=== PATIENT | female | born 1940 | race Caucasian/White ===

== ENCOUNTER → 2016-05-27 | Outpatient (CLI) | payer OTHER ==
[~2016-05-27] MED LIST: ASPI325T39 PO; CLC100X PO; CYCL0.052 OP; CYCL0.052 OPB; DULO60CA44 PO; FLAX100024 PO; GLIP-197 PO; HYDR25TA4 PO; LIVALO PO; METO1TAB66 PO; MULT-55 PO; NITR0.4S UT; NVLGI7030 SC; OMEG10003 PO; OMEP20CA9 PO; POLYSOL4 OPB; PRED20TA2 PO; RANI300T PO; TIMO0.5S35 OPB
--- NOTE | 2016-05-27 12:31 | MAMMOGRAPHY REPORT ---
BILATERAL DIGITAL SCREENING MAMMOGRAM WITH CAD: 05/27/2016 CLINICAL HISTORY: Routine screening. Patient has no complaints. TECHNIQUE: Current study was also evaluated with a Computer Aided Detection (CAD) system. Bilatera l CC and MLO views were obtained. COMPARISON: Comparison is made to exams dated: 05/19/2015 mammogram, 05/17/2014 mammogram, 04/26/2014 mammogram, 10/22/2013 mammogram, 04/24/2012 mammogram, and 04/22/2011 mammogram - [facility]. BREAST COMPOSITION: There are scattered areas of fibroglandular density in both breasts. FINDINGS: No suspicious masses, calcifications, or areas of architectural distortion are noted in e ither breast. There has been no significant interval change compared to prior exams. Bilateral katerina gn-appearing calcifications are not significantly changed. Small bilateral benign-appearing masses are not significantly changed. IMPRESSION: ACR BI-RADS CATEGORY 2: BENIGN There is no mammographic evidence of malignancy. A 1 year screening mammogram is recommended. The p atient will receive written notification of the results. Approximately 10% of breast cancers are not detected with mammography. A negative mammographic repor t should not delay biopsy if a clinically suggestive mass is present. Ramila Bond M.D. ah/:05/27/2016 11:08:45 Dry Wall Sprayer: Angelita CLEMENS)(Eric)(BD), [facility] letter sent: Normal 1/2 BI-RADS Code: ACR BI-RADS Category 2: Benign
== END | disposition home or self-care (01) ==
LOC: C.MAMM 10:24
PROVIDERS: ATTEND Internal Medicine
DX: Z12.31 Encounter for screening mammogram for malignant neoplasm of breast (principal)

== ENCOUNTER → 2016-07-08 | Outpatient (CLI) | payer OTHER ==
[~2016-07-08] MED LIST changes: +METO-452 PO; -METO1TAB66 PO
[2016-07-08 13:36] LABS: ESTIMATED AVERAGE GLUCOSE 174 mg/dl; HA1C FLAG Normal (Normal)
[2016-07-08 13:39] LABS: BLOOD UREA NITROGEN 20 mg/dl (7-18); BUN/CREATININE RATIO 21.9 (10-20); CALCIUM 8.5 mg/dl (8.5-10.1); CARBON DIOXIDE 29 mmol/L (21-32); CHLORIDE 104 mmol/L (98-107); CHOLESTEROL 186 mg/dl (0-200); CREATININE 0.89 mg/dl (0.60-1.20); GLUCOSE 190 mg/dl (70-99); POTASSIUM 4.1 mmol/L (3.5-5.1); SODIUM 139 mmol/L (136-145)
[2016-07-08 13:42] LABS: CHOLESTEROL/HDL RATIO 5.6; HDL CHOLESTEROL 33 mg/dl; TRIGLYCERIDES 170 mg/dl (0-150); VERY LOW DENSITY LIPOPROT CALC 34 mg/dl
--- NOTE | 2016-07-14 06:39 | CODING QUERY MEDICAL NECESSITY ---
SUPPORTING DIAGNOSIS NEEDED Dr. Seamus Morgan, A supporting diagnosis is required for the test/procedure performed on this patient in order for us to be reimbursed by the patient's insurance. Please provide a supporting diagnosis for the following test/procedure listed below next to the test name along with your signature. *If there is no additional diagnosis for this patient that would support the following test/procedure please document that below next to the test/procedure. Test(s)/Procedure(s) that require a supporting diagnosis: * [id number] GLYCATED HEMOGLOBIN DIAGNOSIS: DATE OF SERVICE: 07/08/16 Provider Signature: Date: Thank you Lloyd Pulliam [facility] Information Management Once completed, please kindly fax back to [phone] For questions please call [phone]
== END | disposition home or self-care (01) ==
LOC: C.LABSPEC 12:31
PROVIDERS: ATTEND Internal Medicine
DX: I25.10 Atherosclerotic heart disease of native coronary artery without angina pectoris (principal); E78.5 Hyperlipidemia, unspecified; I10 Essential (primary) hypertension; E11.65 Type 2 diabetes mellitus with hyperglycemia

== ENCOUNTER 2016-10-11 05:42 | Emergency (ER) | payer OTHER ==
[~2016-10-11] VITALS: Ht 154.9 cm; Wt 88.0 kg
[~2016-10-11 05:42] MED LIST changes: -CYCL0.052 OP; -METO-452 PO; +METO1TAB66 PO; -NVLGI7030 SC; -PRED20TA2 PO
[2016-10-11 05:46] VITALS: TEMP 36.5
[2016-10-11] MEDS ORDERED: RANITIDINE HCL 50 MG/100 ML D5W IV STA (06:07)
[2016-10-11] MEDS ORDERED: SODIUM CHLORIDE 0.9% 1000ML 1,000 ML IV STA (06:07)
[2016-10-11 06:10] VITALS: Ht 154.9 cm; Wt 88.0 kg
[2016-10-11] MEDS ORDERED: NVLGI7030 SC ×2 (06:12→06:13)
[2016-10-11 06:15] VITALS: O2SAT 92
[2016-10-11] MEDS ORDERED: CYCL0.052 OP (06:15)
--- NOTE | 2016-10-11 06:29 | EMERGENCY ROOM VISIT NOTE ---
History Report prepared by Nean: Tran Jama Under the Supervision of: Dr. Vaughn Mesa M.D. First contact with patient: 05:56 Chief Complaint: CONFUSION Stated Complaint: CONFUSION,ITCHING,RASH ON BACK/STOMACH History of Present Illness The patient is a 76 year old female who presents to the Emergency Room with complaints of an episode of confusion starting early this morning. The patient states that she has had hives on her belly and back for three days. She states that she has been taking Benadryl for them. She states she went to her PCP who told her to continue taking Benadryl and he would reevaluate her in a few days. She states that she has an appointment with him today. She notes that she is experiencing some confusion. The patient states that she last took Benadryl an hour ago. Her states that that is false. He states she last took Benadryl 5 hours ago with sleeping medication. He states that an hour later she was incoherently talking in her sleep. He states that a few moments later she got up and went to the restroom where he caught her trying to take 3 more sleeping pills. He states that he gathered them from her and told her she already took them, although she didn't remember. He reports that the patient then told him that it was for her nerves. He states that she went back to bed, but woke up an hour later to go to the restroom to take more Benadryl. The reports that at this point he wouldn't let her take them. He reports that she then stated she was thirsty, but wouldn't drink the water he had for her because there were fish in it. He reports that he got another glass of water , but she still wouldn't drink it because there were things in it. The states that the patient then went to the bathroom and yelled for him because there was something black on the toilet. The reports that there was nothing there. He notes that this was when he decided to bring her to the ED. The notes that all this time his was unstable when walking. He states that while on the way here she told him she saw 3 dogs when there was nothing there. The denies his falling and hitting her head. The patient denies abdominal pain. The patient currently rates her pain as a 6/10 in severity. Source of History: patient Onset: this morning Position: other (global) Symptom Intensity: 6/10 Quality: other (global) Timing: other (episode) Associated Symptoms: No abdominal pain Note: The patient complains of confusion, hallucinations, and being unstable on her feet. The patient's denies the patient falling and hitting her head. Review of Systems See HPI for pertinent positives & negatives. A total of 10 systems reviewed and were otherwise negative. Past Medical & Surgical Medical Problems: (1) Anxiety State Nos (2) Asthma, Unspecified (3) Congestive Heart Failure Nos (4) Depressive Disorder Nec (5) Diab Wendy Wo Compl, Type Ii Or Unspec Type, Uncontrolled (6) Diabetes (7) Esophageal Reflux (8) Hyperlipidemia Nec/Nos (9) Hypertension Nos (10) Lumbar Disc Displacement (11) Obesity, Nos (12) Pneumonia, Organism Nos (13) Unspecified Sleep Apnea Surgical Problems: (1) Percutaneous Translum Coron Angioplasty Status Family History No pertinent family history Social History Smoking Status: Never Smoker Alcohol Use: none Drug Use: none Marital Status: Housing Status: lives with significant other Occupation Status: retired Current/Historical Medications Scheduled Aspirin (Aspirin Ec), 325 MG PO QAM Cyclosporine (Ophth) (Restasis), 1 DROP OPB BID Duloxetine Hcl (Cymbalta), 60 MG PO QPM Flaxseed (Linseed) (Flaxseed Oil), 1,000 MG PO BID Hydrochlorothiazide (Hctz), 12.5 MG PO QAM Insulin Aspart 70/30 (Novolog Mix 70/30), 38 SC QAM Insulin Aspart 70/30 (Novolog Mix 70/30), 28 SC QPM Metoprolol Succinate (Toprol Xl), 50 MG PO QAM Multiple Vitamins W/ Minerals (Vision Vitamins), 1 TAB PO BID Sagle-3 Fatty Acids (Monon Oil-1000), 1,000 MG PO BID Omeprazole (Prilosec), 20 MG PO QAM Prednisone (Prednisone Tab), 0 PO DAILY Ranitidine Hcl (Zantac), 300 MG PO QPM Timolol Maleate (Ophth) (Timoptic), 1 DROP OPB QAM Scheduled PRN Nitroglycerin (Nitrostat), 0.4 MG UT UD PRN for Chest Pain Polyethylene Glycol-Propylene (Systane), 1 DROP OPB QID PRN for Dry Eye(s) Allergies Coded Allergies: No Known Allergies (Verified , 10/11/16) Physical Exam Vital Signs Date Time Temp Pulse Resp B/P (MAP) Pulse Ox O2 Delivery O2 Flow Rate FiO2 10/11/16 08:08 66 18 132/74 97 10/11/16 06:53 70 93 10/11/16 06:46 78 10/11/16 06:42 73 28 93 10/11/16 06:30 145/79 10/11/16 06:27 75 18 147/89 96 Room Air 91 132/93 86 14/79 10/11/16 06:15 92 Room Air 10/11/16 06:15 92 Room Air 10/11/16 05:46 36.5 81 20 127/82 94 Room Air Physical Exam GENERAL: Patient is a healthy-appearing well-nourished HEAD: Normocephalic atraumatic EYES: Ocular movements intact pupils equal and react to light OROPHARYNX mucous membranes are moist no exudates present no erythema or edema present NECK: Supple no nuchal rigidity CHEST: Good equal expansion LUNGS: Clear and equal to auscultation CARDIAC: Normal S1 and S2 ABDOMEN: Soft nontender no guarding BACK: No CVA tenderness EXTREMITIES: No pain upon palpation normal muscle strength in all groups no clubbing cyanosis or edema NEURO: Patient is following commands and answering questions appropriately. Alert and oriented x3 Cranial Nerves 2-12 grossly intact Medical Decision & Procedures Laboratory Results 10/11/16 06:20 Red Blood Count 4.89, Mean Corpuscular Volume 84.7, Mean Corpuscular Hemoglobin 26.6, Mean Corpuscular Hemoglobin Concent 31.4, Mean Platelet Volume 8.8, Neutrophils (%) (Auto) 64.7, Lymphocytes (%) (Auto) 26.8, Monocytes (%) (Auto) 7.4, Eosinophils (%) (Auto) 1.0, Basophils (%) (Auto) 0.1, Neutrophils # (Auto) 5.15, Lymphocytes # (Auto) 2.13, Monocytes # (Auto) 0.59, Eosinophils # (Auto) 0.08, Basophils # (Auto) 0.01 10/11/16 06:20 Test 10/11/16 06:09 10/11/16 06:20 Bedside Glucose 118 mg/dl (70-90) White Blood Count 7.96 K/uL (4.8-10.8) Red Blood Count 4.89 M/uL (4.2-5.4) Hemoglobin 13.0 g/dL (12.0-16.0) Hematocrit 41.4 % (37-47) Mean Corpuscular Volume 84.7 fL (80-100) Mean Corpuscular Hemoglobin 26.6 pg (25-34) Mean Corpuscular Hemoglobin Concent 31.4 g/dl (32-36) Platelet Count 211 K/uL (130-400) Mean Platelet Volume 8.8 fL (7.4-10.4) Neutrophils (%) (Auto) 64.7 % Lymphocytes (%) (Auto) 26.8 % Monocytes (%) (Auto) 7.4 % Eosinophils (%) (Auto) 1.0 % Basophils (%) (Auto) 0.1 % Neutrophils # (Auto) 5.15 K/uL (1.4-6.5) Lymphocytes # (Auto) 2.13 K/uL (1.2-3.4) Monocytes # (Auto) 0.59 K/uL (0.11-0.59) Eosinophils # (Auto) 0.08 K/uL (0-0.5) Basophils # (Auto) 0.01 K/uL (0-0.2) RDW Standard Deviation 50.1 fL (36.4-46.3) RDW Coefficient of Variation 16.3 % (11.5-14.5) Immature Granulocyte % (Auto) 0.0 % Immature Granulocyte # (Auto) 0.00 K/uL (0.00-0.02) Anion Gap 7.0 mmol/L (3-11) Est Creatinine Clear Calc Drug Dose 49.0 ml/min Estimated GFR () 63.8 Estimated GFR (Non- 55.1 BUN/Creatinine Ratio 22.6 (10-20) Calcium Level 8.1 mg/dl (8.5-10.1) Total Bilirubin 0.6 mg/dl (0.2-1) Direct Bilirubin 0.2 mg/dl (0-0.2) Aspartate Amino Transf (AST/SGOT) 19 U/L (15-37) Alanine Aminotransferase (ALT/SGPT) 20 U/L (12-78) Alkaline Phosphatase 131 U/L (45-117) Total Protein 7.0 gm/dl (6.4-8.2) Albumin 3.1 gm/dl (3.4-5.0) Thyroid Stimulating Hormone (TSH) 2.720 uIu/ml (0.300-4.500) Labs reviewed by ED physician. Medications Administered Medications (Trade) Dose Ordered Sig/Ramonita Route Start Time Stop Time Status Last Admin Dose Admin Sodium Chloride 1,000 ml @ 999 mls/hr Q1H1M STAT IV 10/11/16 06:07 10/11/16 07:07 DC 10/11/16 06:27 999 MLS/HR Ranitidine HCl (zANTac IV) 50 mg NOW STAT IV 10/11/16 06:07 10/11/16 06:08 DC 10/11/16 06:36 50 MG Methylprednisolone Sodium Succinate (Solu-Medrol IV) 125 mg NOW STAT IV 10/11/16 07:16 10/11/16 07:18 DC 10/11/16 07:31 125 MG ECG Indication: weakness Rate (beats per minute): 73 Rhythm: normal sinus Findings: no acute ischemic change, prolonged QT, no ectopy ED Course 0558: Past medical records reviewed. The patient was evaluated in room B2. A complete history and physical examination was performed. 0607: Ordered Ranitidine HCl 50 mg IV, NSS 1000 ml @ 999 mls/hr IV. Medical Decision Medication Reconciliation: I attest that I have personally reviewed the patient' s current medication list Blood Pressure Screening: Patient was found to have an elevated blood pressure and was referred to their primary care doctor for recheck and further treatment Differential diagnosis: Etiologies such as metabolic, infection, hypo/hyperglycemia, electrolyte abnormalities, cardiac sources, intracerebral event, toxicologic, neurologic, as well as others were entertained. This is a 76-year-old female who presents emergency department hallucinating after mixing Benadryl and her sleeping pill. Upon arrival the patient is conscious alert and oriented and I do feel that this was the cause of the reaction. In addition the patient does not have an elevation in her white blood count cell count. She is complaining of itching. Dr. Seamus Morgan's concerned about starting the patient on steroids due to her blood sugar. Pressure she looks good here so I will start her on Solu-Medrol as patient cannot stop scratching. She was also given Zantac. The patient has an appointment this afternoon with Dr. Seamus Morgan office which I believe she is well enough to follow-up with. Patient and family were in agreement with the treatment plan. Impression Primary Impression: Medication reaction Scribe Attestation The scribe's documentation has been prepared under my direction and personally reviewed by me in its entirety. I confirm that the note above accurately reflects all work, treatment, procedures, and medical decision making performed by me. Departure Information Dispostion Home / Self-Care Prescriptions Prednisone (Prednisone Tab) 20 Mg Tab 0 PO DAILY, #7 TAB 2 TABS DAILY FOR 2 DAYS, THEN 1 TAB DAILY FOR 2 DAYS, THEN 1/2 TAB DAILY FOR 2 DAYS. Prov: Vaughn Mesa MD 10/11/16 Referrals Александр Doan M.D. (PCP) Patient Instructions My [facility] Problem Qualifiers Primary Impression: Medication reaction Encounter type: initial encounter Qualified Codes: T88.7XXA - Unspecified adverse effect of drug or medicament, initial encounter
[2016-10-11 06:35] LABS: BASO % 0.1 %; BASO ABS # 0.01 K/uL (0-0.2); COMPLETE YES; HEMATOCRIT 41.4 % (37-47); LYMPH % 26.8 %; LYMPH ABS # 2.13 K/uL (1.2-3.4); MEAN CELL VOLUME 84.7 fL (80-100); MEAN CORPUSCULAR HEMOGLOBIN 26.6 pg (25-34); MEAN CORPUSCULAR HGB CONC 31.4 g/dl (32-36); MEAN PLATELET VOLUME 8.8 fL (7.4-10.4); MONO % 7.4 %; NEUT % 64.7 %; PLATELET COUNT 211 K/uL (130-400); RED BLOOD COUNT 4.89 M/uL (4.2-5.4); WHITE BLOOD COUNT 7.96 K/uL (4.8-10.8)
[2016-10-11 06:53] LABS: BUN/CREATININE RATIO 22.6 (10-20); CALCIUM 8.1 mg/dl (8.5-10.1); POTASSIUM 3.5 mmol/L (3.5-5.1)
[2016-10-11 07:04] LABS: THYROID STIMULATING HORMONE 2.72 uIu/ml (0.300-4.500)
[2016-10-11] MEDS ORDERED: METHYLPREDNISOLONE 125 MG VIAL IV STA (07:16)
[2016-10-11] MEDS ORDERED: PRED20TA2 PO (07:20)
[2016-10-11 08:08] VITALS: BP 132/74; PULSE 66; O2SAT 97
== END 2016-10-11 08:14 | disposition home or self-care (01) ==
LOC: C.EDB 05:44
DX: T88.7XXA Unspecified adverse effect of drug or medicament, initial encounter (principal); T45.0X5A Adverse effect of antiallergic and antiemetic drugs, initial encounter; X58.XXXA Exposure to other specified factors, initial encounter; F41.9 Anxiety disorder, unspecified; J45.909 Unspecified asthma, uncomplicated; F32.9 Major depressive disorder, single episode, unspecified; E11.9 Type 2 diabetes mellitus without complications; K21.9 Gastro-esophageal reflux disease without esophagitis; E78.5 Hyperlipidemia, unspecified; I10 Essential (primary) hypertension; E66.9 Obesity, unspecified; Z79.82 Long term (current) use of aspirin; Z79.4 Long term (current) use of insulin; Z79.899 Other long term (current) drug therapy

== ENCOUNTER → 2016-11-09 | Outpatient (CLI) | payer OTHER ==
[~2016-11-09] MED LIST changes: -CLC100X PO; -GLIP-197 PO; -LIVALO PO; +NVLGI7030 SC; +PRED20TA2 PO
[2016-11-09 14:01] LABS: ESTIMATED AVERAGE GLUCOSE 177 mg/dl; HA1C FLAG Normal (Normal)
== END | disposition home or self-care (01) ==
LOC: C.LABSPEC 12:24
PROVIDERS: ATTEND Internal Medicine
DX: E11.65 Type 2 diabetes mellitus with hyperglycemia (principal); I10 Essential (primary) hypertension; I25.10 Atherosclerotic heart disease of native coronary artery without angina pectoris

== ENCOUNTER → 2016-11-10 | Outpatient (CLI) | payer OTHER ==
[2016-11-10 13:55] LABS: ALT/SGPT 32 U/L (12-78); AST/SGOT 20 U/L (15-37); BLOOD UREA NITROGEN 14 mg/dl (7-18); BUN/CREATININE RATIO 16.5 (10-20); CALCIUM 8.8 mg/dl (8.5-10.1); CARBON DIOXIDE 32 mmol/L (21-32); CHLORIDE 104 mmol/L (98-107); CHOLESTEROL 210 mg/dl (0-200); CREATININE 0.84 mg/dl (0.60-1.20); GLUCOSE 108 mg/dl (70-99); POTASSIUM 3.7 mmol/L (3.5-5.1); SODIUM 140 mmol/L (136-145)
[2016-11-10 13:58] LABS: ALB/GLOB RATIO 0.8 (0.9-2); ALKALINE PHOSPHATASE 155 U/L (45-117); CHOLESTEROL/HDL RATIO 6.6; HDL CHOLESTEROL 32 mg/dl; TRIGLYCERIDES 261 mg/dl (0-150); VERY LOW DENSITY LIPOPROT CALC 52 mg/dl
--- NOTE | 2016-11-11 17:49 | CODING QUERY MEDICAL NECESSITY ---
SUPPORTING DIAGNOSIS NEEDED A supporting diagnosis is required for the test/procedure performed on this patient in order for us to be reimbursed by the patient's insurance. Please provide a supporting diagnosis for the following test/procedure listed below next to the test name along with your signature. *If there is no additional diagnosis for this patient that would support the following test/procedure please document that below next to the test/procedure. Test(s)/Procedure(s) that require a supporting diagnosis: * CMP DIAGNOSIS: * LDL DIRECT DIAGNOSIS: * LIPID PROFILE FASTING DIAGNOSIS: Provider Signature: Date: Thank you [employer] Information Management Once completed, please kindly fax back to [phone] For questions please call [phone]
== END | disposition home or self-care (01) ==
LOC: C.LABSPEC 12:36
PROVIDERS: ATTEND Internal Medicine
DX: I10 Essential (primary) hypertension (principal); I25.10 Atherosclerotic heart disease of native coronary artery without angina pectoris; E78.5 Hyperlipidemia, unspecified

== ENCOUNTER → 2016-12-08 | Outpatient (CLI) | payer OTHER ==
[2016-12-08 14:37] LABS: BASO % 0.1 %; BASO ABS # 0.01 K/uL (0-0.2); COMPLETE YES; EOS % 1.7 %; HEMATOCRIT 41.7 % (37-47); IG% 0.7 %; LYMPH % 21.9 %; LYMPH ABS # 1.97 K/uL (1.2-3.4); MEAN CELL VOLUME 85.8 fL (80-100); MEAN CORPUSCULAR HEMOGLOBIN 27.4 pg (25-34); MEAN CORPUSCULAR HGB CONC 31.9 g/dl (32-36); MEAN PLATELET VOLUME 9.2 fL (7.4-10.4); MONO % 6.5 %; NEUT % 69.1 %; PLATELET COUNT 277 K/uL (130-400); RED BLOOD COUNT 4.86 M/uL (4.2-5.4); WHITE BLOOD COUNT 8.99 K/uL (4.8-10.8)
[2016-12-08 14:50] LABS: ALT/SGPT 15 U/L (12-78); BLOOD UREA NITROGEN 16 mg/dl (7-18); BUN/CREATININE RATIO 14.5 (10-20); CALCIUM 9.1 mg/dl (8.5-10.1); CARBON DIOXIDE 28 mmol/L (21-32); CHLORIDE 103 mmol/L (98-107); GLUCOSE 156 mg/dl (70-99); POTASSIUM 3.7 mmol/L (3.5-5.1); SODIUM 138 mmol/L (136-145)
[2016-12-08 14:52] LABS: ALB/GLOB RATIO 0.8 (0.9-2); ALKALINE PHOSPHATASE 137 U/L (45-117); AST/SGOT 20 U/L (15-37)
[2016-12-08 16:10] LABS: LYME DISEASE AB IGG NEG (NEG); LYME DISEASE AB IGM NEG (NEG)
== END | disposition home or self-care (01) ==
LOC: C.LAB1850 13:13
PROVIDERS: ATTEND Internal Medicine Pulmonary Disease
DX: L50.9 Urticaria, unspecified (principal)

== ENCOUNTER → 2017-02-21 | Outpatient (CLI) | payer OTHER ==
[~2017-02-21] MED LIST changes: +METO-452 PO; -METO1TAB66 PO
--- NOTE | 2017-02-21 12:10 | DIAGNOSTIC IMAGING REPORT ---
CHEST 2 VIEWS ROUTINE CLINICAL HISTORY: Acute bronchitis. COMPARISON STUDY: Chest radiograph November 21, [address] September 23, 2014. FINDINGS: Lung volumes are normal. There is no pneumothorax or pleural effusion. Pulmonary vascularity is normal. Hazy right basilar opacity likely reflects epicardial fat pad. This is unchanged. Cardiomediastinal silhouette is stable. IMPRESSION: No acute cardiopulmonary findings. No change in appearance of the chest. Electronically signed by: Ashvin Hoang M.D. 02/21/2017 12:09 PM Dictated Date/Time: 02/21/2017 12:08 PM
== END | disposition home or self-care (01) ==
LOC: C.RAD1850 11:39
PROVIDERS: ATTEND Internal Medicine Pulmonary Disease
DX: J20.9 Acute bronchitis, unspecified (principal)

== ENCOUNTER → 2017-03-17 | Outpatient (CLI) | payer OTHER ==
[~2017-03-17] MED LIST changes: +CLR/5 PO; +DOXE10CA PO; +HYDR25CA PO; +LEVO-14 PO; +LIVALO PO; +MONT1TAB3 PO; +RANI300T2 PO
[2017-03-17 16:04] LABS: BASO % 0.6 %; BASO ABS # 0.04 K/uL (0-0.2); COMPLETE YES; EOS % 3.3 %; HEMATOCRIT 43.8 % (37-47); IG% 0.3 %; LYMPH ABS # 2.02 K/uL (1.2-3.4); MEAN CELL VOLUME 85.2 fL (80-100); MEAN CORPUSCULAR HEMOGLOBIN 26.7 pg (25-34); MEAN CORPUSCULAR HGB CONC 31.3 g/dl (32-36); MEAN PLATELET VOLUME 9.2 fL (7.4-10.4); MONO % 6.5 %; NEUT % 57.3 %; PLATELET COUNT 213 K/uL (130-400); RED BLOOD COUNT 5.14 M/uL (4.2-5.4); WHITE BLOOD COUNT 6.31 K/uL (4.8-10.8)
[2017-03-17 16:15] LABS: ALT/SGPT 22 U/L (12-78); AST/SGOT 22 U/L (15-37); BLOOD UREA NITROGEN 21 mg/dl (7-18); BUN/CREATININE RATIO 18.8 (10-20); CALCIUM 8.7 mg/dl (8.5-10.1); CARBON DIOXIDE 31 mmol/L (21-32); CHLORIDE 101 mmol/L (98-107); CHOLESTEROL 183 mg/dl (0-200); CREATININE 1.13 mg/dl (0.60-1.20); GLUCOSE 94 mg/dl (70-99); POTASSIUM 3.5 mmol/L (3.5-5.1); SODIUM 136 mmol/L (136-145); TRIGLYCERIDES 196 mg/dl (0-150); VERY LOW DENSITY LIPOPROT CALC 39 mg/dl
[2017-03-17 16:22] LABS: ALB/GLOB RATIO 0.9 (0.9-2); ALKALINE PHOSPHATASE 135 U/L (45-117); CHOLESTEROL/HDL RATIO 5.1; HDL CHOLESTEROL 36 mg/dl
[2017-03-18 07:00] LABS: ESTIMATED AVERAGE GLUCOSE 166 mg/dl; HA1C FLAG Normal (Normal)
== END | disposition home or self-care (01) ==
LOC: C.LABSPEC 15:30
PROVIDERS: ATTEND Internal Medicine
DX: I25.10 Atherosclerotic heart disease of native coronary artery without angina pectoris (principal); I10 Essential (primary) hypertension; E78.5 Hyperlipidemia, unspecified; E11.65 Type 2 diabetes mellitus with hyperglycemia; E03.9 Hypothyroidism, unspecified

== ENCOUNTER → 2017-04-07 | Outpatient (CLI) | payer OTHER ==
[~2017-04-07] MED LIST changes: -OMEG10003 PO; -PRED20TA2 PO; -RANI300T PO; +TIMO-31 OPB; -TIMO0.5S35 OPB
--- NOTE | 2017-04-07 12:58 | DIAGNOSTIC IMAGING REPORT ---
CHEST 2 VIEWS ROUTINE CLINICAL HISTORY: 77 years-old Female presenting with R05 [id number]. TECHNIQUE: PA and lateral views of the chest were obtained. COMPARISON: 02/21/2017. FINDINGS: Atherosclerosis of aortic arch. Cardiac silhouette enlarged. Apparent double density along the right heart border may relate to left atrial enlargement, unchanged. Nodular opacity at the right lung base. Minimal obscuration of the left ventricular apex may be related to a prominent pericardial fat pad. No pleural effusion or pneumothorax. Scoliotic curvature of the thoracolumbar junction. Upper abdomen normal. IMPRESSION: 1. Nodular opacity at the right lung base unchanged since 2013 consistent with benign etiology. 2. No convincing evidence of acute cardiopulmonary disease. 3. Cardiomegaly with suspected left atrial enlargement. Electronically signed by: Rafita Salcedo M.D. 04/07/2017 12:57 PM Dictated Date/Time: 04/07/2017 12:54 PM
== END | disposition home or self-care (01) ==
LOC: C.RAD1850 12:41
PROVIDERS: ATTEND Physician Assistant
DX: R05 Cough (principal); R91.1 Solitary pulmonary nodule; I51.7 Cardiomegaly

== ENCOUNTER → 2017-04-18 | Day surgery (SDC) | payer OTHER ==
[2017-03-22 11:40] VITALS: Ht 152.4 cm; Wt 88.2 kg
[~2017-04-18] VITALS: Ht 152.4 cm; Wt 88.2 kg
[~2017-04-18] MED LIST changes: +500ML BSS 0.3ML EPI 1:1000PF IRRIG ONE; +ACETAMINOPHEN 325 MG TAB PO PRN; +AMVISC PLUS 0.8ML SYRINGE INT OCU ONE; +ATROPINE SULFATE 0.1 MG/ML 5ML SYR IV PRN; +BRIMONIDINE TART 0.2% OP SOLN PER DROP CHARGE ONE; +BRIMONIDINE TARTRATE 0.2% 5ML ONE; +BSS FLUSH ONE; +ENDOCOAT 0.85ML SYRINGE INT OCU ONE; +EpHEDrine SULFATE INJ 50 MG/ML AMP IV PRN; +EpINEphrine INJ 1MG/ML AMP 1 MG/ML AMP ONE; +LACTATED RINGER'S 1000ML 500 ML IV SCH; +LIDOCAINE 4% OP SOLN DROP CHARGE ONE; +LIDOCAINE 4% OP SOLN DROP CHARGE OPL SCH; +LIDOCAINE HCL 1% MPF 2 ML VIAL ONE; +MIDAZOLAM HCL 1 MG/ML 2ML VIAL ONE; +MOXIFLOXACIN OPH SOLN PER DROP CHARGE ONE; +POVIDONE-IODINE OP SOLN 30 ML BTL ONE; +PROPARACAINE 0.5% OP SOLN PER DROP CHARGE OPL SCH; -TIMO-31 OPB; +TIMO0.5S35 OPB; +TOBRAMYCIN/DEXAMETHASONE OPH OINT PER APPLN CHARGE ONE
[2017-04-18] MEDS: PHENYLEPHRINE HCL 2.5% OP SOLN PER DROP CHARGE OPL SCH ×2 (06:36→06:43)
[2017-04-18] MEDS: TROPICAMIDE 1% OP SOLN PER DROP CHARGE OPL SCH ×2 (06:38→06:44)
[2017-04-18] MEDS: CYCLOPENTOLATE HCL 1% OP SOLN PER DROP CHARGE OPL SCH ×2 (06:39→06:48)
[2017-04-18] MEDS: KETOROLAC 0.5% OP SOLN PER DROP CHARGE OPL SCH ×2 (06:40→06:49)
[2017-04-18] MEDS: MOXIFLOXACIN OPH SOLN PER DROP CHARGE OPL SCH ×2 (06:42→06:53)
--- NOTE | 2017-04-18 06:55 | History & Physical Bridge - SC ---
H&P Re-Evaluation Bridge Note: I have examined the patient, reviewed the History & Physical and in the interval since the performance of the History & Physical I have noted the following changes of clinical significance: No changes noted
--- NOTE | 2017-04-18 07:31 | [facility] Operative Report ---
Operative Report Operative Date Apr 18, 2017. Pre-Operative Diagnosis Cataract Left Eye Post-Operative Diagnosis Same Procedure(s) Performed Left Cataract Phacoemulsification With Intraocular Lens Implant Surgeon Dr. Dempsey Cow Tester Surgeon(s) None Estimated Blood Loss 0 Findings cataract left eye Fluids (cc crystalloids) see anesthesia record Specimens None Drains none Anesthesia local with sedation Complication(s) None Disposition Recovery Room / PACU Implants [id number] 23.5 Indications decreased vision left eye Description of Procedure After informed consent was obtained in the holding area the patient was wheeled back to the operating room where cardiac monitoring leads and oxygen by nasal cannula was administered by Anesthesia. Gentle IV sedation was given, and the patient's left eye was prepped and draped in usual sterile fashion. A wire lid speculum was placed into the left eye and the operating microscope was swung into position. Using 0.12 forceps and a Supersharp blade a paracentesis port was made 2 o'clock hours away from the 3 o'clock position of the patient's left eye. 1% non-preserved Lidocaine was then injected into the anterior chamber for anesthesia. A 2.0 mm keratotome blade was then used to make a shelved clear corneal incision at the 3 o'clock position of the left eye. Amvisc was injected into the anterior chamber and a cystotome and Utrata forceps were used to perform a curvilinear capsulorrhexis. BSS on a hydrodissection cannula was used to hydrodissect the lens nucleus away from the capsular bag. The phacoemulsification handpiece was then used in a stop and chop fashion to remove the lens nucleus. The irrigation and aspiration handpiece was then used to remove the residual cortical material. Amvisc was injected into the capsular bag and anterior chamber and a [employer]ch [employer] Lomb MX60 23.5 Diopter intraocular lens was injected into the capsular bag. Irrigation and aspiration handpiece was used to remove the residual viscoelastic material. The wounds were hydrated and noted to be watertight. The wire lid speculum was removed from the eye. Vigamox, Brimonidine, and TobraDex ointment were placed on the eye and it was shielded. It should be noted that EndoCoat was used extensively during the case to protect the cornea endothelium. DISPOSITION: The patient tolerated the procedure well and was wheeled to the post anesthesia care unit in stable condition. I attest to the content of the Intraoperative Record and any orders documented therein. Any exceptions are noted below. I attest to the content of the Intraoperative Record and any orders documented therein. Any exceptions are noted below.
--- NOTE | 2017-04-18 07:32 | Discharge Instructions-SurgCtr ---
Discharge Instructions Date of Service Apr 18, 2017. Visit Reason for Visit: Cataract Left Eye Discharge Discharge Diagnosis / Problem: Cataract left eye Discharge Goals Goal(s): Improve function Activity Recommendations Activity Limitations: per Instructions/Follow-up section Lifting Limitations: no more than 5 pounds Anesthesia . Post Anesthesia Instructions: If you have had General Anesthesia or IV Sedation: * Do not drive today. * Resume driving when surgeon permits. * Do not make important decisions or sign legal documents today. * Call surgeon for: 1. Temperature elevations greater than 101 degrees F. 2. Uncontrollable pain. 3. Excessive bleeding. 4. Persistent nausea and vomiting. 5. Medication intolerance (nausea, vomiting or rash). * For nausea and vomiting use only clear liquids such as: tea, soda, bouillon until nausea subsides, then gradually increase diet as tolerated. * If you have any concerns or questions, call your surgeon's office. If physician is unavailable and it is an emergency, call 911 or go to the nearest emergency room. . Instructions / Follow-Up Instructions / Follow-Up ACTIVITY RECOMMENDATIONS: * Light activities * You may walk outside, read, watch television. * Mild irritation and blurred vision are common for the first few days, redness around the white part of the eye is common. MEDICATIONS: Resume previous medications unless instructed otherwise by your surgeon. Eye drops (today and tomorrow): Vigamox or Polytrim - one drop in operative eye every 2 hours while awake Prednisolone 1% - one drop in operative eye every 2 hours while awake SPECIAL CARE INSTRUCTIONS: * If any problems or concerns, please call Dr. Dempsey's office at . * Keep plastic shield taped over eye to sleep at night. * Keep plastic shield taped over eye except to administer eye drops. * Keep plastic shield on until office visit the following day. FOLLOW UP VISIT: Follow-up with Dr. Dempsey in the [place] office as scheduled. If not already scheduled, please call the office at . Diet Recommendations Home Diet: resume previous diet Procedures Procedures Performed: Left Cataract Phacoemulsification With Intraocular Lens Implant Pending Studies Studies pending at discharge: no Medical Emergencies . Who to Call and When: Medical Emergencies: If at any time you feel your situation is an emergency, please call 911 immediately. . Non-Emergent Contact Non-Emergency issues call your: [employer] T[employer] Assembler . . "Provider Documentation" section prepared by Clay Dempsey. .
[2017-04-18 07:34] VITALS: TEMP 36.2
[2017-04-18 07:59] VITALS: BP 124/73; PULSE 61; O2SAT 95
--- NOTE | 2017-04-18 08:00 | Anesthesiology Progress Note ---
Anesthesia Post Op Note Date & Time Apr 18, 2017 at 07:59 Vital Signs Pain Intensity: 0 Vital Signs Past 12 Hours Date Time Temp Pulse Resp B/P (MAP) Pulse Ox O2 Delivery O2 Flow Rate FiO2 04/18/17 07:34 36.2 64 18 107/69 (82) 96 Room Air 04/18/17 06:30 36.7 76 16 118/71 (87) 97 Room Air Notes Mental Status: alert / awake / arousable, participated in evaluation Nausea / Vomiting: adequately controlled Pain: adequately controlled Airway Patency, RR, SpO2: stable & adequate BP & HR: stable & adequate Anesthetic Complications: no major complications apparent
== END | disposition home or self-care (01) ==
LOC: X.SURG 06:10
PROVIDERS: ATTEND Ophthalmology
DX: E11.36 Type 2 diabetes mellitus with diabetic cataract (principal); H26.9 Unspecified cataract; I10 Essential (primary) hypertension; F32.9 Major depressive disorder, single episode, unspecified; G47.33 Obstructive sleep apnea (adult) (pediatric); I25.10 Atherosclerotic heart disease of native coronary artery without angina pectoris; Z98.890 Other specified postprocedural states; Z90.710 Acquired absence of both cervix and uterus; Z90.89 Acquired absence of other organs; E66.9 Obesity, unspecified; Z68.38 Body mass index [BMI] 38.0-38.9, adult

== ENCOUNTER → 2017-04-27 | Outpatient (CLI) | payer OTHER ==
[~2017-04-27] MED LIST changes: -500ML BSS 0.3ML EPI 1:1000PF IRRIG ONE; -ACETAMINOPHEN 325 MG TAB PO PRN; -AMVISC PLUS 0.8ML SYRINGE INT OCU ONE; -ATROPINE SULFATE 0.1 MG/ML 5ML SYR IV PRN; -BRIMONIDINE TART 0.2% OP SOLN PER DROP CHARGE ONE; -BRIMONIDINE TARTRATE 0.2% 5ML ONE; -BSS FLUSH ONE; -ENDOCOAT 0.85ML SYRINGE INT OCU ONE; -EpHEDrine SULFATE INJ 50 MG/ML AMP IV PRN; -EpINEphrine INJ 1MG/ML AMP 1 MG/ML AMP ONE; -LACTATED RINGER'S 1000ML 500 ML IV SCH; -LIDOCAINE 4% OP SOLN DROP CHARGE ONE; -LIDOCAINE 4% OP SOLN DROP CHARGE OPL SCH; -LIDOCAINE HCL 1% MPF 2 ML VIAL ONE; -MIDAZOLAM HCL 1 MG/ML 2ML VIAL ONE; -MOXIFLOXACIN OPH SOLN PER DROP CHARGE ONE; -POVIDONE-IODINE OP SOLN 30 ML BTL ONE; -PROPARACAINE 0.5% OP SOLN PER DROP CHARGE OPL SCH; -TOBRAMYCIN/DEXAMETHASONE OPH OINT PER APPLN CHARGE ONE
--- NOTE | 2017-04-27 12:38 | DIAGNOSTIC IMAGING REPORT ---
L RIBS UNILATERAL WITH PA CHEST CLINICAL HISTORY: LEFT RIB PAIN pain COMPARISON STUDY: None FINDINGS: Moderate cardiomegaly. Lungs are considered clear. Evaluation of the ribs is a nondisplaced cortical fracture anterior left seventh rib. All remaining ribs are unremarkable. No evidence for pneumothorax. IMPRESSION: 1. Nondisplaced cortical fracture anterior left seventh rib. 2. Otherwise negative study. 3. No acute process of the chest. The above report was generated using voice recognition software. It may contain grammatical, syntax or spelling errors. Electronically signed by: Corby Field M.D. 04/27/2017 12:37 PM Dictated Date/Time: 04/27/2017 12:35 PM
== END | disposition home or self-care (01) ==
LOC: C.RAD 12:02
PROVIDERS: ATTEND Internal Medicine
DX: R07.81 Pleurodynia (principal); S22.32XA Fracture of one rib, left side, initial encounter for closed fracture; X58.XXXA Exposure to other specified factors, initial encounter

== ENCOUNTER → 2017-05-02 | Day surgery (SDC) | payer OTHER ==
[2017-04-29 14:47] VITALS: Ht 152.4 cm; Wt 88.2 kg
[~2017-05-02] VITALS: Ht 152.4 cm; Wt 88.2 kg
[~2017-05-02] MED LIST changes: +ATROPINE SULFATE 0.1 MG/ML 5ML SYR IV PRN; +BRIMONIDINE TART 0.2% OP SOLN PER DROP CHARGE ONE; +CYCLOPENTOLATE HCL 1% OP SOLN PER DROP CHARGE OPR SCH; +EpHEDrine SULFATE INJ 50 MG/ML AMP IV PRN; +EpINEphrine INJ 1MG/ML AMP 1 MG/ML AMP ONE; +KETOROLAC 0.5% OP SOLN PER DROP CHARGE OPR SCH; +LIDOCAINE 4% OP SOLN DROP CHARGE ONE; +LIDOCAINE 4% OP SOLN DROP CHARGE OPR SCH; +LIDOCAINE HCL 1% MPF 2 ML VIAL ONE; +MIDAZOLAM HCL 1 MG/ML 2ML VIAL ONE; +MOXIFLOXACIN OPH SOLN PER DROP CHARGE ONE; +MOXIFLOXACIN OPH SOLN PER DROP CHARGE OPR SCH; +ONDANSETRON INJ 2 MG/ML 2 ML VIAL IV PRN; +PHENYLEPHRINE HCL 2.5% OP SOLN PER DROP CHARGE OPR SCH; +POVIDONE-IODINE OP SOLN 30 ML BTL ONE; +PROPARACAINE 0.5% OP SOLN PER DROP CHARGE OPR SCH; +TOBRAMYCIN/DEXAMETHASONE OPH OINT PER APPLN CHARGE ONE; +TROPICAMIDE 1% OP SOLN PER DROP CHARGE OPR SCH
[2017-05-02 06:33] VITALS: BP 157/68; PULSE 76; TEMP 38.1; O2SAT 94
== END | disposition home or self-care (01) ==
LOC: X.SURG 06:30
PROVIDERS: ATTEND Ophthalmology
DX: H26.9 Unspecified cataract (principal); Z53.9 Procedure and treatment not carried out, unspecified reason

== ENCOUNTER → 2017-06-20 | Day surgery (SDC) | payer OTHER ==
[2017-05-30 11:56] VITALS: Ht 152.4 cm; Wt 88.6 kg
[~2017-06-20] VITALS: Ht 152.4 cm; Wt 88.6 kg
[~2017-06-20] MED LIST changes: +500ML BSS 0.3ML EPI 1:1000PF IRRIG ONE; +ACETAMINOPHEN 325 MG TAB PO PRN; +AMVISC PLUS 0.8ML SYRINGE INT OCU ONE; +BSS FLUSH ONE; -CYCLOPENTOLATE HCL 1% OP SOLN PER DROP CHARGE OPR SCH; +ENDOCOAT 0.85ML SYRINGE INT OCU ONE; -KETOROLAC 0.5% OP SOLN PER DROP CHARGE OPR SCH; +LACTATED RINGER'S 1000ML 500 ML IV SCH; -MOXIFLOXACIN OPH SOLN PER DROP CHARGE OPR SCH; -ONDANSETRON INJ 2 MG/ML 2 ML VIAL IV PRN; -PHENYLEPHRINE HCL 2.5% OP SOLN PER DROP CHARGE OPR SCH; -TROPICAMIDE 1% OP SOLN PER DROP CHARGE OPR SCH
[2017-06-20] MEDS: PHENYLEPHRINE HCL 2.5% OP SOLN PER DROP CHARGE OPR SCH ×2 (07:35→07:44)
[2017-06-20] MEDS: TROPICAMIDE 1% OP SOLN PER DROP CHARGE OPR SCH ×2 (07:36→07:45)
[2017-06-20] MEDS: CYCLOPENTOLATE HCL 1% OP SOLN PER DROP CHARGE OPR SCH ×2 (07:37→07:46)
[2017-06-20] MEDS: KETOROLAC 0.5% OP SOLN PER DROP CHARGE OPR SCH ×2 (07:38→07:47)
[2017-06-20] MEDS: MOXIFLOXACIN OPH SOLN PER DROP CHARGE OPR SCH ×2 (07:39→07:48)
--- NOTE | 2017-06-20 08:30 | [facility] Operative Report ---
Operative Report Operative Date Jun 20, 2017. Pre-Operative Diagnosis Right eye cataract Post-Operative Diagnosis Same as preop Procedure(s) Performed Right Cataract Phacoemulsification With Intraocular Lens Implant Surgeon Dr. Dempsey Senior Mechanical Estimator Surgeon(s) None Estimated Blood Loss 0 mL Findings cataract right eye Fluids see anesthesia record Specimens None Drains None Anesthesia Type MAC Complication(s) none Disposition no Recovery Room / PACU Indications decreased vision right eye Description of Procedure After informed consent was obtained in the holding area the patient was wheeled back to the operating room where cardiac monitoring leads and oxygen by nasal cannula was administered by Anesthesia. Gentle IV sedation was given, and the patient's right eye was prepped and draped in usual sterile fashion. A wire lid speculum was placed into the right eye and the operating microscope was swung into position. Using 0.12 forceps and a Supersharp blade a paracentesis port was made 2 o'clock hours away from the 9 o'clock position of the patient's right eye. 1% non-preserved Lidocaine was then injected into the anterior chamber for anesthesia. A 2.0 mm keratotome blade was then used to make a shelved clear corneal incision at the 9 o'clock position of the right eye. Amvisc was injected into the anterior chamber and a cystotome and Utrata forceps were used to perform a curvilinear capsulorrhexis. BSS on a hydrodissection cannula was used to hydrodissect the lens nucleus away from the capsular bag. The phacoemulsification handpiece was then used in a stop and chop fashion to remove the lens nucleus. The irrigation and aspiration handpiece was then used to remove the residual cortical material. Amvisc was injected into the capsular bag and anterior chamber and a Bausch [employer] Lomb MX60 23.5 Diopter intraocular lens was injected into the capsular bag. Irrigation and aspiration handpiece was used to remove the residual viscoelastic material. The wounds were hydrated and noted to be watertight. The wire lid speculum was removed from the eye. Vigamox, Brimonidine, and TobraDex ointment were placed on the eye and it was shielded. It should be noted that EndoCoat was used extensively during the case to protect the cornea endothelium. DISPOSITION: The patient tolerated the procedure well and was wheeled to the post anesthesia care unit in stable condition. I attest to the content of the Intraoperative Record and any orders documented therein. Any exceptions are noted below. I attest to the content of the Intraoperative Record and any orders documented therein. Any exceptions are noted below.
--- NOTE | 2017-06-20 08:31 | Discharge Instructions-SurgCtr ---
Discharge Instructions Date of Service Jun 20, 2017. Visit Reason for Visit: Cataract Right Eye Discharge Discharge Diagnosis / Problem: cataract right eye Discharge Goals Goal(s): Improve function Activity Recommendations Activity Limitations: per Instructions/Follow-up section Lifting Limitations: no more than 5 pounds Anesthesia . Post Anesthesia Instructions: If you have had General Anesthesia or IV Sedation: * Do not drive today. * Resume driving when surgeon permits. * Do not make important decisions or sign legal documents today. * Call surgeon for: 1. Temperature elevations greater than 101 degrees F. 2. Uncontrollable pain. 3. Excessive bleeding. 4. Persistent nausea and vomiting. 5. Medication intolerance (nausea, vomiting or rash). * For nausea and vomiting use only clear liquids such as: tea, soda, bouillon until nausea subsides, then gradually increase diet as tolerated. * If you have any concerns or questions, call your surgeon's office. If physician is unavailable and it is an emergency, call 911 or go to the nearest emergency room. . Instructions / Follow-Up Instructions / Follow-Up ACTIVITY RECOMMENDATIONS: * Light activities * You may walk outside, read, watch television. * Mild irritation and blurred vision are common for the first few days, redness around the white part of the eye is common. MEDICATIONS: Resume previous medications unless instructed otherwise by your surgeon. Eye drops (today and tomorrow): Polytrim - one drop in operative eye every 2 hours while awake Prednisolone 1% - one drop in operative eye every 2 hours while awake SPECIAL CARE INSTRUCTIONS: * If any problems or concerns, please call Dr. Dempsey's office at . * Keep plastic shield taped over eye to sleep at night. * Keep plastic shield taped over eye except to administer eye drops. * Keep plastic shield on until office visit the following day. FOLLOW UP VISIT: Follow-up with Dr. Dempsey in the [place] office as scheduled. If not already scheduled, please call the office at . Diet Recommendations Home Diet: resume previous diet Procedures Procedures Performed: Right Cataract Phacoemulsification With Intraocular Lens Implant Pending Studies Studies pending at discharge: no Medical Emergencies . Who to Call and When: Medical Emergencies: If at any time you feel your situation is an emergency, please call 911 immediately. . Non-Emergent Contact Non-Emergency issues call your: Disability Manager . . "Provider Documentation" section prepared by Clay Dempsey. .
[2017-06-20 08:33] VITALS: TEMP 36.7
[2017-06-20 08:54] VITALS: BP 135/87; PULSE 56; O2SAT 97
--- NOTE | 2017-06-20 09:02 | Anesthesia Progress Nt - [facility] ---
Anesthesia Post Op Note Date & Time Jun 20, 2017 at 09:02 Vital Signs Pain Intensity: 0 Vital Signs Past 12 Hours Date Time Temp Pulse Resp B/P (MAP) Pulse Ox O2 Delivery O2 Flow Rate FiO2 06/20/17 08:54 56 18 135/87 (103) 97 Room Air 06/20/17 08:33 36.7 58 16 133/78 (96) 96 Room Air 06/20/17 07:12 36.6 68 18 144/82 (102) 95 Room Air Notes Mental Status: alert / awake / arousable, participated in evaluation Pt Amnestic to Procedure: Yes Nausea / Vomiting: adequately controlled Pain: adequately controlled Airway Patency, RR, SpO2: stable & adequate BP & HR: stable & adequate Hydration State: stable & adequate Anesthetic Complications: no major complications apparent
== END | disposition home or self-care (01) ==
LOC: X.SURG 06:59
PROVIDERS: ATTEND Ophthalmology
DX: H25.11 Age-related nuclear cataract, right eye (principal); I10 Essential (primary) hypertension; E11.9 Type 2 diabetes mellitus without complications; E78.00 Pure hypercholesterolemia, unspecified; F41.9 Anxiety disorder, unspecified; F32.9 Major depressive disorder, single episode, unspecified; I51.9 Heart disease, unspecified; Z79.899 Other long term (current) drug therapy; Z79.82 Long term (current) use of aspirin; Z79.4 Long term (current) use of insulin

== ENCOUNTER → 2017-08-01 | Outpatient (CLI) | payer OTHER ==
[~2017-08-01] MED LIST changes: -500ML BSS 0.3ML EPI 1:1000PF IRRIG ONE; -ACETAMINOPHEN 325 MG TAB PO PRN; -AMVISC PLUS 0.8ML SYRINGE INT OCU ONE; -ATROPINE SULFATE 0.1 MG/ML 5ML SYR IV PRN; -BRIMONIDINE TART 0.2% OP SOLN PER DROP CHARGE ONE; -BSS FLUSH ONE; -ENDOCOAT 0.85ML SYRINGE INT OCU ONE; -EpHEDrine SULFATE INJ 50 MG/ML AMP IV PRN; -EpINEphrine INJ 1MG/ML AMP 1 MG/ML AMP ONE; -LACTATED RINGER'S 1000ML 500 ML IV SCH; -LIDOCAINE 4% OP SOLN DROP CHARGE ONE; -LIDOCAINE 4% OP SOLN DROP CHARGE OPR SCH; -LIDOCAINE HCL 1% MPF 2 ML VIAL ONE; -MIDAZOLAM HCL 1 MG/ML 2ML VIAL ONE; -MOXIFLOXACIN OPH SOLN PER DROP CHARGE ONE; -POVIDONE-IODINE OP SOLN 30 ML BTL ONE; -PROPARACAINE 0.5% OP SOLN PER DROP CHARGE OPR SCH; -TIMO0.5S35 OPB; +TIMO0.5S4 OPB; -TOBRAMYCIN/DEXAMETHASONE OPH OINT PER APPLN CHARGE ONE
--- NOTE | 2017-08-01 12:25 | DIAGNOSTIC IMAGING REPORT ---
CHEST 2 VIEWS ROUTINE HISTORY: 77 years-old Female J20.9 , R04.2 acute congestion with productive cough COMPARISON: Chest radiographs 04/07/2017 TECHNIQUE: PA and lateral views of the chest FINDINGS: Cardiac silhouette is again mildly enlarged, unchanged. Calcification of the aorta redemonstrated. Unchanged subcentimeter nodular opacity of the right lung base measuring 12 mm. No pneumothorax, pleural effusion, new focal airspace consolidation or overt pulmonary edema. Degenerative changes of the shoulders and spine. IMPRESSION: Cardiomegaly without acute process The above report was generated using voice recognition software. It may contain grammatical, syntax or spelling errors. Electronically signed by: Uvaldo Yo M.D. 08/01/2017 12:24 PM Dictated Date/Time: 08/01/2017 12:22 PM
== END | disposition home or self-care (01) ==
LOC: C.LAB1850 12:04
PROVIDERS: ATTEND Internal Medicine Pulmonary Disease
DX: J20.9 Acute bronchitis, unspecified (principal); R04.2 Hemoptysis; I51.7 Cardiomegaly

== ENCOUNTER → 2017-11-16 | Outpatient (CLI) | payer OTHER ==
[~2017-11-16] MED LIST changes: +TIMO-31 OPB; -TIMO0.5S4 OPB
[2017-11-16 18:25] LABS: ALBUMIN 3.6 gm/dl (3.4-5.0); ALKALINE PHOSPHATASE 134 U/L (45-117); ALT/SGPT 27 U/L (12-78); AST/SGOT 23 U/L (15-37); BLOOD UREA NITROGEN 20 mg/dl (7-18); CALCIUM 8.5 mg/dl (8.5-10.1); CARBON DIOXIDE 28 mmol/L (21-32); CHOLESTEROL 176 mg/dl (0-200); CREATININE 1.14 mg/dl (0.60-1.20); GLUCOSE 51 mg/dl (70-99); LDL CHOLESTEROL (DIRECT) 127 mg/dl; POTASSIUM 3.8 mmol/L (3.5-5.1); SODIUM 138 mmol/L (136-145); TOTAL PROTEIN 8.1 gm/dl (6.4-8.2)
[2017-11-17 06:27] LABS: HEMOGLOBIN A1C 8.2 % (4.5-5.6)
== END | disposition home or self-care (01) ==
LOC: C.LABSPEC 17:32
PROVIDERS: ATTEND Internal Medicine
DX: I25.10 Atherosclerotic heart disease of native coronary artery without angina pectoris (principal); E11.65 Type 2 diabetes mellitus with hyperglycemia; E78.5 Hyperlipidemia, unspecified; I10 Essential (primary) hypertension

== ENCOUNTER 2021-02-07 20:31 | Inpatient (IN) ==
[2021-02-07] MEDS ORDERED: SODIUM CHLORIDE 0.9% 500 ML IV STA (20:53)
[2021-02-07] MEDS ORDERED: ONDANSETRON INJ 2 MG/ML 2 ML VIAL IV STA (20:53)
[2021-02-07] MEDS ORDERED: ACETAMINOPHEN 1000 MG/100 ML IV IV STA (20:53)
--- NOTE | 2021-02-07 21:02 | Emergency Department Note ---
Impression & Plan Precordial chest pain, Right rib fracture, Compression fracture of T4 vertebra, Traumatic hematoma of buttock, Fall down stairs, Contusion of left hand, Contusion of right hand ED Provider Note NAME: EDGARDO CASTELLANO AGE: 80 SEX: F : 1940 ARRIVES VIA: Ambulance INFORMANT: [Patient][family, nursing] ED PROVIDER(S): [Doroteo Huerta MD] CHIEF COMPLAINT: Chest pain, fall HISTORY OF PRESENT ILLNESS: The patient is a 80-year-old female who states that she has had chest pain on the left that has been moderate in severity for around 2 weeks. She was on her way to the hospital to have things checked and fell down 14 [address] stairs. She thinks that she tumbled down the stairs. As per her family, she was confused at the bottom for 2 or 3 minutes but then came back to her normal mental state. She struck her head but did not lose consciousness. She presents in a stiff cervical collar. She complains of pain along the right posterior chest wall and the right lower back. She has bruising to both dorsal hands. Her left shoulder is a bit sore. She denies any headache or neck pain. She denies any abdominal pain. No lower extremity discomfort. She does take aspirin, no other stronger blood thinners. Her blood sugar at the house was around 230 as per her family. REVIEW OF SYSTEMS: See HPI for pertinent positives and negatives. A total of ten systems were reviewed and were otherwise negative. PMHx/PSHx: See Below SOCIAL HISTORY: See Below. PHYSICAL EXAM: GENERAL: Patient is in no acute distress. HEENT: No acute trauma, normocephalic atraumatic, mucous membranes moist, no nasal congestion, no scleral icterus. NECK: No stridor, no adenopathy, stiff collar in place. LUNGS: Clear to auscultation bilaterally, no wheeze, no rhonchi, breath sounds equal. HEART: Without murmurs gallops or rubs, mildly tachycardic, regular rhythm. ABDOMEN: Soft, nontender, bowel sounds positive, no hernias, no peritonitis. EXTREMITIES: No cyanosis or edema. She has contusions forming to the dorsum of both hands at the base of her fingers-no significant pain over the contusions with palpation. No gross deformities. She does have some pain with palpation of the right fifth PIP joint, no gross deformity. The wrists, elbows and shoulders do not seem to give her any discomfort with movement. No pain to move the joints of the lower extremities. NEUROLOGIC: Oriented x 3, no acute motor or sensory deficits, no focal weakness. SKIN: No rash, no jaundice, no diaphoresis. Back: No contusions, no bony step-offs. There is a larger hematoma noted to the left buttock. DIFFERENTIAL DIAGNOSIS: Cardiac ischemia, aortic dissection, pulmonary embolism, pneumothorax, pneumonia, pericarditis, myocarditis, esophageal rupture, GERD, cholecystitis, pancreatitis, as well as other pathologies. Differential also includes intrac ranial injury, C-spine injury, thoracic or lumbar spine injury, rib fracture, pneumothorax, intra-abdominal trauma, extremity fracture, contusion, sprain, strain, among others. EMERGENCY DEPARTMENT COURSE/PROCEDURES: ECG: Indication was chest pain and fall. The ECG shows a sinus tachycardia with a rate of 122. There is no ST elevation, no PVCs. The QTc is 475. Continuous Cardiac Monitoring: An order was placed for continuous cardiac m onitoring. The monitor shows a rate of 108 with sinus tachycardia. Critical Care Note: I have personally spent 53 minutes of critical care time in the direct management of this patient. This includes bedside care, interpretation of diagnostic studies, and testing, discussion with consultants, patient, and family members, and other required patient management activities. This 53 minutes is in excess of all separately billable procedures. MEDICAL DECISION MAKING: There is a moderate leukocytosis at 18,000, this could be consistent with infection or just her pain. There is a normal hemoglobin and platelet count. No coagulopathy. Creatinine was slightly high at 1.4, no concerning electrolyte abnormality. Alk phos mildly elevated, the remaining liver enzymes were unremarkable. There was no evidence for pancreatitis. The patient appeared to be in a euthyroid state. ECG initially showed a sinus tachycardia, there was no acute ischemia. Cardiac enzyme testing x1 was not consistent with acute cardiac injury. Bilateral hand films did not show any obvious fractures. Brain CT showed no acute bleed or mass-effect. C-spine CT showed no acute fracture. Chest and abdominal CTs were performed, there were 2 rib fractures on the right, there was no evidence for any traumatic intra-abdominal injury. Thoracic spine CT showed a subtle T4 compression fracture. Lumbar spine CT did not show any acute fracture. The patient was given IV Tylenol, she wanted nothing further for pain. She received IV Zofran and IV saline. The patient's in need of a hospital stay. She is in significant pain from her traumatic injuries. She needs some monitoring, pain control and PT/OT evaluations. She may even require rehab as an inpatient. With regard to her left chest pain for 2 weeks, the cause is unclear but, the pain does not appear to be cardiac in nature. I spoke with the patient, I talked to the child support case officer. The on-call hospitalist was consulted. Past Med/Surg History Medical History (Reviewed 02/08/21 @ 01:06 EDT by Doroteo Huerta MD) Anxiety BOOP (bronchiolitis obliterans with organizing pneumonia) 2005 CAD (coronary artery disease) Chronic back pain Chronic cough Degenerative disc disease Depression Diabetes mellitus, type 2 IDDM Dyspnea GERD (gastroesophageal reflux disease) Glaucoma NO MEDICATIONS CURRENTLY Hiatal hernia History of bronchiolitis obliterans with organizing pneumonia Hyperlipidemia Hypertension Insomnia Osteoarthritis Sleep apnea NO MACHINE CURRENTLY Surgical History H/O umbilical hernia repair History of appendectomy History of bronchoscopy History of cardiac cath [facility] History of colonoscopy History of heart artery stent X1 (2005) History of laminectomy LUMBAR AREA X2 History of laparoscopy OVARIAN CYSTECTOMY History of tonsillectomy S/P inguinal hernia repair S/P NIRALI-BSO Family History Family/Other Family history of diabetes mellitus Father Myocardial infarction CHF (congestive heart failure) Mother Alzheimer disease Brother Heart disease Social History (Reviewed 02/08/21 @ 01:07 EDT by Doroteo Huerta MD) Smoking Status: Never smoker Second Hand Exposure: No; Hx Alcohol Use: No Hx Substance Use: No Preferred Language: Armenian Communication Ability: Effective Steel Worker Required: No Beliefs That Will Affect Care: None marital status: Current Living Situation: Spouse current occupational status: retired Feels Safe at Home: Yes Assistive Devices: None Allergies Allergies Allergy/AdvReac Type Severity Reaction Status Date / Time gluten Allergy Intermediate Hives Verified 02/07/21 22:25 Home Meds Home Medications Medication Instructions Recorded Confirmed guaifenesin 600 mg tablet, 600 mg PO Q12H PRN 10/30/18 11/06/21 extended release 12 hr (Mucinex) insulin human U-100 NPH-regulr See Rx Instructions .ROUTE .COMPLEX 01/31/18 02/07/21 70-30 mix 100 unit/mL subcutaneous susp (Novolin 70/30 U-100 Insulin) omeprazole 20 mg tablet,delayed 20 mg PO QAM 01/31/18 02/07/21 release duloxetine 60 mg capsule,delayed 60 mg PO QAM 03/30/18 02/07/21 release (Cymbalta) aspirin 81 mg tablet,delayed 81 mg PO DAILY 08/14/19 02/07/21 release (Adult Low Dose Aspirin) metoprolol succinate 50 mg 25 mg PO QAM tab 02/19/20 02/07/21 tablet,extended release 24 hr alirocumab 75 mg/mL subcutaneous 75 mg SUBCUT .[id number] 02/07/21 02/07/21 pen injector (Praluent Pen) [id number] tablet 1 tab PO BID 02/07/21 02/07/21 peg 400-propylene glycol (PF) 0.4 1 drp OPHTHALMIC (EYE) QID PRN 02/07/21 02/07/21 %-0.3 % eye drops in a dropperette (Systane (PF)) vit A 1,000 unit-C 200 mg-E 60 1 tab PO BID 02/07/21 02/07/21 unit-lutein 2 mg and minerals tablet (Vision Formula (with lutein)) Previous Rx's Medication Instructions Recorded nitroglycerin 0.4 mg sublingual 0.4 mg SUBLINGUAL ONCE PRN #20 tab 03/21/20 tablet (Nitrostat) hydrochlorothiazide 12.5 mg capsule 12.5 mg PO DAILY #90 cap 02/04/21 Results & Data (ED) Vital Signs Vital Signs - 24 hr 02/07/21 20:37 02/07/21 20:38 02/07/21 20:40 Temperature 36.8 C Temperature Source Oral Pulse Rate 104 H 123 H 120 H Pulse Rate from SpO2 Sensor 122 H 121 H Pulse Rhythm Regular Pulse Strength Normal Respiratory Rate 18 29 H 19 Respiratory Effort / Characteristics Non-Labored Spontaneous Respiratory Depth Normal Respiratory Pattern Regular Blood Pressure 209/96 H Blood Pressure Mean 133 Blood Pressure Position Sitting Pulse Oximetry 96 96 94 Oxygen Delivery Method Room Air Sepsis Recent Fever Within 48 Hours No Sepsis New/Unexplained Change in Mental Status N/A Sepsis Action Taken by Nursing No Action Required 02/07/21 20:50 02/07/21 20:54 02/07/21 21:00 Temperature Temperature Source Pulse Rate 114 H 116 H Pulse Rate from SpO2 Sensor 116 H 116 H Pulse Rhythm Pulse Strength Respiratory Rate 14 26 H Respiratory Effort / Characteristics Respiratory Depth Respiratory Pattern Blood Pressure 109/77 Blood Pressure Mean 87 Blood Pressure Position Pulse Oximetry 96 95 Oxygen Delivery Method Room Air Sepsis Recent Fever Within 48 Hours Sepsis New/Unexplained Change in Mental Status Sepsis Action Taken by Nursing 02/07/21 21:10 02/07/21 21:20 02/07/21 21:30 Temperature Temperature Source Pulse Rate 118 H 105 H 96 H Pulse Rate from SpO2 Sensor 118 H 104 H 96 H Pulse Rhythm Pulse Strength Respiratory Rate 23 17 20 Respiratory Effort / Characteristics Respiratory Depth Respiratory Pattern Blood Pressure 129/60 Blood Pressure Mean 83 Blood Pressure Position Pulse Oximetry 94 94 95 Oxygen Delivery Method Sepsis Recent Fever Within 48 Hours Sepsis New/Unexplained Change in Mental Status Sepsis Action Taken by Nursing 02/07/21 21:40 02/07/21 22:03 Temperature Temperature Source Pulse Rate 98 H 101 H Pulse Rate from SpO2 Sensor 98 H 101 H Pulse Rhythm Pulse Strength Respiratory Rate 19 19 Respiratory Effort / Characteristics Respiratory Depth Respiratory Pattern Blood Pressure Blood Pressure Mean Blood Pressure Position Pulse Oximetry 95 91 Oxygen Delivery Method Sepsis Recent Fever Within 48 Hours Sepsis New/Unexplained Change in Mental Status Sepsis Action Taken by Residential Medications Current Medication List: was personally reviewed by me Laboratory Data Attestation: I reviewed the patient's lab results. Result diagrams: 02/07/21 21:03 02/07/21 21:03 Lab Results 02/07/21 02/07/21 02/07/21 Range/Units 21:03 21:03 21:03 WBC 18.49 H (4.8-10.8) K/uL RBC 4.69 (4.2-5.4) M/uL Hgb 12.5 (12.0-16.0) g/dL Hct 41.0 (37-47) % MCV 87.4 (80-100) fL MCH 26.7 (25-34) pg MCHC 30.5 L (32-36) g/dL RDW Std Deviation 53.4 H (36.4-46.3) fL RDW Coeff of Massiel 16.7 H (11.5-14.5) % Plt Count 291 (130-400) K/uL MPV 8.7 (7.4-10.4) fL Immature Gran % (Auto) 1.2 % Neut % (Auto) 80.8 % Lymph % (Auto) 10.6 % [place] % (Auto) 6.2 % Eos % (Auto) 1.0 % Baso % (Auto) 0.2 % Neut # (Auto) 14.93 H (1.4-6.5) K/uL Lymph # (Auto) 1.96 (1.2-3.4) K/uL [place] # (Auto) 1.14 H (0.11-0.59) K/uL Eos # (Auto) 0.19 (0-0.5) K/uL Baso # (Auto) 0.04 (0-0.2) K/uL Immature Gran # (Auto) 0.23 H (0.00-0.02) K/uL PT 10.1 (9.0-12.0) Seconds INR 1.0 (0.9-1.1) APTT 24.2 (21.0-31.0) Seconds PTT Ratio 0.9 Sodium 140 (136-145) mmol/L Potassium 4.4 (3.5-5.1) mmol/L Chloride 108 H (98-107) mmol/L Carbon Dioxide 24 (21-32) mmol/L Anion Gap 8.0 (3-11) BUN 17 (7-18) mg/dl Creatinine 1.40 H (0.6-1.2) mg/dl Est Cr Clr Drug Dosing 28.4 ml/min Est GFR ( Amer) 41.3 ml/min Est GFR (Non-Af Amer) 35.6 ml/min BUN/Creatinine Ratio 12.2 (10-20) Glucose 193 H (70-99) mg/dl Calcium 8.1 L (8.5-10.1) mg/dl Magnesium 2.1 (1.8-2.4) mg/dl Total Bilirubin 0.4 (0.2-1) mg/dl AST 25 (15-37) U/L ALT 20 (12-78) U/L Alkaline Phosphatase 131 H (45-117) U/L Troponin I < 0.015 (0-0.045) ng/ml Total Protein 6.7 (6.4-8.2) gm/dl Albumin 2.7 L (3.4-5.0) gm/dl Globulin 4.0 (2.5-4.0) gm/dl Albumin/Globulin Ratio 0.7 L (0.9-2) Lipase 211 (73-393) U/L TSH 3.750 (0.300-4.500) uIu/ml Administered Medications Discontinued Medications Acetaminophen (Acetaminophen 1000 Mg/100 Ml Iv) 1,000 mg IV NOW STA Stop: 02/07/21 20:54 Last Admin: 02/07/21 21:11 Dose: 1,000 mg Documented by: [id number] Sodium Chloride (Nss) 500 mls @ 999 mls/hr IV .Q31M STA Stop: 02/07/21 21:23 Last Infusion: 02/07/21 22:07 Dose: 0 mls/hr Documented by: [id number] Admin: 02/07/21 21:12 Dose: 999 mls/hr Documented by: [id number] Sodium Chloride (Nss 1000ml) 500 mls @ 999 mls/hr IV .Q31M ONE Stop: 02/07/21 23:01 Last Infusion: 02/07/21 23:26 Dose: 0 mls/hr Documented by: [id number] Admin: 02/07/21 22:47 Dose: 999 mls/hr Documented by: [id number] Ioversol (Optiray 320 100ml) 95 ml IV ONCE ONE Stop: 02/07/21 22:11 Last Admin: 02/07/21 22:10 Dose: 95 ml Documented by: [id number] Ondansetron HCl (Ondansetron Inj 2 Mg/Ml 2 Ml Vial) 4 mg IV NOW STA Stop: 02/07/21 20:54 Last Admin: 02/07/21 21:12 Dose: 4 mg Documented by: [id number] Imaging Data Attestation: I personally reviewed and interpreted this imaging study as follows: My Impression: Films of both the right and left hand were performed: There was arthritis to both hands and to the joints, I did not see any obvious fracture, no bony dislocations. Radiologist's Impression: Chest CT with IV contrast: There is a mild T4 compression fracture without retropulsion. There are fractures of the right sixth and seventh ribs. No pneumothorax or pulmonary contusion. Some chronic nonacute findings were seen. C-spine CT without contrast: No acute fracture. Chronic degenerative anterolisthesis seen. Brain CT without contrast: No intracranial hemorrhage, mass-effect or acute cortical stroke. No skull fracture. Abdominal and pelvis CT with IV contrast: No acute traumatic findings within the abdomen or pelvis. Pelvis does not show any fracture. There is a hematoma that is 8 x 6 x 3.8 in the left buttock. Lumbar spine CT with IV contrast: No acute fracture. T-spine CT with IV contrast: There is a fracture of the T4 vertebral body de scribed as a mild compression fracture with some cortical disruption. No retropulsion. Head Trauma GCS Score: 15 Discharge Plan Visit Data Chief Complaint: Chest Pain Stated Complaint: FALL ED Provider: Doroteo Huerta Discharge Problem: Precordial chest pain, Right rib fracture, Compression fracture of T4 vertebra, Traumatic hematoma of buttock, Fall down stairs, Contusion of left hand, Contusion of right hand Patient Disposition: Admitted As Inpatient Condition: Fair Forms Stand Alone Forms: [facility] Prescriptions Prescriptions: No Action hydrochlorothiazide 12.5 mg capsule 12.5 mg PO DAILY Qty: 90 RF: 3 aspirin [Adult Low Dose Aspirin] 81 mg tablet,delayed release (DR/EC) 81 mg PO DAILY RF: 0 nitroglycerin [Nitrostat] 0.4 mg tablet, sublingual 0.4 mg Sublingual ONCE PRN (Reason: Chest Pain) Qty: 20 RF: 5 Novolin 70/30 U-100 Insulin 100 unit/mL (70-30) Suspension See Rx Instructions .ROUTE .COMPLEX RF: 0 omeprazole 20 mg Tablet,Delayed Release (Dr/Ec) 20 mg PO QAM RF: 0 guaifenesin [Mucinex] 600 mg Tablet Extended Release 12hr 600 mg PO Q12H PRN (Reason: Congestion) RF: 0 metoprolol succinate 50 mg tablet extended release 24 hr 25 mg PO QAM RF: 0 duloxetine [Cymbalta] 60 mg Capsule,Delayed Release(Dr/Ec) 60 mg PO QAM RF: 0 Liverite Tablet 1 tab PO BID RF: 0 Systane (PF) 0.4-0.3 % Dropperette 1 drp OPHTHALMIC (EYE) QID PRN (Reason: Dry Eyes) RF: 0 Vision Formula (with lutein) 1,000 unit-200 mg-60 unit-2 mg Tablet 1 tab PO BID RF: 0 Praluent Pen 75 mg/mL pen injector 75 mg SUBCUT .[id number] RF: 0 Referrals Referrals: Александр Harley MD [Primary Care Provider] -
[2021-02-07 21:10] LABS: Basophils # (auto) 0.04 K/uL (0-0.2); Basophils % (auto) 0.2 %; Eosinophils # (auto) 0.19 K/uL (0-0.5); Hemoglobin 12.5 g/dL (12.0-16.0); Immature Granulocytes # (auto) 0.23 K/uL (0.00-0.02); Immature Granulocytes % (auto) 1.2 %; Lymphocytes # (auto) 1.96 K/uL (1.2-3.4); Lymphocytes % (auto) 10.6 %; Mean Corpuscular Hemoglobin 26.7 pg (25-34); Mean Corpuscular Hgb Conc 30.5 g/dL (32-36); Mean Corpuscular Volume 87.4 fL (80-100); Mean Platelet Volume 8.7 fL (7.4-10.4); Monocytes # (auto) 1.14 K/uL (0.11-0.59); Monocytes % (auto) 6.2 %; Neutrophils # (auto) 14.93 K/uL (1.4-6.5); Neutrophils % (auto) 80.8 %; Platelet Count 291 K/uL (130-400); RDW Coefficient of Variation 16.7 % (11.5-14.5); RDW Standard Deviation 53.4 fL (36.4-46.3); Red Blood Count 4.69 M/uL (4.2-5.4); White Blood Count 18.49 K/uL (4.8-10.8)
[2021-02-07 21:21] LABS: Partial Thromboplastin Ratio 0.9; Partial Thromboplastin Time 24.2 Seconds (21.0-31.0); Prothrombin Time 10.1 Seconds (9.0-12.0)
[2021-02-07 21:30] LABS: Alanine Aminotransferase 20 U/L (12-78); Albumin Level 2.7 gm/dl (3.4-5.0); Aspartate Aminotransferase 25 U/L (15-37); BUN Creatinine Ratio 12.2 (10-20); Blood Urea Nitrogen 17 mg/dl (7-18); Calcium 8.1 mg/dl (8.5-10.1); Carbon Dioxide 24 mmol/L (21-32); Chloride 108 mmol/L (98-107); Creatinine Clr Calc Pharmacy 28.4 ml/min; Est GFR (African American) 41.3 ml/min; Est GFR (Non-African American) 35.6 ml/min; Glucose 193 mg/dl (70-99); Lipase 211 U/L (73-393); Magnesium 2.1 mg/dl (1.8-2.4); Potassium 4.4 mmol/L (3.5-5.1); Sodium 140 mmol/L (136-145)
[2021-02-07 21:40] LABS: Albumin Globulin Ratio 0.7 (0.9-2); Alkaline Phosphatase 131 U/L (45-117); Bilirubin,Total 0.4 mg/dl (0.2-1); Total Protein 6.7 gm/dl (6.4-8.2); Troponin I < 0.015 ng/ml (0-0.045)
[2021-02-07] MEDS ORDERED: OPTIRAY 320 100ml IV ONE (22:10)
[2021-02-07] MEDS ORDERED: SODIUM CHLORIDE 0.9% 1000ML 500 ML IV ONE (22:31)
--- NOTE | 2021-02-08 00:33 | History & Physical Report ---
Date of Service February 08, 2021 Assessment & Plan (1) Fall: Plan: 80-year-old female presenting after a fall down 18 carpeted steps that occurred earlier this evening. Patient denies significant head trauma or loss of consciousness. Trauma work-up reveals large left buttock hematoma as well as acute rib fractures of ribs 6 and 7 on the right and acute T4 compression fracture. CT chest, abdomen and pelvis otherwise unremarkable. Patient not on any blood thinners but is on daily aspirin Presently pain is well controlled Admit to medical with telemetry monitoring Neurochecks every 4 hours with Tracey Coma Scale Pain control with Tylenol, oxycodone and morphine as needed Colace and MiraLAX as needed for constipation Zofran as needed for nausea PT/OT evaluation appreciated -Patient with large left buttock hematoma. Will monitor. Repeat CBC in a.m. (2) Diabetes mellitus, type 2: Plan: Blood sugar mildly elevated at 193 currently. Patient is on Novolin 70/30 and reports taking 40 units at night and 50 units in the morning. We will hold Novolin 70/30 Lantus 10 units twice daily Insulin sliding scale Goal blood sugar 100-1 40 (3) Hypertension: Plan: Blood pressure stable at present Continue metoprolol 25 mg p.o. every morning Continue HCTZ 12.5 mg p.o. daily Continue to monitor (4) GERD (gastroesophageal reflux disease): Plan: Chronic. Stable on omeprazole Pepcid 20 mg p.o. every morning while inpatient (5) CAD (coronary artery disease): Plan: Chronic. We will hold aspirin for now (6) Sleep apnea: Plan: Noted. Patient presently not on CPAP or oxygen (7) Left-sided chest pain: Plan: Patient originally presented with left-sided discomfort which seems to be more musculoskeletal in origin. Pain has been ongoing x2 weeks. Troponin = negative. EKG with no acute ischemic changes Repeat troponin in a.m. Telemetry monitoring Plan: FENLR at 125 mL/h x 2 L, electrolytes with in normal limits. Will repeat chemistry in a.m., consistent carb/heart healthy diet as tolerated ProphylaxisSCDs to bilateral lower extremities [place] per discussion with patient Dispoadmit to medical telemetry History of Present Illness Chief Complaint: fall Primary Care Provider: Александр Harley MD Lisa Brown is a pleasant 80yo female presenting after a fall down the stairs in her home. Patient has been experiencing some left sided abdominal discomfort for several weeks. She was planning to come to the ER for evaluation of this discomfort. She reports going upstairs to clean herself up before coming to the ER. She misstepped and fell down [address]. She denies syncope or loss of consciousness. was at home during the event and is at bedside today. He states that he heart three distinct thumps then a crash on the floor. He ran out and found the patient laying face down at that bottom of the stairs. She was responsive although slightly confused for approximately 5-8 minutes. She was able to move everything but had some difficulty getting up off the floor. 911 was called and EMS transported the patient to [facility] in a hard cervical collar. Patient is presently complaining of pain on the dorsum of her hands as well as pain on the left buttock, lumbar spine and right ribs. She denies headache, diplopia, chest pain, palpitations, SOB. She denies abdominal pain, nausea, vomiting, diarrhea or constipation. Denies neck pain, numbness/tingling or w eakness. The original left sided discomfort for which the patient was coming to have addressed has been ongoing x 2 weeks. It is located in the left chest starting at her breastbone with bandlike radiation into the back. It seems to be worst at night. It is associated with certain movements but does not appear to be exertional in nature. She denies SOB, palpitations, diaphoresis. She is not currently having this discomfort. Patient is vaccinated against Covid and had her booster shot last week. ER Course: Tylenol, Zofran, NSS x 1L Allergies Allergy/AdvReac Type Severity Reaction Status Date / Time gluten Allergy Intermediate Hives Verified 02/07/21 22:25 Home Medications Medication Instructions Recorded Confirmed Type guaifenesin 600 mg tablet, 600 mg PO Q12H PRN 01/31/18 02/07/21 History extended release 12 hr (Mucinex) insulin human U-100 NPH-regulr See Rx Instructions .ROUTE .COMPLEX 01/31/18 02/07/21 History 70-30 mix 100 unit/mL subcutaneous susp (Novolin 70/30 U-100 Insulin) omeprazole 20 mg tablet,delayed 20 mg PO QAM 01/31/18 02/07/21 History release duloxetine 60 mg capsule,delayed 60 mg PO QAM 03/30/18 02/07/21 History release (Cymbalta) aspirin 81 mg tablet,delayed 81 mg PO DAILY 08/14/19 02/07/21 History release (Adult Low Dose Aspirin) metoprolol succinate 50 mg 25 mg PO QAM tab 02/19/20 02/07/21 History tablet,extended release 24 hr nitroglycerin 0.4 mg sublingual 0.4 mg SUBLINGUAL ONCE PRN #20 tab 03/21/20 02/07/21 Rx tablet (Nitrostat) hydrochlorothiazide 12.5 mg capsule 12.5 mg PO DAILY #90 cap 02/04/21 02/07/21 Rx alirocumab 75 mg/mL subcutaneous 75 mg SUBCUT .[id number] 02/07/21 02/07/21 History pen injector (Praluent Pen) [id number] tablet 1 tab PO BID 02/07/21 02/07/21 History peg 400-propylene glycol (PF) 0.4 1 drp OPHTHALMIC (EYE) QID PRN 02/07/21 02/07/21 History %-0.3 % eye drops in a dropperette (Systane (PF)) vit A 1,000 unit-C 200 mg-E 60 1 tab PO BID 02/07/21 02/07/21 History unit-lutein 2 mg and minerals tablet (Vision Formula (with lutein)) Past Med/Surg History Medical History Anxiety BOOP (bronchiolitis obliterans with organizing pneumonia) 2005 CAD (coronary artery disease) Chronic back pain Chronic cough Degenerative disc disease Depression Diabetes mellitus, type 2 IDDM Dyspnea GERD (gastroesophageal reflux disease) Glaucoma NO MEDICATIONS CURRENTLY Hiatal hernia History of bronchiolitis obliterans with organizing pneumonia Hyperlipidemia Hypertension Insomnia Osteoarthritis Sleep apnea NO MACHINE CURRENTLY Surgical History H/O umbilical hernia repair History of appendectomy History of bronchoscopy History of cardiac cath [facility] History of colonoscopy History of heart artery stent X1 (2005) History of laminectomy LUMBAR AREA X2 History of laparoscopy OVARIAN CYSTECTOMY History of tonsillectomy S/P inguinal hernia repair S/P NIRALI-BSO Family History Family/Other Family history of diabetes mellitus Father Myocardial infarction CHF (congestive heart failure) Mother Alzheimer disease Brother Heart disease Social History Smoking Status: Never smoker Second Hand Exposure: No; Hx Alcohol Use: No Hx Substance Use: No Preferred Language: Gibraltarian Communication Ability: Effective Site Superintendent Required: No Beliefs That Will Affect Care: None marital status: Current Living Situation: Spouse current occupational status: retired Feels Safe at Home: Yes Assistive Devices: None Review of Systems Review of Systems: All systems reviewed & are unremarkable except as noted in HPI & below Physical Exam Physical Exam: General: patient resting comfortably, NAD, non-toxic in appearance, AA&O x 4 Skin: warm, dry, intact, bruising on dorsum of hands bilaterally, large bruise on left buttock HEENT: NC/AT, facial bones stable, no mastoid tenderness, bruising or orbital ecchymosis, PERRL, EOMI, anicteric sclera, conjunctiva without injection, external ear normal to inspection and nontender, TM visualized with no hemotympanum, nares patent, moist mucus membranes, dentition intact, no oropharyngeal lesions, neck supple, no cervical tenderness, trachea midline, no LAD, no thyromegaly, no JVD Heart: +S1/S2, regular, tachycardic, no m/r/g Lungs: equal air entry bilaterally, no rales/rhonchi/wheezes Abd: +BS, soft, NT/ND, no masses/organomegaly/ascites, no abdominal bruising Ext: warm, 2+ pulses in UE/LE bilaterally, no clubbing/cyanosis or edema, large hematoma left buttock, tender to palpation Neuro: nonfocal, patient AA&O x 4, speech intact, no facial droop, moving all extremities on command with equal strength 5/5 Results & Data Results & Data ([facility]) Vital Signs (Past 12 Hours) Vital Signs Temp Pulse Resp BP Pulse Ox 02/07/21 22:03 101 H 19 91 02/07/21 21:40 98 H 19 95 02/07/21 21:30 96 H 20 129/60 95 02/07/21 21:20 105 H 17 94 02/07/21 21:10 118 H 23 94 02/07/21 21:00 116 H 26 H 109/77 95 02/07/21 20:50 114 H 14 96 02/07/21 20:40 120 H 19 94 02/07/21 20:38 123 H 29 H 96 02/07/21 20:37 36.8 C 104 H 18 209/96 H 96 Laboratory Results Laboratory Results WBC 18.49 K/uL (4.8-10.8) H 02/07/21 21:03 RBC 4.69 M/uL (4.2-5.4) 02/07/21 21:03 Hgb 12.5 g/dL (12.0-16.0) 02/07/21 21:03 Hct 41.0 % (37-47) 02/07/21 21:03 MCV 87.4 fL (80-100) 02/07/21 21:03 MCH 26.7 pg (25-34) 02/07/21 21:03 MCHC 30.5 g/dL (32-36) L 02/07/21 21:03 RDW Std Deviation 53.4 fL (36.4-46.3) H 02/07/21 21:03 RDW Coeff of Massiel 16.7 % (11.5-14.5) H 02/07/21 21:03 Plt Count 291 K/uL (130-400) 02/07/21 21:03 MPV 8.7 fL (7.4-10.4) 02/07/21 21:03 Immature Gran % (Auto) 1.2 % 02/07/21 21:03 Neut % (Auto) 80.8 % 02/07/21 21:03 Lymph % (Auto) 10.6 % 02/07/21 21:03 [place] % (Auto) 6.2 % 02/07/21 21:03 Eos % (Auto) 1.0 % 02/07/21 21:03 Baso % (Auto) 0.2 % 02/07/21 21:03 Neut # (Auto) 14.93 K/uL (1.4-6.5) H 02/07/21 21:03 Lymph # (Auto) 1.96 K/uL (1.2-3.4) 02/07/21 21:03 [place] # (Auto) 1.14 K/uL (0.11-0.59) H 02/07/21 21:03 Eos # (Auto) 0.19 K/uL (0-0.5) 02/07/21 21:03 Baso # (Auto) 0.04 K/uL (0-0.2) 02/07/21 21:03 Immature Gran # (Auto) 0.23 K/uL (0.00-0.02) H 02/07/21 21:03 PT 10.1 Seconds (9.0-12.0) 02/07/21 21:03 INR 1.0 (0.9-1.1) 02/07/21 21:03 APTT 24.2 Seconds (21.0-31.0) 02/07/21 21:03 PTT Ratio 0.9 02/07/21 21:03 Sodium 140 mmol/L (136-145) 02/07/21 21:03 Potassium 4.4 mmol/L (3.5-5.1) 02/07/21 21:03 Chloride 108 mmol/L (98-107) H 02/07/21 21:03 Carbon Dioxide 24 mmol/L (21-32) 02/07/21 21:03 Anion Gap 8.0 (3-11) 02/07/21 21:03 BUN 17 mg/dl (7-18) 02/07/21 21:03 Creatinine 1.40 mg/dl (0.6-1.2) H 02/07/21 21:03 Est Cr Clr Drug Dosing 28.4 ml/min 02/07/21 21:03 Est GFR ( Amer) 41.3 ml/min 02/07/21 21:03 Est GFR (Non-Af Amer) 35.6 ml/min 02/07/21 21:03 BUN/Creatinine Ratio 12.2 (10-20) 02/07/21 21: Glucose 193 mg/dl (70-99) H 02/07/21 21:03 Calcium 8.1 mg/dl (8.5-10.1) L 02/07/21 21:03 Magnesium 2.1 mg/dl (1.8-2.4) 02/07/21 21:03 Total Bilirubin 0.4 mg/dl (0.2-1) 02/07/21 21:03 AST 25 U/L (15-37) 02/07/21 21:03 ALT 20 U/L (12-78) 02/07/21 21:03 Alkaline Phosphatase 131 U/L (45-117) H 02/07/21 21:03 Troponin I < 0.015 ng/ml (0-0.045) 02/07/21 21:03 Total Protein 6.7 gm/dl (6.4-8.2) 02/07/21 21:03 Albumin 2.7 gm/dl (3.4-5.0) L 02/07/21 21: Globulin 4.0 gm/dl (2.5-4.0) 02/07/21 21: Albumin/Globulin Ratio 0.7 (0.9-2) L 02/07/21 21: Lipase 211 U/L (73-393) 02/07/21 21: TSH 3.750 uIu/ml (0.300-4.500) 02/07/21 21:[address] thoracic spine: Per stat readdiffuse osteoporosis. Multilevel degenerative disease. Normal alignment. Mild compression fracture of T4 with cortical disruption likely acute. Normal retropulsion or extension to the pedicles. No other sites suspicious for fracture seen CT lumbar spine: Per stat read readdiffuse osteoporosis normal alignment. Multilevel vacuum phenomenon along with degenerative disease. No acute fracture. No spondylolisthesis or pars defect CT head: Per stat readno intracranial hemorrhage, mass-effect or edema. No evidence of acute cortical stroke. Periventricular small vessel ischemic changes. Mild generalized brain atrophy. Visualized sinuses are clear. Minimal fluid within the right mastoid. Mild scalp swelling overlying the left frontal bone near the vertex. No skull fracture. CT chest with contrast. Mild bilateral lower lobe atelectasis, remainder of the lung bases are clear. Mild atherosclerotic disease of the aorta with no aneurysm. Normal cardiac size with coronary artery calcifications. No pleural effusions or pneumothorax. Upper abdomen reveals mild fatty infiltration otherwise normal liver. Gallbladder and biliary system. Normal pancreas, perisplenic melanomata, likely related to previous granulomatous infection. Small cyst in the right kidney not included in the [id number] entirely. Otherwise unremarkable visualized upper kidneys. Degenerative disease of the spine. Diffuse osteopenia. Mild compression fracture of T4 with mild step-off, possibly acute. No extension of the pedicles or retropulsion. Acute fracture involving the anterior arches of the right sixth and seventh rib. CT abdomen and pelvis: Per stat readmild bilateral lobe atelectasis. Normal cardiac size. Mild diffuse fatty liver. Normal gallbladder and biliary system. Multiple splenic calcifications likely related previous granulomatous infection. Normal bilateral adrenal glands. Unremarkable stomach. Right-sided renal cyst measuring 2.3 cm. Small cyst within the left mid upper renal pole measuring 8.5 mm. Otherwise normal bilateral kidneys. Atherosclerotic disease of aorta with no aneurysm. The small bowel and colon are unremarkable. Appendix not seen consistent with known prior history of appendectomy. Diffuse osteoporosis with multilevel degenerative disease of the spine and vacuum phenomenon. Status post hysterectomy with unremarkable urinary bladder. Bony pelvis is intact with no pelvic bone fracture. There is increased stranding involving the bilateral buttock region with high soft tissue density of the left atrial dimension of 8 x 6 x 3 point centimeters most compatible with left buttock hematoma. CT cervical spine: Per stat readno acute fracture. Diffuse osteoporosis with multilevel disc degenerative disease, more severe at C6-C7. Minimal anterolisthesis of C5 on C6 (2 mm), likely degenerative related. This is stable since MRI dated 02/03/2012 Code Status & VTE Plan VTE Prophylaxis Plan VTE Prophylaxis will be ordered: Yes PG Care Time/CCT Total # of Minutes Spent Total Time Spent with Patient: Total time spent is greater than 50% in coordination of care (as documented) at patient's floor/unit and/or counseling patient: Coding Level of Care Code 48725 Initial Inpt Care Lvl 2 Diagnoses Sleep apnea G47.30 Hypertension I10 GERD (gastroesophageal reflux disease) K21.9 Diabetes mellitus, type 2 E11.9 CAD (coronary artery disease) I25.10 Fall W19.XXXA Left-sided chest pain R07.9
[2021-02-08] MEDS ORDERED: MoRPHine SULFATE 2 MG/ML CARP IV STA (01:04)
[2021-02-08] MEDS ORDERED: GLUCOSE 10 TABS/TUBE PO PRN (02:05)
[2021-02-08] MEDS ORDERED: GLUCAGON FOR INJ 1 MG VIAL SQ PRN (02:05)
[2021-02-08] MEDS ORDERED: GLUCOSE 40% GEL 15 GM TUBE PO PRN (02:05)
[2021-02-08] MEDS ORDERED: POLYETHYLENE (MIRALAX) 17 GM PACK PO PRN (02:05)
[2021-02-08] MEDS ORDERED: ONDANSETRON INJ 2 MG/ML 2 ML VIAL IV PRN (02:05)
[2021-02-08] MEDS ORDERED: DOCUSATE SODIUM 100 MG CAP PO PRN (02:05)
[2021-02-08] MEDS ORDERED: oxyCODONE HCL IR 5 MG TAB (IMMEDIATE RELEASE) PO PRN ×2 (02:05)
[2021-02-08] MEDS ORDERED: CARBOHYDRATES FOR HYPOGLYCEMIA PO PRN (02:05)
[2021-02-08] MEDS ORDERED: DEXTROSE 50% 50 ML SYRINGE IV PRN (02:05)
[2021-02-08] MEDS: LACTATED RINGER'S 1,000 ML IV SCH ×2 (02:25→10:28)
[2021-02-08] MEDS: INSULIN GLARGINE SOLOSTAR 100 UNITS/ML 3 ML PEN SC SCH ×3 (02:44→21:25)
[2021-02-08] MEDS: ACETAMINOPHEN 325 MG TAB PO PRN ×2 (03:35→13:01)
[2021-02-08] MEDS: LIDOCAINE 5% 1 PATCH TD SCH ×2 (05:02)
--- NOTE | 2021-02-08 07:00 | CT Scan Report ---
CT thoracic spine w con, CT lumbar spine w con HISTORY: 80 years-old Female fall down stairs acute mid and low back pain status post fall COMPARISON: CT lumbar spine 05/04/2019, MRI thoracic spine 05/08/2018 TECHNIQUE: Multiple axial CT images of the thoracic and lumbar spine were obtained without the use of IV contrast. A dose lowering technique was used consistent with the principals of ALARA. FINDINGS: CT THORACIC: Mild superior endplate compression deformity of less than 20% involving the T4 vertebral body is new from prior. No retropulsion or significant paravertebral edema. Minimal superior endplate compression at T2 without retropulsion also appears new from comparison and is likely chronic. Severe interverte bral disc space narrowing at C6 or C7. Unchanged mild chronic T11 compression deformity. T12 vertebra l body hemangioma. Mild to moderate multilevel intervertebral disc space narrowing. Moderate to sever e at T11-T12 and T12-L1 disc space narrowing. Mostly mild multilevel spondylitic spurring with modera te to severe facet arthrosis. The intrathoracic findings are dictated separately on the CT chest study. CT LUMBAR: Demineralized appearance of the bones. Vacuum disc phenomena is present with multilevel intervertebra l disc space narrowing, severe at T12-L1 and L5-S1. Moderate multilevel spondylitic spurring with sev ere facet arthrosis. Large L4-L5 posterior disc osteophyte complex. No acute fracture or subluxation identified. No spondylolysis or spondylolisthesis. Evaluation of the central canal and neuroforamina is better assessed by MR technique. Multilevel neural foraminal narrowing. L4-L5 central canal stenos is redemonstrated. The intra-abdominal and intrapelvic findings are dictated separately. IMPRESSION: 1. Mild less than 20% superior endplate compression at T4 is new from 05/08/2018 and is likely acute or subacute. No retropulsion. 2. Minimal superior endplate compression at T2 is also new from the 2019 comparison however is likely chronic. 3. Chronic T11 compression deformity. 4. No acute fracture or subluxation of the lumbar spine. ACT 112: Negative or not required by law. The above report was generated using voice recognition software. It may contain grammatical, syntax o r spelling errors. Electronically signed by: Elia Yo M.D. 02/08/2021 6:59 AM
--- NOTE | 2021-02-08 07:21 | CT Scan Report ---
CHEST CT WITH CONTRAST; CT ABDOMEN AND PELVIS WITH IV CONTRAST ONLY HISTORY: Acute chest and abdominal trauma status post fall fall down stairs TECHNIQUE: Multiaxial CT images of the chest were performed following the IV administration of 95 cc of Optiray. A dose lowering technique was utilized adhering to the principles of ALARA. COMPARISON: CT lumbar spine 05/04/2019, MRI thoracic spine 05/08/2018, CT abdomen and pelvis 03/30/2018 , chest CT 09/23/2014 FINDINGS: CT CHEST: Unremarkable thyroid. No adenopathy. Calcified right hilar lymph nodes. Mild cardiomegaly with extens tello coronary artery calcifications. Atherosclerosis of the aorta without aneurysm. Medial course of t he common carotid arteries. Unremarkable pulmonary artery. No pneumothorax, pleural effusion, airspac e consolidation or overt pulmonary edema. Calcified granulomata of the right middle lobe. Subsegmenta l bibasilar atelectasis/scarring. 5 mm solid nodule the basal right lower lobe on image 137, new from comparison. 6 mm solid nodule of the left upper lobe on image 100 is also new. This abuts the adjace nt left upper lobe bronchus. Central airways are patent. Mild mid to distal esophageal wall thickenin g with small hiatal hernia. Unremarkable soft tissues. Mild superior endplate compression deformity a t T4 without retropulsion. Minimal T2 compression deformity with chronic T11 compression fracture. Mi ld cortical irregularity involves the anterior aspects of the right third through fifth, eighth and n inth ribs compatible with acute nondisplaced fractures. Acute mildly displaced fractures of the anter ior right sixth and seventh ribs. Minimal cortical irregularity of the anterior left seventh and eigh th ribs is new from comparison CT ABDOMEN/PELVIS: No pneumatosis or pneumoperitoneum. Calcified granuloma of the spleen. Unremarkable pancreas, gallbla dder, adrenal glands and liver. Patent portal vein. Bilateral renal cysts measure up to 2.3 cm on the right. There is no hydronephrosis. Unremarkable urinary bladder. Hysterectomy. Atherosclerosis of th e aorta without aneurysm. No adenopathy. Wall thickening the distal esophagus with small hiatal herni a. No bowel obstruction or bowel wall thickening. Appendectomy. Tiny fat filled periumbilical hernia. Subcutaneous bilateral gluteal contusions with hematomas measuring up to 5.9 cm on the right and 9.3 cm the left. There are areas of associated active extravasation, left greater than right. No intramu scular hematoma. No additional acute fracture identified. IMPRESSION: 1. Mild superior endplate compression deformity at T4 is likely acute or subacute. No retropulsion. 2. Numerous acute right-sided rib fractures with mild displacement of the anterior right sixth and se venth ribs. Equivocal acute nondisplaced fractures of the anterior left seventh and eighth ribs. No p neumothorax. 3. Prior granulomatous disease. 5 mm right lower lobe and 6 mm left upper lobe solid pulmonary nodule s are new from the 2015 comparison. Follow-up recommended. 4. Left greater than right subcutaneous acute gluteal hematomas with areas of active extravasation. T his finding was called/faxed to the floor at time of dictation. 5. No evidence of acute solid organ injury. 6. Distal esophageal wall thickening with small hiatal hernia. 7. Additional findings as above. Please refer to below summary of Fleischner criteria recommendations for follow-up of incidental CT n odules (Leena Randall, Guidelines for management of small pulmonary nodules detected on CT scans: A sta tement from the Fleischner Society, Radiology 237: [id number].) SOLID NODULES Multiple nodules size: <6 mm * Low risk patients: no routine follow-up * high risk patients: optional CT at 12 months Multiple nodules size: 6-8 mm * Low risk patients: follow-up at 3-6 months, then consider further follow-up at 18-24 months * high risk patients: follow-up at 3-6 months, then at 18-24 months if no change Note: newly detected indeterminate nodule in persons 35 years of age or older. * Low risk patients: minimal or absent history of smoking and/or other known risk factors * high risk patients: history of smoking or of other known risk factors (e.g. first degree relative with lung cancer, or exposure to asbestos, radon, uranium) * if a nodule up to 8 mm is partly solid or is ground glass further follow-up is required after 24 m onths to exclude possible slow growing adenocarcinoma (MICHAEL) ACT 112: Negative or not required by law. Electronically signed by: Elia Yo M.D. 02/08/2021 7:19 AM
[2021-02-08] MEDS: METOPROLOL SUCC 25MG EXT REL TAB PO SCH (08:13)
[2021-02-08] MEDS: DULoxetine HCL 60 MG CAP PO SCH (08:14)
[2021-02-08] MEDS: FAMOTIDINE 20 MG TAB PO SCH (08:14)
[2021-02-08] MEDS: hydroCHLOROthiazide 25 MG TAB PO SCH (08:14)
[2021-02-08] MEDS: INSULIN ASPART 100 UNITS/ML 3 ML PEN SC SCH ×4 (08:16→21:25)
--- NOTE | 2021-02-08 08:21 | CT Scan Report ---
CT OF THE HEAD WITHOUT CONTRAST CLINICAL HISTORY: fall down stairs COMPARISON STUDY: Head CT December 22, 2018. TECHNIQUE: Helical axial images of the head were obtained without IV contrast. Automated exposure con trol was utilized for the study. A dose lowering technique was utilized adhering to the principles o f ALARA. FINDINGS: No acute intracranial hemorrhage, midline shift or mass effect is present. Calcification wi thin the right cerebellar hemisphere is unchanged. This is benign. White matter hypodensities are unc hanged and suggest small vessel disease. The ventricular system is unremarkable. The basal cisterns a re patent. No extra-axial collections are present. There are no findings to suggest acute dural sinus thrombosis or acute territorial infarct. No significant calvarial abnormalities are present. Visuali zed portions of the sinuses and mastoid air cells are clear. Small left frontal scalp contusion is pr esent. IMPRESSION: 1. No acute intracranial findings. 2. Small left frontal scalp contusion. No calvarial fracture. ACT 112: Negative or not required by law. Electronically signed by: Ashvin Hoang M.D. 02/08/2021 8:20 AM
--- NOTE | 2021-02-08 08:25 | CT Scan Report ---
CT cervical spine wo con CT DOSE: 3218.13 mGy.cm CLINICAL HISTORY: 80 years-old Female with fall down stairs. Acute head and neck injury status post fall COMPARISON: CTA head and thoracic spine studies of same day, CTA neck 12/22/2018 TECHNIQUE: Multiple axial CT images of the cervical spine were obtained without contrast. A dose low ering technique was utilized adhering to the principles of ALARA. FINDINGS: Demineralized appearance of the bones. Multilevel intervertebral disc space narrowing, yuliet re at C6/C7. Moderate associated posterior disc osteophyte complex formation at this interspace. Yuliet re multilevel facet arthrosis. Grade 1 anterolisthesis C3 on C4, C4 on C5 and C5 on C6 is unchanged f rom comparison and likely secondary to chronic facet arthrosis. No acute fracture or subluxation iden tified. Multilevel neural foraminal narrowing. Lung apices are clear without pneumothorax. No prevertebral edema. Medial course of the common caroti d arteries. Moderate right mastoid effusion. IMPRESSION: 1. No acute cervical spine fracture or subluxation. 2. Moderate size right mastoid effusion. ACT 112: Negative or not required by law. The above report was generated using voice recognition software. It may contain grammatical, syntax o r spelling errors. Electronically signed by: Elia Yo M.D. 02/08/2021 8:24 AM
--- NOTE | 2021-02-08 08:40 | XRay Report ---
XR hand RT min 3V routine CLINICAL HISTORY: fall down stairs COMPARISON: Right fourth finger radiographs March 10, 2020. FINDINGS: Lucency within the distal aspect of the proximal phalanx of right thumb is noted. This is probably artifactual. No definite acute fracture within the right hand. Severe joint space narrowing with osteophytosis of multiple interphalangeal joints is noted. This represents osteoarthritis, possi diogo erosive. IMPRESSION: 1. Lucency within the distal aspect of the proximal phalanx of right thumb. This is likely artifactua l. Acute nondisplaced fracture could appear similar although is considered less likely. 2. 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 ACT 112: Negative or not required by law. Electronically signed by: Ashvin Hoang M.D. 02/08/2021 8:38 AM
--- NOTE | 2021-02-08 08:40 | XRay Report ---
XR hand LT min 3V routine HISTORY: 80 years-old Female fall down stairs acute bilateral hand pain status post fall COMPARISON: Right hand radiographs of same day TECHNIQUE: 3 views of the left hand FINDINGS: Demineralized appearance of the bones. Multifocal osteoarthritis, moderate within the interphalangeal joints. No acute fracture, dislocation or osseous erosion. Limited lateral view secondary to oblique positioning. IMPRESSION: No acute fracture or dislocation. ACT 112: Negative or not required by law. The above report was generated using voice recognition software. It may contain grammatical, syntax o r spelling errors. Electronically signed by: Elia Yo M.D. 02/08/2021 8:39 AM
[2021-02-08 08:47] LABS: Basophils # (auto) 0.04 K/uL (0-0.2); Basophils % (auto) 0.5 %; Eosinophils # (auto) 0.07 K/uL (0-0.5); Eosinophils % (auto) 0.9 %; Hematocrit (blood only) 34.6 % (37-47); Hemoglobin 10.5 g/dL (12.0-16.0); Immature Granulocytes # (auto) 0.08 K/uL (0.00-0.02); Lymphocytes # (auto) 2.06 K/uL (1.2-3.4); Mean Corpuscular Hemoglobin 26.9 pg (25-34); Mean Corpuscular Hgb Conc 30.3 g/dL (32-36); Mean Corpuscular Volume 88.7 fL (80-100); Monocytes # (auto) 0.93 K/uL (0.11-0.59); Monocytes % (auto) 11.7 %; Neutrophils # (auto) 4.74 K/uL (1.4-6.5); Neutrophils % (auto) 59.9 %; Platelet Count 270 K/uL (130-400); RDW Coefficient of Variation 17.2 % (11.5-14.5); RDW Standard Deviation 55.5 fL (36.4-46.3); White Blood Count 7.92 K/uL (4.8-10.8)
[2021-02-08 08:56] LABS: Alanine Aminotransferase 20 U/L (12-78); Albumin Level 2.4 gm/dl (3.4-5.0); Aspartate Aminotransferase 20 U/L (15-37); Bilirubin Direct < 0.1 mg/dl (0-0.2); Blood Urea Nitrogen 23 mg/dl (7-18); Calcium 7.8 mg/dl (8.5-10.1); Carbon Dioxide 23 mmol/L (21-32); Chloride 108 mmol/L (98-107); Creatinine Clr Calc Pharmacy 23.6 ml/min; Est GFR (Non-African American) 24.2 ml/min; Glucose 181 mg/dl (70-99); Potassium 4.8 mmol/L (3.5-5.1); Sodium 138 mmol/L (136-145)
[2021-02-08 09:01] LABS: Alkaline Phosphatase 112 U/L (45-117); Bilirubin,Total 0.6 mg/dl (0.2-1); Creatine Kinase 381 U/L (26-192); Total Protein 5.9 gm/dl (6.4-8.2); Troponin I < 0.015 ng/ml (0-0.045)
--- NOTE | 2021-02-08 11:13 | Electrocardiogram Report ---
Test Reason : Blood Pressure : / mmHG Vent. Rate : 122 BPM Atrial Rate : 122 BPM P-R Int : 142 ms QRS Dur : 070 ms QT Int : 334 ms P-R-T Axes : 039 094 040 degrees QTc Int : 475 ms Poor data quality, interpretation may be adversely affected Sinus tachycardia Rightward axis Borderline ECG When compared with ECG of 22-DEC-2018 15:06, Vent. rate has increased BY 53 BPM T wave inversion no longer evident in Lateral leads Confirmed by Jaguar Melara ([id number]) on 02/08/2021 11:12:52 AM Referred By: REFERRED SELF Confirmed By:Jaguar Melara
[2021-02-08 16:29] LABS: Basophils # (auto) 0.06 K/uL (0-0.2); Basophils % (auto) 0.6 %; Eosinophils # (auto) 0.03 K/uL (0-0.5); Eosinophils % (auto) 0.3 %; Hemoglobin 9.9 g/dL (12.0-16.0); Immature Granulocytes # (auto) 0.11 K/uL (0.00-0.02); Immature Granulocytes % (auto) 1.1 %; Lymphocytes # (auto) 1.37 K/uL (1.2-3.4); Lymphocytes % (auto) 13.2 %; Mean Corpuscular Hemoglobin 26.8 pg (25-34); Mean Corpuscular Volume 89.2 fL (80-100); Monocytes # (auto) 0.98 K/uL (0.11-0.59); Monocytes % (auto) 9.4 %; Neutrophils # (auto) 7.85 K/uL (1.4-6.5); Neutrophils % (auto) 75.4 %; Platelet Count 262 K/uL (130-400); RDW Coefficient of Variation 17.2 % (11.5-14.5); RDW Standard Deviation 56.4 fL (36.4-46.3)
[2021-02-08] MEDS: ACETAMINOPHEN 325 MG TAB PO SCH (16:36)
[2021-02-08 16:47] LABS: Albumin Level 2.7 gm/dl (3.4-5.0); BUN Creatinine Ratio 10.6 (10-20); Calcium 7.8 mg/dl (8.5-10.1); Creatinine Clr Calc Pharmacy 17.5 ml/min; Est GFR (African American) 19.5 ml/min; Est GFR (Non-African American) 16.8 ml/min; Potassium 5.6 mmol/L (3.5-5.1)
[2021-02-08 16:50] LABS: Appearance Urine Clear (Clear); Bilirubin Urine Negative (Negative); Blood Urine Negative (Negative); Color Urine Dark Yellow; Glucose Urine UA Negative (Negative); Ketones Urine Trace (Negative); Leukocyte Esterase Urine Negative (Negative); Nitrite Urine Negative (Negative); Protein Urine Negative (Negative); Specific Gravity Urine > 1.045 (1.000-1.030); Urobilinogen Urine Negative (Negative)
[2021-02-08 16:54] LABS: Albumin Globulin Ratio 0.7 (0.9-2); Bilirubin,Total 0.6 mg/dl (0.2-1); Globulin 3.7 gm/dl (2.5-4.0); Total Protein 6.4 gm/dl (6.4-8.2)
[2021-02-08] MEDS ORDERED: PATIROMER CALCIUM SORBITEX 8.4 GM PACK PO STA (17:57)
[2021-02-08] MEDS ORDERED: BUMETANIDE 4 MG in SYRINGE 0 ML IV ONE ×2 (18:15→22:15)
--- NOTE | 2021-02-08 18:38 | Hospitalist Progress Note ---
Date of Service February 08, 2021 Assessment & Plan (1) Right rib fracture: Plan: Acute; ribs 3-5, 7, 8, 9; not at goal -Pain control * Scheduled IV Tylenol every 8 hours * IV oxycodone 5 mg every 4 hours as needed * IV morphine 4 mg every 4 hours as needed (2) Oliguria: Plan: Acute; worsening; not at goal -Patient had not made urine since admission at 2 AM this morning -2 separate bladder scans showed 50 mL and 65 mL in the bladder, suggesting because of oliguria now post renal -Stat creatinine obtained this afternoon was 2.61, up from 1.9 this morning, up from 1.4 yesterday -Repeat potassium 5.6, up from 4.8 this morning; EKG negative for peaked T waves -Nephrology consulted. Per recs: * N.p.o. now * IV Bumex 4 mg (currently held, pending CT abdomen/pelvis results) * Reassess for possible dialysis in the a.m. -Possible etiology traumatic rhabdo (CK 381, then 582) versus abdominal compartment syndrome; repeat stat CT abdomen pelvis ordered -Consider abdominocentesis in the event that CT shows worsening extravasation of hematoma; surgery already aware -Trend a.m. CBC, CMP, CK (3) Compression fracture of T4 vertebra: Plan: See above (right sided rib fracture) (4) Traumatic hematoma of buttock: Plan: See above (right-sided rib fracture) -Given this patient's acute onset kidney injury, is a possibility that the hematoma, which was deemed severe on initial CT, is responsible for possible compartment syndrome of the abdomen -Repeat CT abdomen/pelvis ordered; patient may require surgical drainage; surgery already aware (5) Precordial chest pain: Plan: Resolved -Patient initially complained of chest pain on admission -Troponins negative x2 (6) Hypertension: Plan: Chronic; stable; at goal -Started on home metoprolol 25 mg every morning, hydrochlorothiazide 12.5 mg every morning -Given patient's acute kidney injury, consider holding hydrochlorothiazide (also, patient's blood pressures have been low normal, which is not concerning at this time but may be in the future) (7) Diabetes mellitus, type 2: Plan: Chronic -Patient normally on 70/30 Novolin (40 units at night, 50 units in the morning) -Home regimen held on admission; patient started on 10 units of light Lantus twice daily plus sliding scale insulin at mealtime -Reassess in the morning after 24 hours to titrate inpatient insulin regimen (8) CAD (coronary artery disease): Plan: Chronic; stable -Patient on aspirin 81 mg normally -Aspirin held on admission due to patient's traumatic hematomas -Continue to hold (9) DVT prophylaxis: Plan: Necessary to establish now, given patient's recent immobilization -Currently on SCDs, might consider switching to Lovenox at later date. Admission and Anticipated Discharge Date Admission Date: February 07, 2021 Supervising Physician Co-Signing Physician Notes Attending attestation Pt seen and examined in concert with Dr. Vale. In agreement with the documented findings as noted in the resident documentation with any exceptions or additions as noted here. Persistent right sided chest pain which is adequately controlled with current regimen and symptom avoidance. No reported sensory changes or midback pain with compression fracture noted. Throughout the course of the day, some increased abdominal tightness especially in the last 4 hours (to approx 1830) on examination. On examination, S1/S2 nl RRR no MCG. CTAB with limited examination 2/2 pain and positioning. Gluteal hematomas are TTP without surface ecchymosis Oliguria with rapidly rising Cr - q6 hour CBC/BMP, telemetry monitoring with transfer to PCU. Nephrology consultation. Stat repeat CT abd/pelv w/o contrast. Surgical consultation for evaluation of abdomen to evaluate for compressive pathology following ^^ Hyperkalemia - Ca gluconate or insulin/dextrose protocol if continues uptrending or symptomatic Extravasating gluteal hematoma with downtrending hemoglobin - consented for transfusion - q6 hour CBC, transfuse @ 7, repeat CT abd/pelv. Surgical consultation. Polytrauma predominantly 2/2 right sided rib fx - tolerating present pain regimen, continue Else see resident documentation as noted. Subjective 80-year-old female, who is here for a fall down the stairs (about 18 steps). Found to have 6 broken anterior ribs on the right side (3-5, 7, 8, 9), 1 acutely compressed vertebrae, T4 as well as bilateral gluteal hematomas with extravasation. Denies head trauma, loss of consciousness. Today, she is lying in bed uncomfortably, due to pain. She also reports pain in her right upper quadrant in the abdomen, bilateral hip pain, difficulty taking a deep breath due to pain. She reports her belly feels full, despite not having had anything to eat. Physical Exam Constitutional: + acute distress Respiratory: normal respiratory effort, lungs clear to auscultation Cardiovascular: RRR, no murmur, no edema Gastrointestinal (Abdomen): Percussion/Palpation: + abdomen tender (Right upper quadrant) and + guarding Musculoskeletal: Hip: + joint line tenderness; no skin erythema and no ecchymosis Neurologic: PERRL, EOMI, accommodation nl, no face palsy, no dysarthria Results & Data Results & Data ([facility]) Vital Signs (Past 12 Hours) Vital Signs Temp Pulse Pulse Resp BP BP BP 02/08/21 08:01 36.8 C 107 H 20 117/89 02/08/21 02:39 37 C 113 H 18 131/79 02/08/21 02:05 37 C 114 H 113 H 18 131/79 02/08/21 01:30 EST 108 H 18 02/08/21 01:20 EST 108 H 21 02/08/21 01:10 EST 114 H 23 02/08/21 01:00 EST 111 H 19 02/08/21 01:33 EDT 106 H 17 129/72 02/08/21 00:50 110 H 19 02/08/21 00:40 107 H 15 02/08/21 00:30 108 H 17 02/08/21 00:20 107 H 20 02/08/21 00:10 113 H 18 02/08/21 00:00 110 H 18 02/07/21 23:50 116 H 27 H 02/07/21 23:40 109 H 22 02/07/21 23:30 02/07/21 23:22 02/07/21 23:10 93 H 11 L 02/07/21 23:00 99 H 15 104/56 L 02/07/21 22:50 101 H 17 02/07/21 22:40 107 H 20 02/07/21 22:30 97 H 16 02/07/21 22:20 101 H 17 02/07/21 22:10 101 H 19 02/07/21 22:03 101 H 19 02/07/21 21:40 98 H 19 02/07/21 21:30 96 H 20 129/60 Pulse Ox 02/08/21 08:01 94 02/08/21 02:39 92 02/08/21 02:05 92 02/08/21 01:30 EST 97 02/08/21 01:20 EST 92 02/08/21 01:10 EST 95 02/08/21 01:00 EST 95 02/08/21 01:33 EDT 98 02/08/21 00:50 94 02/08/21 00:40 94 02/08/21 00:30 94 02/08/21 00:20 94 02/08/21 00:10 95 02/08/21 00:00 97 02/07/21 23:50 93 02/07/21 23:40 96 02/07/21 23:30 93 02/07/21 23:22 95 02/07/21 23:10 96 02/07/21 23:00 95 02/07/21 22:50 94 02/07/21 22:40 93 02/07/21 22:30 02/07/21 22:20 94 02/07/21 22:10 94 02/07/21 22:03 91 02/07/21 21:40 95 02/07/21 21:30 95 Resident Activity Tracking Resident Involvement: Resident Care Provided Care Provided: Adult Hospital Medicine (1) Right rib fracture Encounter type: initial encounter Fracture type: closed Rib fracture type: multiple ribs Qualified Code(s): S22.41XA - Multiple fractures of ribs, right side, initial encounter for closed fracture (2) Compression fracture of T4 vertebra Encounter type: initial encounter Qualified Code(s): S22.040A - Wedge compression fracture of fourth thoracic vertebra, initial encounter for closed fracture (3) Traumatic hematoma of buttock Encounter type: initial encounter Qualified Code(s): S30.0XXA - Contusion of lower back and pelvis, initial encounter
[2021-02-08] MEDS: MoRPHine SULFATE 4 MG/ML 1 ML CARP\\VIAL IV PRN ×2 (19:44→23:49)
[2021-02-08 21:03] LABS: Basophils # (auto) 0.05 K/uL (0-0.2); Basophils % (auto) 0.5 %; Eosinophils # (auto) 0.15 K/uL (0-0.5); Eosinophils % (auto) 1.4 %; Hematocrit (blood only) 34.7 % (37-47); Hemoglobin 10.7 g/dL (12.0-16.0); Immature Granulocytes # (auto) 0.11 K/uL (0.00-0.02); Lymphocytes % (auto) 21.7 %; Mean Corpuscular Hemoglobin 26.8 pg (25-34); Mean Corpuscular Hgb Conc 30.8 g/dL (32-36); Mean Platelet Volume 8.9 fL (7.4-10.4); Monocytes # (auto) 1.11 K/uL (0.11-0.59); Neutrophils # (auto) 7.25 K/uL (1.4-6.5); Neutrophils % (auto) 65.4 %; Platelet Count 287 K/uL (130-400); RDW Coefficient of Variation 17.2 % (11.5-14.5); RDW Standard Deviation 55.2 fL (36.4-46.3); Red Blood Count 3.99 M/uL (4.2-5.4); White Blood Count 11.07 K/uL (4.8-10.8)
[2021-02-08 21:24] LABS: BUN Creatinine Ratio 11.4 (10-20); Calcium 8.1 mg/dl (8.5-10.1); Est GFR (African American) 18.8 ml/min; Est GFR (Non-African American) 16.3 ml/min; Potassium 5.4 mmol/L (3.5-5.1)
[2021-02-09] MEDS: ACETAMINOPHEN 325 MG TAB PO SCH ×4 (00:26→23:59)
[2021-02-09] MEDS ORDERED: ACETAMINOPHEN 1,000 MG/100 ML VIAL IV PRN (01:26)
[2021-02-09] MEDS ORDERED: HYDROmorphone INJ 0.5 MG/0.5 ML SYR IV PRN (01:26)
--- NOTE | 2021-02-09 03:03 | Surgery Consultation ---
Date of Consultation February 09, 2021 Assessment & Plan (1) Abdominal distention: At the present time and I feel patient is suffering from abdominal compartment syndrome. If this condition were present possible interventions would include decompressing the bladder with Rodríguez catheter which is already being done. In addition consideration can be given to placing an NG tube if nausea vomiting or worsening abdominal distention ensue. If there is any free fluid noted within the abdomen paracentesis would be attempted but not appreciate any free fluid on her abdominal CT scan. I would consider other etiologies of her oliguria including rhabdomyolysis in the setting of IV diuretic use as well as recent intravenous contrast given with her first round of CT scans. Would recommend obtaining a nephrology consultation which has been placed. At the present time I not feel there is any need for acute surgical intervention. We will continue to follow along with the patient is hospitalized. Supervising Physician Co-Signing Physician Notes I personally saw and evaluated the patient with Chago Howe PA-C and agree with the assessment and plan 80 yo female with oliguria -Bladder pressure measured at 18 -She is oliguric but still making urine -No signs of ACS -Consider nephrology consult -Will follow from the periphery History of Present Illness Reason for Consultation: Abdominal distention Attending Physician: Saroj Vidal MD History of Present Illness This is a 80-year-old female who was admitted to [facility] after suffering a fall. Patient's labs and imaging were independently reviewed by myself.She had numerous CT scans at time of admission on 02/07/2021. A CT scan of the abdomen and pelvis did not demonstrate any intra-abdominal injury however the patient was noted to have bilateral gluteal hematomas with the left being greater than the right. Cervical spine CT scan did not show any fractures or subluxations. CT scan of the chest did not show any intrathoracic injuries however the patient was noted to have multiple right-sided rib fractures. She had a right hand x- ray that showed a possible fracture of the right thumb. The left hand x-ray demonstrated no fractures. A CT scan of the head showed a left frontal scalp contusion but no other intracranial process was noted. Lumbar and thoracic spine CT scans were performed that showed endplate fractures at T2 and T4 that were possibly new and a chronic T11 endplate fracture. Patient's labs have been subsequently reviewed and her most recent white blood cell count is 11.0. Her hemoglobin and hematocrit are 10.7 and 34.7 respectively. Her initial hemoglobin was noted to be 12.5. Platelet count is within normal range. Chemistry profile showed sodium was 138. Her potassium is gone from 4.4-5.4. Her BUN and creatinine are 31 and 2.68. Her initial creatinine was noted to be 1.4 and her initial BUN was 23. Total CK levels were checked and were initially noted to be 381 and are now up to 582. Urinalysis was not indicative of infection. A Covid test has been performed this admission which is no to be negative. I was contacted by the medical services they feel that the patient has had some worsening abdominal distention and has been oliguric. They therefore repeated a CT scan of her abdomen. This shows the patient has a distended stomach filled with material that is consistent with ingested food. She is also noted to have a large left gluteal hematoma. No extravasation was noted. Ankle service noted that the patient has been oliguric and because of this and the increasing abdominal distention they checked a bladder pressure for abdominal compartment syndrome and the pressure was noted to be 18. I visited with the patient and the patient notes generalized pain related to her fall. Pain is worse on the right side of her lower chest where her rib fractures are. She currently denies any nausea vomiting. She does note some minor abdominal pain with deep palpation in the epigastric and left upper quadrant. He denies any fevers, shakes, chills. She denies any shortness of breath. At the time of my visit the patient was sleeping but easily aroused. She was in no distress. I did discuss with the nurse at the bedside and she notes that the patient has made approximately 40 cc of urine over the past 2 hours. The nurse did not identify any other concerns at this time. Allergies Allergy/AdvReac Type Severity Reaction Status Date / Time gluten Allergy Intermediate Hives Verified 02/07/21 22:25 Home Medications Medication Instructions Recorded Confirmed Type guaifenesin 600 mg tablet, 600 mg PO Q12H PRN 01/31/18 02/07/21 History extended release 12 hr (Mucinex) insulin human U-100 NPH-regulr See Rx Instructions .ROUTE .COMPLEX 01/31/18 02/07/21 History 70-30 mix 100 unit/mL subcutaneous susp (Novolin 70/30 U-100 Insulin) omeprazole 20 mg tablet,delayed 20 mg PO QAM 01/31/18 02/07/21 History release duloxetine 60 mg capsule,delayed 60 mg PO QAM 03/30/18 02/07/21 History release (Cymbalta) aspirin 81 mg tablet,delayed 81 mg PO DAILY 08/14/19 02/07/21 History release (Adult Low Dose Aspirin) metoprolol succinate 50 mg 25 mg PO QAM tab 02/19/20 02/07/21 History tablet,extended release 24 hr nitroglycerin 0.4 mg sublingual 0.4 mg SUBLINGUAL ONCE PRN #20 tab 03/21/20 02/07/21 Rx tablet (Nitrostat) hydrochlorothiazide 12.5 mg capsule 12.5 mg PO DAILY #90 cap 02/04/21 02/07/21 R x alirocumab 75 mg/mL subcutaneous 75 mg SUBCUT .[id number] 02/07/21 02/07/21 History pen injector (Praluent Pen) [id number] tablet 1 tab PO BID 02/07/21 02/07/21 History peg 400-propylene glycol (PF) 0.4 1 drp OPHTHALMIC (EYE) QID PRN 02/07/21 02/07/21 History %-0.3 % eye drops in a dropperette (Systane (PF)) vit A 1,000 unit-C 200 mg-E 60 1 tab PO BID 02/07/21 02/07/21 History unit-lutein 2 mg and minerals tablet (Vision Formula (with lutein)) Patient History Medical History Anxiety BOOP (bronchiolitis obliterans with organizing pneumonia) 2005 CAD (coronary artery disease) Chronic back pain Chronic cough Degenerative disc disease Depression Diabetes mellitus, type 2 IDDM Dyspnea GERD (gastroesophageal reflux disease) Glaucoma NO MEDICATIONS CURRENTLY Hiatal hernia History of bronchiolitis obliterans with organizing pneumonia Hyperlipidemia Hypertension Insomnia Osteoarthritis Sleep apnea NO MACHINE CURRENTLY Surgical History H/O umbilical hernia repair History of appendectomy History of bronchoscopy History of cardiac cath [facility] History of colonoscopy History of heart artery stent X1 (2005) History of laminectomy LUMBAR AREA X2 History of laparoscopy OVARIAN CYSTECTOMY History of tonsillectomy S/P inguinal hernia repair S/P NIRALI-BSO Family History Family/Other Family history of diabetes mellitus Father Myocardial infarction CHF (congestive heart failure) Mother Alzheimer disease Brother Heart disease Social History Smoking Status: Never smoker Second Hand Exposure: No; Hx Alcohol Use: Yes Alcohol type: beer Hx Substance Use: No Preferred Language: Malay Communication Ability: Effective 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 Beliefs That Will Affect Care: None marital status: Current Living Situation: Spouse current occupational status: retired Feels Safe at Home: Yes Assistive Devices: Oxygen - Continuous and Walker Review of Systems Constitutional: no fever and no chills Eyes: no diplopia Ear, Nose, Mouth, Throat: no ear pain and no sore throat Respiratory: no cough and no dyspnea Cardiovascular: no chest pain Gastrointestinal: + abdominal pain (Only noted with palpation); no nausea and no vomiting Genitourinary: Oliguria Musculoskeletal: + back pain and + body aches Integumentary: no rash Neurologic: no localized weakness Physical Exam Constitutional: well developed, well nourished and + obese; no acute distress Eyes: no conjunctival abnormality ENMT: Ears: no hearing impairment Mouth: no oropharynx abnormality Neck: trachea midline Respiratory: normal respiratory effort; no respiratory distress and no labored breathing Cardiovascular: Rate/Rhythm: regular rate and regular rhythm Gastrointestinal (Abdomen): Abdomen is rotund and is moderately distended. There is no rebound tenderness or guarding. I did not appreciate any hernias. Patient did have pain with deep palpation noted in the epigastric area and left upper quadrant Musculoskeletal: No calf tenderness Skin: no rashes Neurologic: moves all extremities Psychiatric: A+Ox3, euthymic affect Results & Data ([facility]) Vital Signs (Past 12 Hours) Vital Signs Temp Pulse Pulse Resp BP BP Pulse Ox 02/09/21 01:00 36.4 C L 99 H 20 138/75 93 02/08/21 22:22 36.4 C L 93 H 14 121/72 93 02/08/21 22:19 93 H 02/08/21 19:50 36.6 C 93 H 18 127/70 96 02/08/21 16:30 36.8 C 93 H 20 104/63 91 PG Care Time/CCT Total # of Minutes Spent Total Time Spent with Patient: Total time spent is greater than 50% in coordination of care (as documented) at patient's floor/unit and/or counseling patient: Coding Level of Care Code 37751 Inpt Consult Level 5 Diagnoses Abdominal distention R14.0
[2021-02-09 04:14] LABS: BUN Creatinine Ratio 11.8 (10-20); Calcium 7.7 mg/dl (8.5-10.1); Creatinine Clr Calc Pharmacy 15.8 ml/min; Est GFR (African American) 17.3 ml/min; Est GFR (Non-African American) 14.9 ml/min; Potassium 5.1 mmol/L (3.5-5.1)
[2021-02-09 06:52] LABS: Hematocrit (blood only) 33.5 % (37-47); Hemoglobin 9.8 g/dL (12.0-16.0); Mean Corpuscular Hemoglobin 26.6 pg (25-34); Mean Corpuscular Hgb Conc 29.3 g/dL (32-36); Mean Corpuscular Volume 90.8 fL (80-100); Platelet Count 282 K/uL (130-400); RDW Coefficient of Variation 17.3 % (11.5-14.5); RDW Standard Deviation 57.4 fL (36.4-46.3); Red Blood Count 3.69 M/uL (4.2-5.4); White Blood Count 12.67 K/uL (4.8-10.8)
--- NOTE | 2021-02-09 07:25 | CT Scan Report ---
CT abd pelvis wo con CLINICAL HISTORY: reevaluate bilateral gluteal hematomas; worsening kidney function COMPARISON STUDY: 02/07/2021 CT DOSE: 1444.57 mGy.cm TECHNIQUE: Standard CT of the Abdomen and Pelvis was performed without IV contrast. The patient did not receive oral contrast. A dose lowering technique was utilized adhering to the principles of KEYON Guerrero FINDINGS: Lung base: There is bibasilar atelectasis present. Right-sided rib fractures are again seen with no evidence for pneumothorax by this study. The heart size is within normal limits with coronary artery calcification. Abdominal cavity: There is no evidence for abdominal mass, adenopathy or ascites. There is again no e vidence for intra-abdominal or intrapelvic hematoma. There is no change in bilateral gluteal hematoma s and contusions. Small umbilical hernia is again seen. Liver: The liver is homogeneous in attenuation on these limited noncontrast images.. Spleen: The spleen is homogeneous in attenuation on these limited noncontrast images. Pancreas: The pancreas is homogeneous in attenuation on these limited noncontrast images. Gall Bladder: The gallbladder is distended with serendipitous excretion of contrast into the gallblad laura. Adrenal glands: The adrenal glands are normal in size and attenuation on these limited noncontrast im ages. Kidneys: The kidneys are homogeneous in attenuation on these limited noncontrast images. There is con trast seen within the renal collecting systems from previous CT with contrast. There is no evidence f or hydronephrosis bilaterally. Small simple right renal cyst is again seen. There is no gross renal m ass. Bowel: The stomach is markedly distended with liquid and food stuff. There is evidence for small slid ing-type hiatal hernia. The bowel loops are otherwise normally placed within the abdomen and pelvis. There is no evidence for mass lesion. There are no inflammatory changes present. There is no evidence for free air. Bladder: Rodríguez catheter is present within the bladder. : There is no evidence for pelvic mass or adenopathy. Status post hysterectomy. Vasculature: There is no evidence for focal aneurysmal dilatation of the abdominal aorta. Osseous structures: There is no acute osseous pathology. Extensive degenerative changes are again see n within the lumbar spine. IMPRESSION: 1. Compared to the previous examination, there is no significant interval change. Bilateral gluteal h ematomas are again seen, left greater than right. 2. There is again no evidence for intra-abdominal or intrapelvic hematoma. 3. Contrast is seen within the renal collecting systems bilaterally related to previous CT with no ev idence for hydronephrosis. 4. Additional findings are again seen as described above which are again essentially unchanged from t he previous study. ACT 112: Negative or not required by law. Electronically signed by: Maximiliano Nunez M.D. 02/09/2021 7:24 AM
[2021-02-09 07:38] LABS: BUN Creatinine Ratio 11.2 (10-20); Calcium 8.2 mg/dl (8.5-10.1); Creatinine Clr Calc Pharmacy 15.4 ml/min; Est GFR (African American) 16.6 ml/min; Est GFR (Non-African American) 14.3 ml/min; Potassium 5.1 mmol/L (3.5-5.1)
[2021-02-09] MEDS: FAMOTIDINE 20 MG TAB PO SCH (07:50)
[2021-02-09] MEDS: METOPROLOL SUCC 25MG EXT REL TAB PO SCH (07:50)
[2021-02-09] MEDS: DULoxetine HCL 60 MG CAP PO SCH (07:50)
[2021-02-09] MEDS: hydroCHLOROthiazide 25 MG TAB PO SCH (07:54)
[2021-02-09] MEDS: LIDOCAINE 5% 1 PATCH TD SCH ×2 (07:55→07:56)
[2021-02-09] MEDS: INSULIN ASPART 100 UNITS/ML 3 ML PEN SC SCH ×4 (07:57→21:32)
[2021-02-09] MEDS: INSULIN GLARGINE SOLOSTAR 100 UNITS/ML 3 ML PEN SC SCH ×2 (08:03→21:32)
[2021-02-09] MEDS ORDERED: BUMETANIDE 4 MG in SYRINGE 0 ML IV ONE ×2 (08:30→20:30)
--- NOTE | 2021-02-09 10:50 | Nephrology Consultation ---
Date of Consultation February 09, 2021 Assessment & Plan (1) Acute kidney injury: (2) Oliguria: (3) Right rib fracture: (4) Hypertension: 80-year-old female admitted after a fall at home, had multiple rib fracture, found to have CHAVA and hyperkalemia. Although she received IV contrast, cr was already higher than her b/l on admission , 1.4 ( b/l cr 1.0). Urinalysis was unremarkable, imaging was negative for postrenal obstruction. Currently her respiratory status seems acceptable on 2 L nasal cannula oxygen, blood pressure stable. --no indication for [employer] at this time. Will give another dose of Bumex 4 mg IV x1 dose, monitor urine output next 2-3 hours, if she remains oliguric, may need to consider urgent hemodialysis for ultrafiltration. If respond to diuretic, electrolyte acceptable Ok to resume diet and monitor --renal panel in afternoon --Avoid IV fluid Will follow Thank you for allowing me to participate in your patient's care. It was a pleasure to see Lisa. History of Present Illness Reason for Consultation: oliguric acute kidney injury. Attending Physician: Stephen Chavez DO History of Present Illness Ms. Lisa Brown is a 80-year-old female with past medical history significant for hypertension, diabetes, coronary artery disease admitted to the hospital after a fall at home and multiple injury as well as acute kidney injury. Nephrology consult was requested for further management of oliguric acute kidney injury. EMS records are reviewed in detail during patient's visit. Shelia presented to hospital on 02/07/2021 after she had a fall at home. on admission imaging showed multiple Rib fracture. CT abdomen pelvis with IV contrast was negative for any intra-abdominal or pelvic organ injury. She was noted to have gluteal hematoma. Admission lab showed creatinine of 1.4, with baseline decent renal function and creatinine around 1.0. Creatinine sharply increased to 2.6 within 24 hours. urinalysis was negative for proteinuria, hematuria pyuria. Imaging was negative for postrenal obstruction. She reports normal p.o. intake and urine output at home prior to the fall. She was on IV fluids since admission and despite getting more than 3 L of IV fluid, she remained oliguric since admission. Blood pressure has been variable however no significant hypotensive episode. received 4 mg of IV Bumex yesterday and had 200 cc of urine output. Her O2 sat dropped on room air and currently she is on 2 L of nasal cannula oxygen however, she denies any respiratory distress. Potassium increased to 5.6 yesterday however improved to 5.0 this morning after 1 dose of Veltassa last night. She has been having mainly right upper quadrant pain, repeat CT abdomen pelvis without contrast was similar to prior CT scan. Currently she seems comfortable except abdominal pain. Allergies Allergy/AdvReac Type Severity Reaction Status Date / Time gluten Allergy Intermediate Hives Verified 02/07/21 22:25 Home Medications Medication Instructions Recorded Confirmed Type guaifenesin 600 mg tablet, 600 mg PO Q12H PRN 01/31/18 02/07/21 History extended release 12 hr (Mucinex) insulin human U-100 NPH-regulr See Rx Instructions .ROUTE .COMPLEX 01/31/18 02/07/21 History 70-30 mix 100 unit/mL subcutaneous susp (Novolin 70/30 U-100 Insulin) omeprazole 20 mg tablet,delayed 20 mg PO QAM 01/31/18 02/07/21 History release duloxetine 60 mg capsule,delayed 60 mg PO QAM 03/30/18 02/07/21 History release (Cymbalta) aspirin 81 mg tablet,delayed 81 mg PO DAILY 08/14/19 02/07/21 History release (Adult Low Dose Aspirin) metoprolol succinate 50 mg 25 mg PO QAM tab 02/19/20 02/07/21 History tablet,extended release 24 hr nitroglycerin 0.4 mg sublingual 0.4 mg SUBLINGUAL ONCE PRN #20 tab 03/21/20 02/07/21 Rx tablet (Nitrostat) hydrochlorothiazide 12.5 mg capsule 12.5 mg PO DAILY #90 cap 02/04/21 02/07/21 Rx alirocumab 75 mg/mL subcutaneous 75 mg SUBCUT .[id number] 02/07/21 02/07/21 History pen injector (Praluent Pen) [id number] tablet 1 tab PO BID 02/07/21 02/07/21 History peg 400-propylene glycol (PF) 0.4 1 drp OPHTHALMIC (EYE) QID PRN 02/07/21 02/07/21 History %-0.3 % eye drops in a dropperette (Systane (PF)) vit A 1,000 unit-C 200 mg-E 60 1 tab PO BID 02/07/21 02/07/21 History unit-lutein 2 mg and minerals tablet (Vision Formula (with lutein)) Patient History Medical History (Updated 02/09/21 @ 10:52 by Edwina Barth MD) Acute kidney injury Anxiety BOOP (bronchiolitis obliterans with organizing pneumonia) 2005 CAD (coronary artery disease) Chronic back pain Chronic cough Degenerative disc disease Depression Diabetes mellitus, type 2 IDDM Dyspnea GERD (gastroesophageal reflux disease) Glaucoma NO MEDICATIONS CURRENTLY Hiatal hernia History of bronchiolitis obliterans with organizing pneumonia Hyperlipidemia Hypertension Insomnia Osteoarthritis Sleep apnea NO MACHINE CURRENTLY Surgical History H/O umbilical hernia repair History of appendectomy History of bronchoscopy History of cardiac cath [facility] History of colonoscopy History of heart artery stent X1 (2005) History of laminectomy LUMBAR AREA X2 History of laparoscopy OVARIAN CYSTECTOMY History of tonsillectomy S/P inguinal hernia repair S/P NIRALI-BSO Family History Family/Other Family history of diabetes mellitus Father Myocardial infarction CHF (congestive heart failure) Mother Alzheimer disease Brother Heart disease Social History Smoking Status: Never smoker Second Hand Exposure: No; Hx Alcohol Use: Yes Alcohol type: beer Hx Substance Use: No Preferred Language: Ukrainian Communication Ability: Effective 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 Physical Exam Constitutional: WD/WN, vitals as above no acute distress Eyes: + anicteric sclerae ENMT: Ears: no hearing impairment and no external ear abnormality Nose: n nasim mucous membranes not dry Neck: normal visual inspection Thyroid: no thyromegaly Respiratory: normal respiratory effort; no respiratory distress and no cough Auscultation: + diminished lung sounds Cardiovascular: Rate/Rhythm: regular rate and regular rhythm Heart Sounds: normal S1 and normal S2 Extremities: no edema Gastrointestinal (Abdomen): Inspection/Auscultation: abdomen normal to inspection and normal bowel sounds Percussion/Palpation: abdomen soft; abdomen nontender Musculoskeletal: Mild swelling and bruises in bilateral hands Skin: normal turgor; no rashes Neurologic: no focal motor deficits and not confused Psychiatric: Orientation: alert and oriented x 3 Affect: euthymic affect Results & Data ([facility]) Vital Signs (Past 12 Hours) Vital Signs Temp Pulse Resp BP Pulse Ox 02/09/21 07:58 36.6 C 103 H 14 145/70 H 89 L 02/09/21 01:00 36.4 C L 99 H 20 138/75 93 PG Care Time/CCT Total # of Minutes Spent Total Time Spent with Patient: Total time spent is greater than 50% in coordination of care (as documented) at patient's floor/unit and/or counseling patient: Coding Level of Care Code 55991 Initial Inpt Care Lvl 3 Diagnoses Acute kidney injury N17.9 Oliguria R34 Right rib fracture S22.41XA Encounter type: initial encounter Fracture type: closed Rib fracture type: multiple ribs Hypertension I10 (1) Right rib fracture Encounter type: initial encounter Fracture type: closed Rib fracture type: multiple ribs Qualified Code(s): S22.41XA - Multiple fractures of ribs, right side, initial encounter for closed fracture
--- NOTE | 2021-02-09 12:09 | Electrocardiogram Report ---
Test Reason : Blood Pressure : / mmHG Vent. Rate : 086 BPM Atrial Rate : 086 BPM P-R Int : 148 ms QRS Dur : 080 ms QT Int : 396 ms P-R-T Axes : 045 056 090 degrees QTc Int : 473 ms Normal sinus rhythm Normal ECG When compared with ECG of 07-FEB-2021 20:43, Nonspecific T wave abnormality now evident in Lateral leads Confirmed by Jaguar Melara ([id number]) on 02/09/2021 12:09:21 PM Referred By: REFERRED SELF Confirmed By:Jaguar Melara
[2021-02-09 13:30] LABS: Albumin Level 2.9 gm/dl (3.4-5.0); BUN Creatinine Ratio 11.7 (10-20); Creatinine Clr Calc Pharmacy 14.3 ml/min; Est GFR (African American) 15.1 ml/min; Est GFR (Non-African American) 13.1 ml/min; Phosphorus 5.9 mg/dl (2.5-4.9); Potassium 5.9 mmol/L (3.5-5.1)
--- NOTE | 2021-02-09 13:51 | Hospitalist Progress Note ---
Date of Service February 09, 2021 Assessment & Plan (1) Right rib fracture: Plan: 1) Right rib fractures Acute; ribs 3-5, 7, 8, 9 -Pain control * Scheduled IV Tylenol every 8 hours * IV oxycodone 5 mg every 4 hours as needed * IV morphine 4 mg every 4 hours as needed -consider pain management consult 2) T4 compression fracture -see above 3) Traumatic hematoma of buttocks -See #1 above -Initial CT severe showed areas of active extravasation, there was initial conc harris for abdominal compartment syndrome -Repeat CT abdomen/pelvis showed no evidence of intraabdominal/pelvic hematoma 4) Oliguria -Acute, worsening -2 separate bladder scans showed 50 mL and 65 mL in the bladder, suggesting because of oliguria now post renal -Cr initially 1.4 on admission --> today at 3.21 --> 3.3, elevated from yesterday -Potassium 4.8 --> 5.6 --> 5.1 --> 5.9; EKG negative for peaked T waves; K elevated to 6.4 on repeat labs, given 10 units insulin + 50mL D50 -Was being given Bumex per Nephrology, After discussion, will attempt to give gentle fluids in the setting of pre-renal CHAVA. Trend renal panel. -Surgery believes this is not compartment syndrome --> advises against any surgery at this time 5) HTN -Chronic; stable -cont. home metoprolol 25 mg and hydrochlorothiazide 12.5 mg daily -Given patient's acute kidney injury, consider holding hydrochlorothiazide 6) DM2 -Patient normally on 70/30 Novolin (40 units at night, 50 units in the morning) -Home regimen held on admission; patient started on 10 units of light Lantus twice daily plus SSI 7) CAD -Chronic; stable -Aspirin held on admission due to patient's traumatic hematomas DVT PPX: SCDs, consider switching to Lovenox at later date. (2) Oliguria: (3) Compression fracture of T4 vertebra: (4) Traumatic hematoma of buttock: (5) Precordial chest pain: (6) Hypertension: (7) Diabetes mellitus, type 2: (8) CAD (coronary artery disease): (9) DVT prophylaxis: Admission and Anticipated Discharge Date Admission Date: February 07, 2021 Supervising Physician Co-Signing Physician Notes I personally examined the patient and verified all pedro points of history and exam, discussed case, and agree with decision making with Dr Moody Chest pain with breathing coughing or laughing, but overall under reasonable control. No real complaints of back pain. Left upper abdominal lower rib pain/fullnessthis was what originally was prompting her to come to the ER, prior to the fall Vitals noted, in general she is awake and alert pleasant no distress. HEENT no rmocephalic atraumatic mucous membranes are moist. Breathing unlabored no accessory muscle use good effort. Skin shows no rashes no pallor or icterus. Shows good proficiency with incentive spirometeralthough not able to move very big lung volumes, but does give good effort. Abdomen is soft mildly distended mild epigastric and left upper quadrant tenderness without guarding rebound or rigidity. Fall/traumaongoing serial exams, and vigilance for any new injuries given distracting injuries. Fortunately overall appears to be stabilizing in that respect Multiple rib fracturespain under surprisingly good control, on nominal amounts of supplemental oxygen, and even at times on room air. Continue pain control/incentive spirometry. Discussed with patient and daughter should she worsen, we may need to consider pain management consult and considerations for epiduralbut right now this does not appear to be necessary Thoracic compression fracturesminimal pain from thislikely from distracting injuries from the ribs. Pain control as above. Follow Gluteal hematomaappears to have been stabilized. Acute renal failureurine electrolytes would plead towards prerenal, discussed with nephrology their concern was that she did not really show any improvement in spite of a liter of fluid in the ER, followed by 2 L of fluid after admissionbut are not opposed to a retrial of fluids, given that the diuretics have not seem to be helping either. Continue to manage potassiumPT referral given again this afternoon, continue to trend basic metabolic panel. Fortunately EKG not showing acute findings. No urgent indications for dialysis. Hyperkalemiasee above. Next basic metabolic panel at about 1030 tonight DVT prophylaxisright now SCDs given gluteal hematoma, however given that she has had significant trauma, will want to switch to pharmacologic quickly if it appears to be safe to do so. Otherwise as above, patient/daughter updated at the bedside to the best of my ability, and to their satisfaction. Subjective Right rib pain controlled. Drinking PO fluids and using incentive spirometer. Says she feels the need to urinate but nothing coming out. Still feels distended. Review of Systems Review of Systems: All systems reviewed & are unremarkable except as noted in HPI & below Constitutional: no fever and no chills Respiratory: no cough and no dyspnea Cardiovascular: no chest pain Gastrointestinal: + abdominal pain Physical Exam Physical Exam: General: patient resting comfortably, NAD, non-toxic in appearance Skin: warm, dry, intact, bruising on dorsum of hands bilaterally, large bruise on left buttock HEENT: PERRL, EOMI, anicteric sclera, conjunctiva without injection, external ear normal to inspection and nontender, TM visualized with no abnormalities, moist mucus membranes, no oropharyngeal lesions, neck supple, no cervical tenderness, trachea midline, no LAD, no thyromegaly, no JVD Heart: +S1/S2, regular, tachycardic, no murmurs, rubs, or gallops Lungs: equal air entry bilaterally, no rales/rhonchi/wheezes Abd: +BS, distended with tenderness to deep palpation diffusely, no abdominal bruising Ext: warm, 2+ pulses in UE/LE bilaterally, no clubbing/cyanosis or edema, large hematoma left buttock, tender to palpation along right ribs secondary to fractures Neuro: nonfocal, patient AA&O x 4, speech intact, no facial droop, moving all extremities on command with equal strength 5/5 Results & Data Results & Data ([facility]) Vital Signs (Past 12 Hours) Vital Signs Temp Pulse Resp BP BP Pulse Ox 02/09/21 12:55 36.4 C L 61 18 121/74 94 02/09/21 07:58 36.6 C 103 H 14 145/70 H 89 L Resident Activity Tracking Resident Involvement: Resident Care Provided Care Provided: Adult Hospital Medicine (1) Traumatic hematoma of buttock Encounter type: initial encounter Qualified Code(s): S30.0XXA - Contusion of lower back and pelvis, initial encounter (2) Compression fracture of T4 vertebra Encounter type: initial encounter Qualified Code(s): S22.040A - Wedge compression fracture of fourth thoracic vertebra, initial encounter for closed fracture (3) Right rib fracture Encounter type: initial encounter Fracture type: closed Rib fracture type: multiple ribs Qualified Code(s): S22.41XA - Multiple fractures of ribs, right side, initial encounter for closed fracture
[2021-02-09] MEDS ORDERED: PATIROMER CALCIUM SORBITEX 8.4 GM PACK PO ONE (14:11)
[2021-02-09] MEDS ORDERED: PATIROMER CALCIUM SORBITEX 8.4 GM PACK PO STA (14:24)
[2021-02-09] MEDS ORDERED: LACTATED RINGER'S 1,000 ML IV SCH (16:15)
[2021-02-09 17:14] LABS: Albumin Level 2.6 gm/dl (3.4-5.0); BUN Creatinine Ratio 12.3 (10-20); Calcium 7.8 mg/dl (8.5-10.1); Creatinine Clr Calc Pharmacy 13.8 ml/min; Est GFR (African American) 14.5 ml/min; Est GFR (Non-African American) 12.5 ml/min; Phosphorus 6.1 mg/dl (2.5-4.9); Potassium 6.4 mmol/L (3.5-5.1)
--- NOTE | 2021-02-09 18:04 | Billing Data ---
Date of Service February 09, 2021 Coding Level of Care Code 43600 Subseq Hosp Care Lvl 3
[2021-02-09] MEDS ORDERED: INSULIN HUMAN REGULAR IV STA (18:08)
[2021-02-09] MEDS ORDERED: DEXTROSE 50% 50 ML SYRINGE IV STA (18:08)
[2021-02-09] MEDS ORDERED: INSULIN HUMAN REGULAR PER UNIT 10 UNITS in SYRINGE 9.9 ML IV ONE (18:30)
[2021-02-09] MEDS ORDERED: DEXTROSE 50% 50 ML SYRINGE IV ONE (18:30)
[2021-02-09] MEDS: SODIUM CHLORIDE 0.9% 1000ML 1,000 ML IV SCH (20:46)
[2021-02-09 21:00] LABS: Albumin Level 2.5 gm/dl (3.4-5.0); BUN Creatinine Ratio 12.8 (10-20); Creatinine Clr Calc Pharmacy 14.5 ml/min; Est GFR (African American) 15.4 ml/min; Est GFR (Non-African American) 13.3 ml/min; Phosphorus 5.2 mg/dl (2.5-4.9)
[2021-02-10] MEDS ORDERED: HALOPERIDOL LACTATE 5 MG/ML 1 ML VIAL IM STA (05:02)
[2021-02-10 06:33] LABS: Basophils # (auto) 0.03 K/uL (0-0.2); Basophils % (auto) 0.4 %; Eosinophils # (auto) 0.18 K/uL (0-0.5); Eosinophils % (auto) 2.1 %; Hematocrit (blood only) 26.6 % (37-47); Immature Granulocytes # (auto) 0.06 K/uL (0.00-0.02); Immature Granulocytes % (auto) 0.7 %; Lymphocytes # (auto) 1.17 K/uL (1.2-3.4); Lymphocytes % (auto) 13.8 %; Mean Corpuscular Hemoglobin 26.8 pg (25-34); Mean Corpuscular Volume 89.3 fL (80-100); Mean Platelet Volume 8.6 fL (7.4-10.4); Monocytes # (auto) 0.59 K/uL (0.11-0.59); Neutrophils # (auto) 6.42 K/uL (1.4-6.5); Platelet Count 205 K/uL (130-400); RDW Coefficient of Variation 16.9 % (11.5-14.5); RDW Standard Deviation 54.9 fL (36.4-46.3); Red Blood Count 2.98 M/uL (4.2-5.4); White Blood Count 8.45 K/uL (4.8-10.8)
[2021-02-10 06:36] LABS: Mean Corpuscular Hgb Conc 30.1 g/dL (32-36)
[2021-02-10 07:06] LABS: Albumin Level 2.3 gm/dl (3.4-5.0); BUN Creatinine Ratio 15.3 (10-20); Calcium 7.6 mg/dl (8.5-10.1); Est GFR (African American) 17.4 ml/min; Potassium 4.4 mmol/L (3.5-5.1)
[2021-02-10 07:09] LABS: Bilirubin,Total 0.7 mg/dl (0.2-1); Total Protein 5.9 gm/dl (6.4-8.2)
[2021-02-10] MEDS: INSULIN GLARGINE SOLOSTAR 100 UNITS/ML 3 ML PEN SC SCH ×2 (08:10→20:52)
[2021-02-10] MEDS: METOPROLOL SUCC 25MG EXT REL TAB PO SCH ×2 (08:10→08:11)
[2021-02-10] MEDS: DULoxetine HCL 60 MG CAP PO SCH (08:11)
[2021-02-10] MEDS: FAMOTIDINE 20 MG TAB PO SCH (08:11)
[2021-02-10] MEDS: ACETAMINOPHEN 325 MG TAB PO SCH ×2 (08:12→17:14)
[2021-02-10] MEDS: LIDOCAINE 5% 1 PATCH TD SCH ×2 (08:13)
[2021-02-10] MEDS: SODIUM CHLORIDE 0.9% 1000ML 1,000 ML IV SCH ×2 (08:14→20:57)
[2021-02-10 08:55] LABS: Bilirubin Direct 0.2 mg/dl (0-0.2)
--- NOTE | 2021-02-10 08:57 | Surgery Progress Note ---
Date of Service February 10, 2021 Assessment & Plan (1) Abdominal distention: Plan: exam benign will check KUB Admission and Anticipated Discharge Date Admission Date: February 07, 2021 Subjective no nausea, no abdominal pain, no flatus or BM Physical Exam Gastrointestinal (Abdomen): Inspection/Auscultation: + abdomen distended (upper) Percussion/Palpation: abdomen soft; abdomen nontender Results & Data ([facility]) Vital Signs (Past 12 Hours) Vital Signs Temp Pulse Resp BP BP Pulse Ox 02/10/21 08:08 36.7 C 104 H 19 122/66 94 02/10/21 04:38 36.9 C 105 H 15 157/73 H 92 02/09/21 22:50 36.8 C 87 17 116/71 92 PG Care Time/CCT Total # of Minutes Spent Total Time Spent with Patient: Total time spent is greater than 50% in coordination of care (as documented) at patient's floor/unit and/or counseling patient: Coding Level of Care Code 98782 Subseq Hosp Care Lvl 1 Diagnoses Abdominal distention R14.0
[2021-02-10] MEDS: INSULIN ASPART 100 UNITS/ML 3 ML PEN SC SCH ×4 (09:23→20:52)
--- NOTE | 2021-02-10 10:09 | XRay Report ---
XR KUB/Abdomen 1 view CLINICAL HISTORY: Abdominal pain and distention. Constipation COMPARISON STUDY: No previous studies for comparison. TECHNIQUE: Single view of the abdomen. FINDINGS: The bowel gas pattern is within normal limits without evidence for dilatation or obstruction. There i s no evidence for significant fecal stasis or evidence for fecal impaction. There is no evidence for organomegaly or gross intra-abdominal mass. No abnormal calcifications are seen along the course of t he urinary tracts bilaterally. No acute osseous pathology. IMPRESSION: 1.No acute intra-abdominal abnormality. ACT 112: Negative or not required by law. Electronically signed by: Maximiliano Nunez M.D. 02/10/2021 10:08 AM
--- NOTE | 2021-02-10 10:39 | Nephrology Progress Note ---
Date of Service February 10, 2021 Assessment & Plan (1) Acute kidney injury: (2) Oliguria: (3) Right rib fracture: (4) Hypertension: (5) Hyperkalemia: Plan: 80-year-old female admitted after a fall at home, had multiple rib fracture, found to have CHAVA and hyperkalemia. Although she received IV contrast, cr was already higher than her b/l on admission , 1.4 ( b/l cr 1.0). Urinalysis was unremarkable, imaging was negative for postrenal obstruction. Renal function started to improve, urine output more than 1 L overnight, hyperkalemia resolved.Currently her respiratory status seems acceptable on 2 L nasal cannula oxygen, blood pressure stable. -- Okay to continue on IV fluid as respiratory status seems acceptable, monitor intake and output, expect renal function to continue to improve. Will follow Admission and Anticipated Discharge Date Admission Date: February 07, 2021 Subjective Rosalia was seen and examined in her room this morning, overall she is feeling better. Overnight potassium was high and received Veltassa, insulin, D50. Getting IV normal saline. Renal function improved and started making urine. Potassium improved to 4.4. Review of Systems Review of Systems: Detailed review of system was otherwise unremarkable. Physical Exam Constitutional: WD/WN, vitals as above no acute distress Eyes: + anicteric sclerae ENMT: Ears: no hearing impairment Neck: normal visual inspection Respiratory: no respiratory distress and no cough Auscultation: + diminished lung sounds Cardiovascular: Rate/Rhythm: regular rate and regular rhythm Heart Sounds: normal S1 and normal S2 Extremities: no edema Skin: normal turgor; no rashes Neurologic: no focal motor deficits and not confused Psychiatric: Orientation: alert and oriented x 3 Affect: euthymic affect Results & Data ([facility]) Vital Signs (Past 12 Hours) Vital Signs Temp Pulse Resp BP BP Pulse Ox 02/10/21 08:08 36.7 C 104 H 19 122/66 94 02/10/21 04:38 36.9 C 105 H 15 157/73 H 92 02/09/21 22:50 36.8 C 87 17 116/71 92 PG Care Time/CCT Total # of Minutes Spent Total Time Spent with Patient: Total time spent is greater than 50% in coordination of care (as documented) at patient's floor/unit and/or counseling patient: Coding Level of Care Code 41634 Subseq Hosp Care Lvl 2 Diagnoses Acute kidney injury N17.9 Oliguria R34 Right rib fracture S22.41XA Encounter type: initial encounter Fracture type: closed Rib fracture type: multiple ribs Hypertension I10 Hyperkalemia E87.5 (1) Right rib fracture Encounter type: initial encounter Fracture type: closed Rib fracture type: multiple ribs Qualified Code(s): S22.41XA - Multiple fractures of ribs, right side, initial encounter for closed fracture
--- NOTE | 2021-02-10 10:42 | Hospitalist Progress Note ---
Date of Service February 10, 2021 Assessment & Plan (1) Right rib fracture: Plan: 1) Right rib fractures Acute; ribs 3-5, 7, 8, 9 -Pain control * Scheduled IV Tylenol every 8 hours * IV oxycodone 5 mg every 4 hours as needed * IV morphine 4 mg every 4 hours as needed -consider pain management consult if pain worsens 2) T4 compression fracture -see above 3) Traumatic hematoma of buttocks -See #1 above -Initial CT severe showed areas of active extravasation, there was initial concern for abdominal compartment syndrome -Repeat CT abdomen/pelvis showed no evidence of intraabdominal/pelvic hematoma 4) Oliguria -Acute, improving -Initially 2 separate bladder scans showed 50 mL and 65 mL in the bladder -Cr initially 1.4 on admission --> 3.21 --> 3.3 --> 2.8 today -Potassium 4.8 --> 5.6 --> 5.1 --> 5.9; EKG negative for peaked T waves; K elevated to 6.4 on repeat labs, given 10 units insulin + 50mL D50 --> improved to 4.4 today -Was being given Bumex per Nephrology, After discussion, will attempt to give gentle fluids in the setting of pre-renal CHAVA. -Holding bumex and giving gentle fluids seems to be helping, Cr and electrolytes improving and she has increased urine output. -monitor I&Os 5) Anemia -9.8 --> 8.0, cont. to monitor 6) Abdominal distention -Improving, KUB shows no acute abnormalities -Surgery believes this is not compartment syndrome --> advises against any surgery at this time 7) HTN -Chronic; stable -cont. home metoprolol 25 mg and hydrochlorothiazide 12.5 mg daily -Given patient's acute kidney injury, consider holding hydrochlorothiazide 8) DM2 -Patient normally on 70/30 Novolin (40 units at night, 50 units in the morning) -Home regimen held on admission; patient started on 10 units of light Lantus twice daily plus SSI 9) CAD -Chronic; stable -Aspirin held on admission due to patient's traumatic hematomas DVT PPX: SCDs, consider switching to Lovenox at later date. (2) Oliguria: (3) Compression fracture of T4 vertebra: (4) Traumatic hematoma of buttock: (5) Precordial chest pain: (6) Hypertension: (7) Diabetes mellitus, type 2: (8) CAD (coronary artery disease): (9) DVT prophylaxis: Admission and Anticipated Discharge Date Admission Date: February 07, 2021 Supervising Physician Co-Signing Physician Notes I personally examined the patient and verified all pedro points of history and exam, discussed case, and agree with decision making with Dr Moody Still with some chest pain, may be a little bit worse than before but still very tolerable. Is able to get up and around to the bathroom with some help but reasonably independently. No other complaints. Today son is presentupdated to the best of our ability/to his satisfaction. Patient did have some off-and-on confusion. Vitals noted, in general she is awake and alert pleasant no distress. HEENT normocephalic atraumatic mucous membranes are moist. Breathing unlabored no accessory muscle use good effort. Skin shows no rashes no pallor or icterus. No focal neuro deficits Fall/traumafortunately she is several days status post injury with no other new findings involving. Multiple rib fracturespain under surprisingly good control, and showing good progress. Continue pain control/incentive spirometry, but fortunately not showing any worsening Deliriumfortunately fairly mild/waxing and waningeducated son about this/reassurance/supportive care Thoracic compression fracturesminimal pain from thislikely from distracting injuries from the ribs. Pain control as above. Outpatient bone health work-up Gluteal hematomaappears to have been stabilized. Continue to follow Acute renal failureurine electrolytes would plead towards prerenal, improving with fluids. Hyperkalemiaimproved DVT prophylaxisright now SCDs given gluteal hematoma, however given that she has had significant trauma, will want to switch to pharmacologic quickly if it appears to be safe to do so. Otherwise as above Subjective Comfortably sitting in her chair. Still in no pain. Saying she has been peeing more. Feeling a little better than yesterday. Review of Systems Constitutional: no fever and no chills Respiratory: no cough and no dyspnea Cardiovascular: no chest pain Gastrointestinal: + abdominal pain (mild) Physical Exam Physical Exam: General: patient resting comfortably, NAD, non-toxic in appearance Skin: warm, dry, intact, bruising on dorsum of hands bilaterally, large bruise on left buttock HEENT: PERRL, EOMI, anicteric sclera, conjunctiva without injection, external ear normal to inspection and nontender, TM visualized with no abnormalities, moist mucus membranes, no oropharyngeal lesions, neck supple, no cervical tenderness, trachea midline, no LAD, no thyromegaly, no JVD Heart: +S1/S2, regular, tachycardic, no murmurs, rubs, or gallops Lungs: equal air entry bilaterally, no rales/rhonchi/wheezes Abd: +BS, distended with mild tenderness to deep palpation diffusely, no abdominal bruising Ext: warm, 2+ pulses in UE/LE bilaterally, no clubbing/cyanosis or edema, large hematoma left buttock, tender to palpation along right ribs secondary to fractures Neuro: nonfocal, patient AA&O x 4, speech intact, no facial droop, moving all extremities on command with equal strength 5/5 Results & Data Results & Data ([facility]) Vital Signs (Past 12 Hours) Vital Signs Temp Pulse Resp BP BP Pulse Ox 02/10/21 08:08 36.7 C 104 H 19 122/66 94 02/10/21 04:38 36.9 C 105 H 15 157/73 H 92 02/09/21 22:50 36.8 C 87 17 116/71 92 Resident Activity Tracking Resident Involvement: Resident Care Provided Care Provided: Adult Hospital Medicine (1) Traumatic hematoma of buttock Encounter type: initial encounter Qualified Code(s): S30.0XXA - Contusion of lower back and pelvis, initial encounter (2) Compression fracture of T4 vertebra Encounter type: initial encounter Qualified Code(s): S22.040A - Wedge compression fracture of fourth thoracic vertebra, initial encounter for closed fracture (3) Right rib fracture Encounter type: initial encounter Fracture type: closed Rib fracture type: multiple ribs Qualified Code(s): S22.41XA - Multiple fractures of ribs, right side, initial encounter for closed fracture
--- NOTE | 2021-02-10 13:33 | Electrocardiogram Report ---
Test Reason : Blood Pressure : / mmHG Vent. Rate : 083 BPM Atrial Rate : 083 BPM P-R Int : 160 ms QRS Dur : 084 ms QT Int : 416 ms P-R-T Axes : 047 067 058 degrees QTc Int : 488 ms Normal sinus rhythm Nonspecific T wave abnormality Prolonged QT Abnormal ECG When compared with ECG of 08-FEB-2021 19:18, No significant change was found Confirmed by Jaguar Melara ([id number]) on 02/10/2021 1:32:54 PM Referred By: REFERRED SELF Confirmed By:Jaguar Melara
[2021-02-11] MEDS: ACETAMINOPHEN 325 MG TAB PO SCH ×2 (00:04→08:14)
--- NOTE | 2021-02-11 07:22 | Hospitalist Progress Note ---
Date of Service February 11, 2021 Assessment & Plan (1) Right rib fracture: Plan: 1) Right rib fractures Acute; ribs 3-5, 7, 8, 9 -Pain control * Scheduled IV Tylenol every 8 hours * IV oxycodone 5 mg every 4 hours as needed * IV morphine 4 mg every 4 hours as needed -consider pain management consult if pain worsens 2) T4 compression fracture -see above 3) Traumatic hematoma of buttocks -See #1 above -Initial CT severe showed areas of active extravasation, there was initial concern for abdominal compartment syndrome -Repeat CT abdomen/pelvis showed no evidence of intraabdominal/pelvic hematoma 4) Oliguria -Acute, improving -Initially 2 separate bladder scans showed 50 mL and 65 mL in the bladder -Cr initially 1.4 on admission --> 3.21 --> 3.3 --> 2.8 today -Potassium 4.8 --> 5.6 --> 5.1 --> 5.9; EKG negative for peaked T waves; K elevated to 6.4 on repeat labs, given 10 units insulin + 50mL D50 --> improved to 4.4 today -Was being given Bumex per Nephrology, After discussion, will attempt to give gentle fluids in the setting of pre-renal CHAVA. -Holding bumex and giving gentle fluids seems to be helping, Cr and electrolytes improving and she has increased urine output. -monitor I&Os 5) Anemia -9.8 --> 8.0, cont. to monitor 6) Abdominal distention -Improving, KUB shows no acute abnormalities -Surgery believes this is not compartment syndrome --> advises against any surgery at this time 7) HTN -Chronic; stable -cont. home metoprolol 25 mg and hydrochlorothiazide 12.5 mg daily -Given patient's acute kidney injury, consider holding hydrochlorothiazide 8) DM2 -Patient normally on 70/30 Novolin (40 units at night, 50 units in the morning) -Home regimen held on admission; patient started on 10 units of light Lantus twice daily plus SSI 9) CAD -Chronic; stable -Aspirin held on admission due to patient's traumatic hematomas DVT PPX: SCDs, consider switching to Lovenox at later date. (2) Oliguria: (3) Compression fracture of T4 vertebra: (4) Traumatic hematoma of buttock: (5) Precordial chest pain: (6) Hypertension: (7) Diabetes mellitus, type 2: (8) CAD (coronary artery disease): (9) DVT prophylaxis: Admission and Anticipated Discharge Date Admission Date: February 07, 2021 Subjective Comfortably sitting in her chair. Still in no pain. Saying she has been peeing more. Feeling a little better than yesterday. Review of Systems Constitutional: no fever and no chills Respiratory: no cough and no dyspnea Cardiovascular: no chest pain Gastrointestinal: + abdominal pain (mild) Physical Exam Physical Exam: General: patient resting comfortably, NAD, non-toxic in appearance Skin: warm, dry, intact, bruising on dorsum of hands bilaterally, large bruise on left buttock HEENT: PERRL, EOMI, anicteric sclera, conjunctiva without injection, external ear normal to inspection and nontender, TM visualized with no abnormalities, moist mucus membranes, no oropharyngeal lesions, neck supple, no cervical tenderness, trachea midline, no LAD, no thyromegaly, no JVD Heart: +S1/S2, regular, tachycardic, no murmurs, rubs, or gallops Lungs: equal air entry bilaterally, no rales/rhonchi/wheezes Abd: +BS, distended with mild tenderness to deep palpation diffusely, no abdominal bruising Ext: warm, 2+ pulses in UE/LE bilaterally, no clubbing/cyanosis or edema, large hematoma left buttock, tender to palpation along right ribs secondary to fractures Neuro: nonfocal, patient AA&O x 4, speech intact, no facial droop, moving all extremities on command with equal strength 5/5 Results & Data [facility]) Vital Signs (Past 12 Hours) Vital Signs Temp Pulse Resp BP BP Pulse Ox 02/11/21 02:31 36.5 C 95 H 20 134/70 91 02/10/21 22:46 36.7 C 86 16 147/74 H 91 (1) Traumatic hematoma of buttock Encounter type: initial encounter Qualified Code(s): S30.0XXA - Contusion of lower back and pelvis, initial encounter (2) Compression fracture of T4 vertebra Encounter type: initial encounter Qualified Code(s): S22.040A - Wedge compression fracture of fourth thoracic vertebra, initial encounter for closed fracture (3) Right rib fracture Encounter type: initial encounter Fracture type: closed Rib fracture type: multiple ribs Qualified Code(s): S22.41XA - Multiple fractures of ribs, right side, initial encounter for closed fracture
[2021-02-11 07:30] LABS: Basophils # (auto) 0.02 K/uL (0-0.2); Basophils % (auto) 0.2 %; Eosinophils # (auto) 0.11 K/uL (0-0.5); Eosinophils % (auto) 1.3 %; Hematocrit (blood only) 24.1 % (37-47); Hemoglobin 7.4 g/dL (12.0-16.0); Immature Granulocytes # (auto) 0.05 K/uL (0.00-0.02); Immature Granulocytes % (auto) 0.6 %; Lymphocytes # (auto) 1.35 K/uL (1.2-3.4); Lymphocytes % (auto) 16.3 %; Mean Corpuscular Hemoglobin 26.6 pg (25-34); Mean Corpuscular Hgb Conc 30.7 g/dL (32-36); Mean Corpuscular Volume 86.7 fL (80-100); Mean Platelet Volume 8.6 fL (7.4-10.4); Monocytes # (auto) 0.76 K/uL (0.11-0.59); Monocytes % (auto) 9.2 %; Neutrophils # (auto) 5.98 K/uL (1.4-6.5); Neutrophils % (auto) 72.4 %; Platelet Count 218 K/uL (130-400); RDW Coefficient of Variation 16.8 % (11.5-14.5); RDW Standard Deviation 52.2 fL (36.4-46.3); Red Blood Count 2.78 M/uL (4.2-5.4); White Blood Count 8.27 K/uL (4.8-10.8)
[2021-02-11] MEDS: INSULIN ASPART 100 UNITS/ML 3 ML PEN SC SCH ×2 (08:11→11:49)
[2021-02-11 08:12] LABS: Albumin Level 2.3 gm/dl (3.4-5.0); BUN Creatinine Ratio 25.1 (10-20); Calcium 7.8 mg/dl (8.5-10.1); Creatinine Clr Calc Pharmacy 28.7 ml/min; Est GFR (African American) 35.2 ml/min; Est GFR (Non-African American) 30.3 ml/min; Potassium 3.8 mmol/L (3.5-5.1)
[2021-02-11] MEDS: DULoxetine HCL 60 MG CAP PO SCH (08:13)
[2021-02-11] MEDS: FAMOTIDINE 20 MG TAB PO SCH (08:13)
[2021-02-11 08:16] LABS: RBC Morphology Unremarkable
[2021-02-11] MEDS: LIDOCAINE 5% 1 PATCH TD SCH ×2 (08:16→08:17)
[2021-02-11] MEDS: INSULIN GLARGINE SOLOSTAR 100 UNITS/ML 3 ML PEN SC SCH (08:17)
[2021-02-11 08:18] LABS: Albumin Globulin Ratio 0.6 (0.9-2); Globulin 3.6 gm/dl (2.5-4.0); Total Protein 5.9 gm/dl (6.4-8.2)
[2021-02-11] MEDS: SODIUM CHLORIDE 0.9% 1000ML 1,000 ML IV SCH (08:18)
--- NOTE | 2021-02-11 10:55 | Nephrology Progress Note ---
Date of Service February 11, 2021 Assessment & Plan (1) Acute kidney injury: (2) Oliguria: (3) Right rib fracture: (4) Hypertension: (5) Hyperkalemia: Plan: 80-year-old female admitted after a fall at home, had multiple rib fracture, found to have CHAVA and hyperkalemia. Although she received IV contrast, cr was already higher than her b/l on admission , 1.4 ( b/l cr 1.0). Urinalysis was unremarkable, imaging was negative for postrenal obstruction. Renal function continues to improve cr down to 1.6, urine output more than 1 L overnight, hyperkalemia resolved.Currently her respiratory status seems acceptable on 2 L nasal cannula oxygen, blood pressure stable. --Overall doing well, expect renal function to continue to improve. --if DC to rehab, will need to check renal function in few days after discharge. Will sign off. Admission and Anticipated Discharge Date Admission Date: February 07, 2021 Olga Gonzalez was seen and examined in her room this morning, overall she is feeling better. Renal function improved and has decent urine output, electrolyte acceptable. BP well controlled. Review of Systems Review of Systems: Detailed review of system was otherwise unremarkable. Physical Exam Constitutional: WD/WN, vitals as above no acute distress Eyes: + anicteric sclerae Respiratory: no respiratory distress and no cough Auscultation: + diminished lung sounds Cardiovascular: Rate/Rhythm: regular rate and regular rhythm Extremities: no edema Skin: normal turgor; no rashes Neurologic: no focal motor deficits and not confused Psychiatric: Orientation: alert and oriented x 3 Affect: euthymic affect Results & Data ([facility]) Vital Signs (Past 12 Hours) Vital Signs Temp Pulse Resp BP Pulse Ox 02/11/21 07:30 37 C 80 18 138/66 92 02/11/21 02:31 36.5 C 95 H 20 134/70 91 PG Care Time/CCT Total # of Minutes Spent Total Time Spent with Patient: Total time spent is greater than 50% in coordination of care (as documented) at patient's floor/unit and/or counseling patient: Coding Level of Care Code 10451 Subseq Hosp Care Lvl 2 Diagnoses Acute kidney injury N17.9 Oliguria R34 Right rib fracture S22.41XA Encounter type: initial encounter Fracture type: closed Rib fracture type: multiple ribs Hypertension I10 Hyperkalemia E87.5 (1) Right rib fracture Encounter type: initial encounter Fracture type: closed Rib fracture type: multiple ribs Qualified Code(s): S22.41XA - Multiple fractures of ribs, right side, initial encounter for closed fracture
--- NOTE | 2021-02-11 12:16 | Discharge Summary ---
Date of Service February 11, 2021 Admission HPI Per Admitting Provider Lisa Brown is a pleasant 80yo female presenting after a fall down the stairs in her home. Patient has been experiencing some left sided abdominal discomfort for several weeks. She was planning to come to the ER for evaluation of this discomfort. She reports going upstairs to clean herself up before coming to the ER. She misstepped and fell down [address] stairs. She denies syncope or loss of consciousness. was at home during the event and is at bedside today. He states that he heart three distinct thumps then a crash on the floor. He ran out and found the patient laying face down at that bottom of the stairs. She was responsive although slightly confused for approximately 5-8 minutes. She was able to move everything but had some difficulty getting up off the floor. 911 was called and EMS transported the patient to [facility] in a hard cervical collar. Patient is presently complaining of pain on the dorsum of her hands as well as pain on the left buttock, lumbar spine and right ribs. She denies headache, diplopia, chest pain, palpitations, SOB. She denies abdominal pain, nausea, vomiting, diarrhea or constipation. Denies neck pain, numbness/tingling or weakness. The original left sided discomfort for which the patient was coming to have addressed has been ongoing x 2 weeks. It is located in the left chest starting at her breastbone with bandlike radiation into the back. It seems to be worst at night. It is associated with certain movements but does not appear to be exertional in nature. She denies SOB, palpitations, diaphoresis. She is not currently having this discomfort. Patient is vaccinated against Covid and had her booster shot last week. ER Course: Tylenol, Zofran, NSS x 1L Principal Diagnosis Rib fractures, T4 compression fracture Discharge Exam General: patient resting comfortably, NAD, non-toxic in appearance Skin: warm, dry, intact, bruising on dorsum of hands bilaterally, large bruise on left buttock HEENT: PERRL, EOMI, anicteric sclera, conjunctiva without injection, external ear normal to inspection and nontender, TM visualized with no abnormalities, moist mucus membranes, no oropharyngeal lesions, neck supple, no cervical tenderness, trachea midline, no LAD, no thyromegaly, no JVD Heart: +S1/S2, regular, tachycardic, no murmurs, rubs, or gallops Lungs: equal air entry bilaterally, no rales/rhonchi/wheezes Abd: +BS, distended with mild tenderness to deep palpation diffusely, no abdominal bruising Ext: warm, 2+ pulses in UE/LE bilaterally, no clubbing/cyanosis or edema, large hematoma left buttock, tender to palpation along right ribs secondary to fractures Neuro: nonfocal, patient AA&O x 4, speech intact, no facial droop, moving all extremities on command with equal strength 5/5 Discharge Data Allergies Allergy/AdvReac Type Severity Reaction Status Date / Time gluten Allergy Intermediate Hives Verified 02/07/21 22:25 Consultations 02/07/21 23:23 ED Decision to Admit Stat 02/08/21 18:08 Consult Nephrology Routine 02/09/21 02:22 Consult General Surgery Routine Ordered Studies 02/07/21 20:53 CT abd pelvis IV con only Urgent CT cervical spine wo con Urgent CT chest diagnostic w con Urgent CT head/brain wo con Urgent CT lumbar spine w con Urgent CT thoracic spine w con Urgent 02/08/21 17:43 CT abd pelvis wo con Stat Hospital Course (1) Right rib fracture: 1) Right rib fractures Acute; ribs 3-5, 7, 8, 9 -Pain control in hospital * Scheduled IV Tylenol every 8 hours * IV oxycodone 5 mg every 4 hours as needed * IV morphine 4 mg every 4 hours as needed -Can take tylenol after discharge for pain relief. 2) T4 compression fracture -see above 3) Traumatic hematoma of buttocks -See #1 above -Initial CT severe showed areas of active extravasation, there was initial concern for abdominal compartment syndrome -Repeat CT abdomen/pelvis showed no evidence of intraabdominal/pelvic hematoma 4) Oliguria -Acute, improving -Initially 2 separate bladder scans showed 50 mL and 65 mL in the bladder -Cr initially 1.4 on admission --> 3.21 --> 3.3 --> 2.8 --> 1.6 today, much improved -urine output over 1L over night -Was being given Bumex per Nephrology, After discussion, will attempt to give gentle fluids in the setting of pre-renal CHAVA --> Holding bumex and giving gentle fluids seems to be helping, Cr and electrolytes improving and she has increased urine output. -recheck renal panel in a few days at [facility] care facility 5) Hyperkalemia, resolved -Potassium 4.8 --> 5.6 --> 5.1 --> 5.9; EKG negative for peaked T waves; K elevated to 6.4 on repeat labs, given 10 units insulin + 50mL D50 --> 4.4 --> 3.8 5) Anemia -9.8 --> 8.0 --> 7.4 -mild anemia without symptoms may be secondary to several causes including lab error, serial blood draws, being given fluids, and the hematoma experienced during your fall. Daily Hgb should be performed at [facility] to trend anemia. If she becomes hemodynamically unstable or symptomatic with continued low Hgb, she may need to come back to the ER for further evaluation. 6) Abdominal distention -Improving, KUB shows no acute abnormalities -Surgery believes this is not compartment syndrome --> advises against any surgery at this time 7) HTN -Chronic; stable -cont. home regimen 8) DM2 -Patient normally on 70/30 Novolin (40 units at night, 50 units in the morning) -Home regimen held on admission; patient started on 10 units of light Lantus twice daily plus SSI -cont home regimen 9) CAD -Chronic; stable -Aspirin held on admission due to patient's traumatic hematomas -cont. after discharge (2) Oliguria: (3) Compression fracture of T4 vertebra: (4) Traumatic hematoma of buttock: (5) Precordial chest pain: (6) Hypertension: (7) Diabetes mellitus, type 2: (8) CAD (coronary artery disease): (9) DVT prophylaxis: Total Time Total Time Spent Total Time Spent (In Minutes): <30 Discharge Plan Discharge Items Patient Disposition: Transfer Inpatient Rehab Fac Reason For Visit: CHEST PAIN, FELL DOWN STAIRS Discharge Diagnosis: Rib Fractures, T4 compression fracture Condition on Discharge: Fair Activity: Per Instructions section Non-emergency contact: Primary Care Provider Call non-emergency contact if: you have any medication questions, your symptoms worsen and your pain is not controlled Follow-up/Referrals: Александр Harley MD [Primary Care Provider] - Diet: Carb Consistent or DM2 and Heart Healthy Addtl Attending Provider Instructions: You will be sent to an acute rehab facility ([facility]) for further rehabilitation of your rib and thoracic fractures. Otherwise you are medically stable for discharge. Kidney function has significantly improved and your mild anemia without symptoms may be secondary to several causes including serial blood draws, being given fluids, and the hematoma experienced during your fall. You can take Tylenol for pain relief as needed. Please try to stay well hydrated going forward. Daily Hgb should be performed at acute care facility to trend anemia. If you becomes hemodynamically unstable or symptomatic with continued low Hgb, you may need to come back to the ER for further evaluation. Pending Studies at Discharge: No Stand-Alone Forms: My [facility] Skilled Items Patient informed of condition?: Yes DNR: No Discharge Level of Care: Acute rehab Communicable Disease: No Discharge Prognosis: Improving Lines: None Urinary Catheter: No Medications and DC Order Prescriptions: Continued hydrochlorothiazide 12.5 mg capsule 12.5 mg PO DAILY Qty: 90 RF: 3 aspirin [Adult Low Dose Aspirin] 81 mg tablet,delayed release (DR/EC) 81 mg PO DAILY RF: 0 nitroglycerin [Nitrostat] 0.4 mg tablet, sublingual 0.4 mg Sublingual ONCE PRN (Reason: Chest Pain) Qty: 20 RF: 5 Novolin 70/30 U-100 Insulin 100 unit/mL (70-30) Suspension See Rx Instructions .ROUTE .COMPLEX RF: 0 omeprazole 20 mg Tablet,Delayed Release (Dr/Ec) 20 mg PO QAM RF: 0 guaifenesin [Mucinex] 600 mg Tablet Extended Release 12hr 600 mg PO Q12H PRN (Reason: Congestion) RF: 0 metoprolol succinate 50 mg tablet extended release 24 hr 25 mg PO QAM RF: 0 duloxetine [Cymbalta] 60 mg Capsule,Delayed Release(Dr/Ec) 60 mg PO QAM RF: 0 [id number] Tablet 1 tab PO BID RF: 0 Systane (PF) 0.4-0.3 % Dropperette 1 drp OPHTHALMIC (EYE) QID PRN (Reason: Dry Eyes) RF: 0 Vision Formula (with lutein) 1,000 unit-200 mg-60 unit-2 mg Tablet 1 tab PO BID RF: 0 Praluent Pen 75 mg/mL pen injector 75 mg SUBCUT .[id number] RF: 0 Discharge Orders: Discharge Order (Routine); Ordered 02/11/21 Ordered By: Adarsh Moody Admission Data Admit Date/Time: 02/07/21 23:44 Attending Provider: Stephen Chavez Admit Provider: Teresa Madison Primary Care Provider: Александр Harley Other Providers: Teresa Madison ; Edwina Barth ; Jairo Singh ; [facility] Other Interventions: Discharge Summary Assessment (RN) Last Done: 02/11/21 12:40 Supervising Physician Co-Signing Physician Notes I personally examined the patient and verified all pedro points of history and exam, discussed case, and agree with decision making with Dr Moody Doing surprisingly well. Pain under reasonable control. Case discussed with nephrology at bedside. Patient okay with going to rehab. Vitals noted, in general she is awake and alert pleasant no distress. HEENT normocephalic atraumatic mucous membranes are moist. Breathing unlabored no accessory muscle use good effort. Skin shows no rashes no pallor or icterus. No focal neuro deficits Fall/traumafortunately she is several days status post injury with no other new findings involving. Multiple rib fracturespain under surprisingly good control, and showing good progress. Continue pain control/incentive spirometry, but fortunately not showing any worsening, stable for rehab Deliriumfortunately fairly mild/waxing and waningless restrictive environment such as rehab would likely be beneficial for this Thoracic compression fracturesminimal pain from thislikely from distracting injuries from the ribs. Pain control as above. Outpatient bone health work-up Gluteal hematomaappears to have been stabilized. Continue to follow. Acute blood loss anemia relates predominantly to this, but while her hemoglobin did drop a little bit overnight, clinically she appears stable/hemodynamically stableit is almost certain that the drop in hemoglobin is just dilutional not ongoing hemorrhage Acute renal failureurine electrolytes would plead towards prerenal, improving with fluids. Now tolerating p.o. well. Okay by both myself and nephrology to go to rehab with p.o. intake. Outpatient serial basic metabolic panel. Hyperkalemiaimproved DVT prophylaxisright now SCDs given gluteal hematoma, considered switch to pharmacologic DVT prophylaxisbut wanted to give hematoma time to stabilize, and amazingly her mobility improved enough that she is stable for rehab at this time. Distended stomachmay have been the cause of her initial upper abdominal/lower rib pain that was going to have her seek evaluation before she fellfortunately she is eating and drinking okay, nothing appears evident on inpatient surgical evaluationmight be reasonable for outpatient EGD in the near future, but certainly at a very elective basis and only if symptoms persist/recur Otherwise as above Resident Activity Tracking Resident Involvement: Resident Care Provided Care Provided: Adult [facility]
--- NOTE | 2021-02-11 18:00 | Billing Data ---
Date of Service February 10, 2021 Coding Level of Care Code 72895 Subseq Hosp Care Lvl 3
--- NOTE | 2021-02-11 18:01 | Billing Data ---
Date of Service February 11, 2021 Coding Level of Care Code D/C DAY MANAGEMENT <30 MINS
== END 2021-02-11 16:23 | DRG 184 ==
LOC: ED 20:31 → SUATTDRO 23:44 → 2N 23:44 → 2S 02-08 22:26

== ENCOUNTER 2023-07-19 05:17 | Observation (INO) ==
--- NOTE | 2023-06-29 09:09 | PAT Medication Instructions ---
Medication Instructions Date of Service June 29, 2023 Home Medications Medication Instructions Recorded flaxseed oil 1,000 mg capsule 1,000 mg PO DAILY #30 caps 03/15/22 albuterol sulfate 90 mcg/actuation 2 inh inhalation QID PRN shortness 06/09/22 aerosol inhaler of breath or wheezing #8.5 grams pen needle, diabetic 32 gauge x #100 ea 07/01/22 5/32" (BD Haylee 2nd Gen Pen Needle) hydrochlorothiazide 12.5 mg capsule 12.5 mg PO QAM #30 caps 07/06/22 blood sugar diagnostic (OneTouch #100 ea 08/09/22 Ultra Test strips) evolocumab 140 mg/mL subcutaneous 140 mg subcut Q14D #6 mL 10/22/22 pen injector (Harjit Perez) metoprolol succinate 50 mg 25 mg (1/2 x 50 mg) PO QAM #45 tabs 11/01/22 tablet,extended release 24 hr nystatin 100,000 unit/gram topical 1 applic topical BID PRN affected 12/20/22 powder skin folds #30 grams nitroglycerin 0.4 mg sublingual 0.4 mg sublingual ONCE PRN Chest 02/04/23 tablet (Nitrostat) Pain #20 tabs budesonide-formoterol HFA 80 2 puff inhalation Q12H #3 Inhalers 03/16/23 mcg-4.5 mcg/actuation aerosol inhaler (Symbicort) dulaglutide 1.5 mg/0.5 mL 1.5 mg (0.5 mL) subcut Q7D #2 mL 06/06/23 subcutaneous pen injector empagliflozin 25 mg tablet 25 mg PO DAILY #30 tabs 06/27/23 (Jardiance) duloxetine 60 mg capsule,delayed release (Cymbalta) 60 mg PO QAM aspirin 81 mg tablet,delayed release (Adult Low Dose Aspirin) 81 mg PO QAM bupropion HCl 300 mg 24 hr tablet, extended release 300 mg PO QAM fluticasone propionate 50 mcg/actuation nasal spray,suspension 2 spray intranasal QAM PRN flaxseed oil 1,000 mg capsule 1,000 mg PO DAILY albuterol sulfate 90 mcg/actuation aerosol inhaler 2 inh inhalation QID PRN cholecalciferol (vitamin D3) 25 mcg (1,000 unit) tablet (Vitamin D3) 25 mcg PO QAM peg 400-propylene glycol (PF) 0.4 %-0.3 % eye drops in a dropperette (Systane (PF)) 1 drp ophthalmic (eye) QID PRN hydrochlorothiazide 12.5 mg capsule 12.5 mg PO QAM evolocumab 140 mg/mL subcutaneous pen injector (Repatha SureClick) 140 mg subcut Q14D metoprolol succinate 50 mg tablet,extended release 24 hr 25 mg (1/2 x 50 mg) PO QAM insulin aspar prot-insulin aspart 100 unit/mL (70-30) subcutaneous pen (Novolog Mix 70-30FlexPen U-100) 10 unit subcut BID nystatin 100,000 unit/gram topical powder 1 applic topical BID PRN nitroglycerin 0.4 mg sublingual tablet (Nitrostat) 0.4 mg sublingual ONCE PRN mecobalamin (vitamin B12) 2,500 mcg chewable tablet 2,500 mcg PO QAM budesonide-formoterol HFA 80 mcg-4.5 mcg/actuation aerosol inhaler (Symbicort) 2 puff inhalation Q12H dulaglutide 1.5 mg/0.5 mL subcutaneous pen injector 1.5 mg (0.5 mL) subcut Q7D irbesartan 150 mg tablet 150 mg PO QAM omeprazole 40 mg capsule,delayed release 40 mg PO QAM vit A 300 mcg-C 200 mg-E 27 mg-lutein 2 mg and minerals tablet (Vision Formula (with lutein)) 1 tab PO QAM empagliflozin 25 mg tablet (Jardiance) 25 mg PO DAILY STOP 7 days before surgery dulaglutide 1.5 mg/0.5 mL subcutaneous pen injector 1.5 mg (0.5 mL) subcut Q7D STOP 3 days before surgery empagliflozin 25 mg tablet (Jardiance) 25 mg PO DAILY Continue as directed nitroglycerin 0.4 mg sublingual tablet (Nitrostat) 0.4 mg sublingual ONCE PRN(if needed) ASK your prescriber and surgeon aspirin 81 mg tablet,delayed release (Adult Low Dose Aspirin) 81 mg PO QAM evolocumab 140 mg/mL subcutaneous pen injector (Repatha SureClick) 140 mg subcut Q14D STOP taking 2 weeks before surgery (or as soon as possible if surgery is within 2 weeks) flaxseed oil 1,000 mg capsule 1,000 mg PO DAILY STOP taking 24 hours before surgery nystatin 100,000 unit/gram topical powder 1 applic topical BID PRN DO NOT take the morning of surgery cholecalciferol (vitamin D3) 25 mcg (1,000 unit) tablet (Vitamin D3) 25 mcg PO QAM hydrochlorothiazide 12.5 mg capsule 12.5 mg PO QAM mecobalamin (vitamin B12) 2,500 mcg chewable tablet 2,500 mcg PO QAM irbesartan 150 mg tablet 150 mg PO QAM vit A 300 mcg-C 200 mg-E 27 mg-lutein 2 mg and minerals tablet (Vision Formula (with lutein)) 1 tab PO QAM Take morning of surgery With a small sip of water, OTHERWISE NOTHING TO EAT OR DRINK AFTER MIDNIGHT: duloxetine 60 mg capsule,delayed release (Cymbalta) 60 mg PO QAM bupropion HCl 300 mg 24 hr tablet, extended release 300 mg PO QAM fluticasone propionate 50 mcg/actuation nasal spray,suspension 2 spray intranasal QAM PRN(if needed) albuterol sulfate 90 mcg/actuation aerosol inhaler 2 inh inhalation QID PRN(use if needed; please bring with you to hospital day of surgery if possible) peg 400-propylene glycol (PF) 0.4 %-0.3 % eye drops in a dropperette (Systane (PF)) 1 drp ophthalmic (eye) QID PRN(if needed) metoprolol succinate 50 mg tablet,extended release 24 hr 25 mg (1/2 x 50 mg) PO QAM budesonide-formoterol HFA 80 mcg-4.5 mcg/actuation aerosol inhaler (Symbicort) 2 puff inhalation Q12H omeprazole 40 mg capsule,delayed release 40 mg PO QAM Take evening before surgery albuterol sulfate 90 mcg/actuation aerosol inhaler 2 inh inhalation QID PRN(if needed) peg 400-propylene glycol (PF) 0.4 %-0.3 % eye drops in a dropperette (Systane (PF)) 1 drp ophthalmic (eye) QID PRN(if needed) budesonide-formoterol HFA 80 mcg-4.5 mcg/actuation aerosol inhaler (Symbicort) 2 puff inhalation Q12H Insulin Dependent Diabetic Patients * Test your blood sugar the morning of surgery * If Blood Sugar is GREATER THAN 150, take HALF of your regular dose of: insulin aspar prot-insulin aspart 100 unit/mL (70-30) subcutaneous pen (Novolog Mix 70-30FlexPen U-100). * If Blood Sugar is LESS THAN 150, DO NOT TAKE ANY: insulin aspar prot-insulin aspart 100 unit/mL (70-30) subcutaneous pen (Novolog Mix 70-30FlexPen U-100). Other Notes If you have any questions please call us at [phone] or [phone] or [phone] or [phone]
--- NOTE | 2023-07-04 14:34 | Anesthesiology Consultation ---
Date of Service July 04, 2023 Assessment & Plan (1) Encounter for pre-operative examination: - Check BSG AM DOS - Infectious disease screening: Per assessment on 07/04/23: No known infectious disease contacts or current infectious disease symptoms. No noted recent Covid positive test result. - Cardiology visit (02/04/23): "CAD s/p LAD stent: No angina. Normal LV systolic function on 2019 echo. Continue aspirin 81 mg daily indefinitely. Continue beta-alice. Continue lipid management with PCSK9 inhibitor. She does not tolerate high intensity statin therapy.. Dyspnea with exertion: Has chronic pulmonary issues and follows with pulmonology. Inhalers have helped her symptoms. Chronic dyspnea. She appears euvolemic.. Hypertension: Blood pressure is mildly elevated today but typically well controlled. Continue current regimen. Low-sodium diet.. Dyslipidemia: She has not tolerated statin therapy nor Zetia. She did not tolerate Praluent. Continue Repatha.. Edema: Asymmetric with more so edema in the right lower extremity. Overall, edema appears stable. Appears to have some varicose veins; venous insufficiency may be playing a role. Low-sodium diet. Continue HCTZ" - Pulmonary visit (06/16/23): " Mild persistent asthma.. Symptoms very well- controlled at this time. Continue Symbicort twice daily and albuterol as needed.. Dyspnea has improved likely due to better control of her asthma. Dyspnea is multifactorial related to obesity and deconditioning as well.. Chronic cough.. Minimal complaints today.. Follow Up: 1 Year" - Dulaglutide instructions: Patient takes on Fridays. Patient informed at PAT visit to stop 7 days prior to surgery- voiced understanding. DOS 07/19/23. Advised last dose to be 07/08/23. Chart Review Chart Review: Acceptable Risk for Surgery and Patient seen in Pre Admission Testing Teaching & Discussion Pre-Anesthesia Teaching/Discussion Notes: Instructed NPO after midnight before surgery,except medications with 15 cc of water. Medication instructions provided according to the PAT guidelines. History Surgery Operation Date: 07/19/23 07:15 Proposed Procedures p L3-L4, L4-L5 Lumbar Decompression - Des Mayorga MD Height/Weight Height: 4 ft 10 in Weight: 81.1 kg Allergies Allergy/AdvReac Type Severity Reaction Status Date / Time gluten Allergy Intermediate Hives Verified 03/25/24 16:31 semaglutide [From Ozempic] AdvReac Intermediate Nausea,vomiting, Verified 06/27/23 16:31 diarrhea Medications Home Medications Medication Instructions Recorded Confirmed Last Taken duloxetine 60 mg capsule,delayed 60 mg PO QAM 03/30/18 06/27/23 08/10/21 release (Cymbalta) aspirin 81 mg tablet,delayed 81 mg PO QAM 08/14/19 06/27/23 08/10/21 release (Adult Low Dose Aspirin) bupropion HCl 300 mg 24 hr tablet, 300 mg PO QAM 06/22/21 06/27/23 08/10/21 extended release fluticasone propionate 50 2 spray intranasal QAM PRN sinus 07/17/21 06/27/23 07/20/21 mcg/actuation nasal congestion spray,suspension flaxseed oil 1,000 mg capsule 1,000 mg PO DAILY #30 caps 03/15/22 06/27/23 Unknown albuterol sulfate 90 mcg/actuation 2 inh inhalation QID PRN shortness 06/09/22 06/27/23 Unknown aerosol inhaler of breath or wheezing #8.5 grams cholecalciferol (vitamin D3) 25 25 mcg PO QAM 06/25/22 06/27/23 Unknown mcg (1,000 unit) tablet (Vitamin D3) peg 400-propylene glycol (PF) 0.4 1 drp ophthalmic (eye) QID PRN Dry 06/25/22 06/27/23 Unknown %-0.3 % eye drops in a dropperette Eyes (Systane (PF)) pen needle, diabetic 32 gauge x #100 ea 07/01/22 06/27/23 Unknown 5/32" (BD Haylee 2nd Gen Pen Needle) hydrochlorothiazide 12.5 mg capsule 12.5 mg PO QAM #30 caps 07/06/22 06/27/23 Unknown blood sugar diagnostic (OneTouch #100 ea 08/09/22 06/27/23 Unknown Ultra Test strips) evolocumab 140 mg/mL subcutaneous 140 mg subcut Q14D #6 mL 10/22/22 06/27/23 Unk nown pen injector (Harjit Perez) metoprolol succinate 50 mg 25 mg (1/2 x 50 mg) PO QAM #45 tabs 11/01/22 06/27/23 Unknown tablet,extended release 24 hr blood-glucose meter,continuous 11/30/22 06/27/23 Unknown (Dexcom G7 Composing Room Machinist) blood-glucose sensor (Dexcom G7 11/30/22 06/27/23 Unknown Sensor device) insulin aspar prot-insulin aspart 10 unit subcut BID 12/20/22 06/27/23 Unknown 100 unit/mL (70-30) subcutaneous pen (Novolog Mix 70-30FlexPen U-100) nystatin 100,000 unit/gram topical 1 applic topical BID PRN affected 12/20/22 06/27/23 Unknown powder skin folds #30 grams nitroglycerin 0.4 mg sublingual 0.4 mg sublingual ONCE PRN Chest 02/04/23 06/27/23 Unknown tablet (Nitrostat) Pain #20 tabs mecobalamin (vitamin B12) 2,500 2,500 mcg PO QAM 03/01/23 06/27/23 Unknown mcg chewable tablet budesonide-formoterol HFA 80 2 puff inhalation Q12H #3 Inhalers 03/16/23 06/27/23 Unknown mcg-4.5 mcg/actuation aerosol inhaler (Symbicort) dulaglutide 1.5 mg/0.5 mL 1.5 mg (0.5 mL) subcut Q7D #2 mL 06/06/23 06/27/23 Unknown subcutaneous pen injector irbesartan 150 mg tablet 150 mg PO QAM 06/21/23 06/27/23 Unknown omeprazole 40 mg capsule,delayed 40 mg PO QAM 06/21/23 06/27/23 Unknown release vit A 300 mcg-C 200 mg-E 27 1 tab PO QAM 06/21/23 06/27/23 Unknown mg-lutein 2 mg and minerals tablet (Vision Formula (with lutein)) empagliflozin 25 mg tablet 25 mg PO DAILY #30 tabs 06/27/23 06/27/23 Unknown (Jardiance) Past Medical History Medical History Anxiety BOOP (bronchiolitis obliterans with organizing pneumonia) 2005 Brain [place] [facility] [place], stable/no issues CAD (coronary artery disease) 2006- stent x1 Chronic back pain Degenerative disc disease Depression Diabetes mellitus, type 2 IDDM GERD (gastroesophageal reflux disease) Glaucoma no current meds Hiatal hernia History of COVID-19 02/2021- asymptomatic (tested d/t exposure) Hoarseness of voice Hyperlipidemia Hypertension Insomnia Lumbar facet joint syndrome Macular degeneration of both eyes Mild persistent asthma Neurogenic claudication due to lumbar spinal stenosis Oliguria Osteoarthritis Sleep apnea unable to tolerate device Spinal stenosis of lumbar region Exercise / Class Metabolic Activity III < 4 Walking/Shop/Light housework Past Family History Family History Family/Other Family history of diabetes mellitus Father Myocardial infarction CHF (congestive heart failure) Cancer Throat cancer Stroke Hypertension Mother Alzheimer disease Brother Heart disease Other Hearing loss No family history of allergies No family history of bleeding disorder Denies family history of Asthma Past Surgical History Surgical History History of appendectomy History of bronchoscopy History of cardiac cath 2006- stent x1 History of colonoscopy History of laminectomy lumbar x2 History of laparoscopy ovarian cystectomy History of tonsillectomy S/P NIRALI-BSO Past Anesthesia History No Family Hx of Anesthesia Complications and Other (Slow to wake) History of PONV No Hx of PONV and No Hx of Motion Sickness Social History Smoking Status: Never smoker Do You Dip or Chew Tobacco: No Hx Alcohol Use: Yes Alcohol type: beer alcohol intake frequency: holidays/special occasions only Hx Substance Use: No substance use type: does not use Review of Systems Patient denies chest pain, shortness of breath, fever, chills, cough, wheezing, palpitations. Physical Exam Vital Signs BP 125/71 P 77 TEMP 98.3 SP02 95%RA RESP 20 Physical Full cervical extension range of motion. Full TMJ range of motion. TMD 3 finger breaths Mallampati Score 1 Dentition: intact Lungs: clear throughout to auscultation Cardiac: regular rate and rhythm, no murmurs noted Spine: normal Carotid arteries: negative bruit Extremities: no LE edema Short neck Lab Results Anesthesia Preop Results Results Anesthesia Widget: WBC 6.71 K/ul (4.8-10.8) 07/04/23 Hgb 13.2 g/dl (12.0-16.0) 07/04/23 Hct 41.7 % (37.0-47.0) 07/04/23 Plt 239 K/uL (130-400) 07/04/23 Na 141 mmol/L (136-145) 07/04/23 K 4.4 mmol/L (3.5-5.1) 07/04/23 Cl 107 mmol/L (98-107) 07/04/23 CO2 28 mmol/L (21-32) 07/04/23 BUN 18 mg/dl (6-23) 07/04/23 Creat 1.04 mg/dl (0.6-1.2) 07/04/23 Glucose Level 165 mg/dl (70-99(Fasting)) H 07/04/23 PT 10.2 Seconds (9.0-12.0) 07/04/23 PTT 26 Seconds (21-31) 07/04/23 INR 0.9 (0.9-1.1) 07/04/23 HA1c 8.0 % (4.5-5.6) H 07/04/23 Blood Type A Positive 07/04/23 Antibody Screen NEGATIVE 07/04/23 Testing Laboratory Results *Lissette at surgeon's office made aware of elevated A1C* Electrocardiogram Date: 07/04/23 NSR at 73bpm. Rightward axis. Chest X-Ray Date: 07/04/23 FINDINGS: Cardiomediastinal and hilar silhouettes are unchanged. Atherosclerosis of the aorta. Calcified granuloma within the right middle lobe redemonstrated. No pneumothorax, pleural effusion or airspace consolidation. Bones of the chest appear grossly intact. IMPRESSION: No acute process. Echocardiogram Date: 03/07/19 EF 60-65%. No RWMA. No LVH. No significant valvular disease.
[2023-07-19] MEDS: LR 15ML/HR IV SCH (06:05)
[2023-07-19] MEDS ORDERED: DEXAMETHASONE SOD INJ 4 MG/ML VIAL ONE (06:51)
[2023-07-19] MEDS ORDERED: fentaNYL citrate PF 100 MCG/2 ML VIAL ONE ×3 (06:51→10:38)
[2023-07-19] MEDS ORDERED: GLYCOPYRROLATE 0.2 MG/ML VIAL ONE (06:51)
[2023-07-19] MEDS ORDERED: LIDOCAINE 2% 2 ML VIAL/AMP(20MG/ML) INFIL ONE (06:51)
[2023-07-19] MEDS ORDERED: MIDAZOLAM HCL 1 MG/ML 2ML VIAL ONE (06:51)
[2023-07-19] MEDS ORDERED: PROPOFOL IV EMULSION 10 MG/ML 20 ML VIAL IV ONE (06:51)
[2023-07-19] MEDS ORDERED: ONDANSETRON INJ 2 MG/ML 2 ML VIAL ONE (06:51)
[2023-07-19] MEDS ORDERED: ROCURONIUM BROMIDE 10 MG/ML 5 ML VIAL IV ONE (06:51)
[2023-07-19] MEDS ORDERED: fentaNYL citrate PF 100 MCG/2 ML VIAL IV PRN (07:02)
[2023-07-19] MEDS ORDERED: PROMETHAZINE HCL 6.25 MG in SODIUM CHLORIDE 0.9% 50 ML IV PRN (07:02)
[2023-07-19] MEDS ORDERED: ATROPINE SULFATE 0.1 MG/ML 10ML SYR IV PRN (07:02)
[2023-07-19] MEDS ORDERED: HYDROmorphone INJ 2 MG/ML SYR/VIAL IV PRN (07:02)
[2023-07-19] MEDS ORDERED: ONDANSETRON INJ 2 MG/ML 2 ML VIAL IV PRN ×2 (07:02→11:44)
[2023-07-19] MEDS ORDERED: ePHEDrine sulfate 50 MG/ML AMP IV PRN (07:02)
--- NOTE | 2023-07-19 07:19 | History & Physical Bridge Note ---
Date of Service July 19, 2023 History & Physical Bridge Note I have examined the patient, reviewed the History & Physical and in the interval since the performance of the History & Physical I have noted the following changes of clinical significance: no changes noted
[2023-07-19] MEDS: ceFAZolin 2000MG 2,000 MG/15 ML SYR IV SCH (07:25)
[2023-07-19] MEDS: LR 60ML/HR IV SCH (07:32)
[2023-07-19] MEDS ORDERED: SUGAMMADEX SODIUM 200 MG/2 ML VIAL IV ONE (07:46)
[2023-07-19] MEDS ORDERED: ePHEDrine sulfate 50 MG/5 ML SYR ONE (08:41)
[2023-07-19] MEDS: methylPREDNISolone acetate 80 MG/ML VIAL ONE (10:33)
[2023-07-19] MEDS: VANCOMYCIN HCL 1000MG/20ML VIAL ONE (10:33)
[2023-07-19] MEDS: methylPREDNISolone acetate 40 MG/ML VIAL ONE (10:33)
[2023-07-19] MEDS: GELATIN SPONGE SZ 100 ONE (10:34)
[2023-07-19] MEDS: THROMBIN 5000 UNITS KIT ONE (10:34)
[2023-07-19] MEDS: BUPIVACAINE/EPINEPHRINE 0.5% MPF 1:200,000 30 ML VIAL ONE (11:04)
[2023-07-19] MEDS: FLOSEAL HEMOSTATIC MATRIX 10ML TOP ONE (11:04)
[2023-07-19] MEDS ORDERED: oxyCODONE/ACETAMINOPHEN 5mg/325mg TAB PO PRN (11:44)
[2023-07-19] MEDS ORDERED: METOCLOPRAMIDE HCL INJ 5 MG/ML 2 ML VIAL IV PRN (11:44)
[2023-07-19] MEDS ORDERED: MAGNESIUM HYDROXIDE SUSP 30 ML UDC PO PRN (11:44)
[2023-07-19] MEDS ORDERED: diphenhydrAMINE Capsule 25 MG CAP PO PRN (11:44)
[2023-07-19] MEDS ORDERED: DO NOT ADMINISTER FLU VACCINE PRN (11:44)
[2023-07-19] MEDS ORDERED: FAMOTIDINE 20 MG TAB PO PRN (11:44)
[2023-07-19] MEDS ORDERED: hydrOXYzine HCl 25 MG TAB PO PRN (11:44)
[2023-07-19] MEDS ORDERED: ALUMINUM/MAGNESIUM SUSP 30 ML UDC PO PRN (11:44)
[2023-07-19] MEDS ORDERED: NALOXONE HCL 0.4 MG/1 ML VIAL/CARP IV PRN (11:44)
[2023-07-19] MEDS ORDERED: ONDANSETRON 4 MG OD TAB PO PRN (11:44)
[2023-07-19] MEDS ORDERED: LORazepam 0.5 MG in SYRINGE 0.25 ML IV PRN (11:44)
[2023-07-19] MEDS ORDERED: ACETAMINOPHEN 1,000 MG/100 ML VIAL IV PRN (11:44)
[2023-07-19] MEDS ORDERED: SOD PHOSPHATE/SOD BIPHOSPHATE ENEMA 132 ML BTL PR PRN (11:44)
[2023-07-19] MEDS ORDERED: DO NOT ADMINISTER PNEUMOCOCCAL VACCINE PRN (11:44)
[2023-07-19] MEDS ORDERED: HYDROmorphone INJ 0.5 MG/0.5 ML SYR IV PRN (11:44)
[2023-07-19] MEDS ORDERED: bisacodyL 10 MG SUPP PR PRN (11:44)
[2023-07-19] MEDS ORDERED: LORazepam 0.5 MG TAB PO PRN (11:44)
[2023-07-19] MEDS ORDERED: PROMETHAZINE HCL 12.5 MG in SODIUM CHLORIDE 0.9% 50 ML IV PRN (11:44)
--- NOTE | 2023-07-19 11:44 | Post Operative Brief Note ---
PG Immediate Post Op with CF Date of Surgery July 19, 2023 Pre & Post Diagnosis Operation Date: 07/19/23 07:15 Pre-Op Diagnosis: Spinal Stenosis Lumbar Region, Lumbar Disc Herniation Post-Op Diagnosis: Spinal Stenosis Lumbar Region, Lumbar Disc Herniation I identified the patient and participated in the time-out.: Yes Procedure Operation Date: 07/19/23 07:15 Actual Procedures p L3-L4, L4-L5 Lumbar Decompression(Not Applicable) - Des Mayorga MD Surgeon Des Mayorga MD Home Care Nurse none Estimated Blood Loss 20 Findings Consistent with Post-Op Diagnosis Specimens Specimen Description: None per sugeon Drains Rodríguez Catheter
--- NOTE | 2023-07-19 12:01 | Fluoroscopy Report ---
INTRAOPERATIVE RADIOGRAPHS CLINICAL HISTORY: L3-L5 decompression. Fluoro time: 46 seconds Ka,r: 35.92 mGy FINDINGS: 4 spot fluoroscopic views of the lumbar spine are presented. A surgical probe projects post eriorly at the L4-L5 level on the initial 2 images. This projects posterior to the body of L5 on the third image, and in the L4-L5 disc space on the final image. IMPRESSION: Intraoperative images of the lumbar spine as above. Electronically signed by: Doroteo Gómez M.D. 07/19/2023 11:59 AM
[2023-07-19] MEDS ORDERED: NITROGLYCERIN SL 0.4 MG/TAB TAB SL PRN (13:08)
[2023-07-19] MEDS ORDERED: ALBUTEROL HFA 8 GM INHALER INH PRN (13:08)
[2023-07-19] MEDS ORDERED: ARTIFICIAL TEARS OP PRN (13:26)
[2023-07-19] MEDS ORDERED: CARBOHYDRATES FOR HYPOGLYCEMIA PO PRN (14:14)
[2023-07-19] MEDS ORDERED: DEXTROSE 50% 50 ML SYRINGE IV PRN (14:14)
[2023-07-19] MEDS ORDERED: GLUCOSE 40% GEL 15 GM TUBE PO PRN (14:14)
[2023-07-19] MEDS ORDERED: GLUCAGON FOR INJ 1 MG VIAL SQ PRN (14:14)
[2023-07-19] MEDS ORDERED: GLUCOSE 10 TAB/TUBE PO PRN (14:14)
[2023-07-19] MEDS ORDERED: PHARMACY GLYCEMIC MGMT CONSULT PRN (14:14)
[2023-07-19] MEDS: LACTATED RINGER'S 1,000 ML IV SCH (14:37)
[2023-07-19] MEDS: LANTUS PER UNIT CHARGE SQ STA ×2 (14:37→17:32)
[2023-07-19] MEDS: FLUTICASONE/VILANTEROL 100/25MCG 14 PUFFS/INHALER INH SCH (14:40)
--- NOTE | 2023-07-19 14:43 | Pharmacy Report ---
Pharmacy Glycemic Short Note 2 - Date of Service July 19, 2023 - Glycemic Short BSG Results (Last 24 hours): 07/19/23 07/19/23 07/19/23 05:46 11:50 13:19 POC Glucose 160 H 232 H 233 H OUTPATIENT ANTIDIABETIC REGIMEN: * dULAGLUTIDE 1.5 MG Q7D, EMPAGLIFLOZIN 25 MG DAILY, 70/30 12 UNITS BIDM * A1c 8.0% 07/04/23 ASSESSMENT: * Patient admitted POD #0 following lumbar decompression, received dexamethasone 8 mg * Reviewed outpatient endocrinology visit from June 2023: Average glucose 227 mg/dL, time in range 20%, GMI 8.7% * Will utilize weight based dosing initially- novolog weight based stress of 2 and lantus 14 units x 1 with additional per scale if needed; could consider switch to NPH since patient utilizes 70/30 outpatient * Patient had uncovered clears prior to consultation; will assess with next BSG PLAN FOR INPATIENT GLYCEMIC CONTROL: * Hold outpatient oral diabetes medications * Basal insulin * Lantus 14 units x 1 * Bolus insulin * NovoLog per scale ACHS or Q6hrs while NPO * Goal Range: Low 110 mg/dL - High 150 mg/dL * Correction Factor: 30 mg/dL/unit * Nutritional / Prandial insulin per carb ratio of 1 unit per 10 grams CHO consumed
--- NOTE | 2023-07-19 15:52 | Anesthesiology Progress Note ---
Date of Service July 19, 2023 Anesthesia Post Procedure Vital Signs Vital Signs: Temp Pulse Pulse Resp BP Pulse Ox O2 Del Method 07/19/23 15:42 36.6 C 71 16 136/70 91 Room Air 07/19/23 14:45 36.8 C 74 16 125/69 95 Room Air 07/19/23 13:40 75 16 118/58 L 94 Room Air 07/19/23 13:10 36.8 C 82 16 115/67 95 Room Air 07/19/23 12:40 36.9 C 77 16 113/68 95 Room Air 07/19/23 12:20 36.7 C 94 H 15 132/71 95 Room Air 07/19/23 12:10 36.7 C 74 16 129/63 98 Oxymask 07/19/23 12:00 36.7 C 71 12 128/75 93 Oxymask 07/19/23 11:50 70 14 132/69 96 Oxymask 07/19/23 11:40 69 11 L 135/64 96 Oxymask 07/19/23 11:30 69 9 L 120/61 95 Oxymask 07/19/23 11:22 36.5 C 64 10 L 107/73 94 Oxymask 07/19/23 06:00 36.4 C L 75 22 177/76 H 96 Room Air O2 Flow Rate 07/19/23 15:42 07/19/23 14:45 07/19/23 13:40 07/19/23 13:10 07/19/23 12:40 07/19/23 12:20 07/19/23 12:10 3 07/19/23 12:00 5 07/19/23 11:50 7 07/19/23 11:40 7 07/19/23 11:30 7 07/19/23 11:22 7 07/19/23 06:00 Pain Intensity Lower Back: Pain Intensity: 8 Right Leg: Pain Intensity: 8 Transfer of Care Handoff Completed per policy Notes Mental Status: alert / awake / arousable Patient Amnestic to Procedure: Yes Nausea / Vomiting: adequately controlled Pain: adequately controlled Airway Patency, RR, SpO2: stable & adequate BP & HR: stable & adequate Hydration State: stable & adequate Anesthetic Complications: no major complications apparent
[2023-07-19] MEDS: INSULIN ASPART PER UNIT CHARGE SC SCH (17:33)
[2023-07-19] MEDS: ceFAZolin 1000MG 1,000 MG/7.5 ML SYR IV SCH (17:34)
[2023-07-19] MEDS: DOCUSATE SODIUM/SENNA 50/8.6MG TAB PO SCH (20:17)
[2023-07-19] MEDS ORDERED: LANTUS PER UNIT CHARGE SQ ONE (21:00)
[2023-07-19] MEDS: ACETAMINOPHEN 500 MG TAB PO PRN (21:36)
[2023-07-20] MEDS ORDERED: INSULIN ASPART PER UNIT CHARGE SC SCH
[2023-07-20] MEDS: INSULIN ASPART PER UNIT CHARGE SC SCH (00:39)
[2023-07-20] MEDS: POLYETHYLENE (MIRALAX) 17 GM PACK PO SCH (05:11)
[2023-07-20] MEDS: METOPROLOL SUCC 25MG EXT REL TAB PO SCH (08:52)
[2023-07-20] MEDS: PANTOprazole 40 MG TAB PO SCH (08:52)
[2023-07-20] MEDS: hydroCHLOROthiazide 25 MG TAB PO SCH (08:52)
[2023-07-20] MEDS: ASPIRIN 81 MG ECTAB PO SCH (08:53)
[2023-07-20] MEDS: DULoxetine HCL 60 MG CAP PO SCH (08:53)
[2023-07-20] MEDS: buPROPion XL 300 MG TABCR PO SCH (08:53)
[2023-07-20] MEDS: LANTUS PER UNIT CHARGE SQ SCH (09:03)
[2023-07-20] MEDS: IRBESARTAN 150 MG TAB PO SCH (11:02)
--- NOTE | 2023-07-20 11:30 | Orthopedic Progress Note ---
Date of Service July 20, 2023 Assessment & Plan (1) Status post lumbar spine surgery for decompression of spinal cord: Overall, she is doing quite well today with good pain control to the lumbar spine as well as bilateral lower extremities. She will work with physical therapy later this morning to work on ambulation and range of motion exercises. She can be discharged home later this morning pending physical therapy formal evaluation and recommendations. She will follow-up with Dr. Mayorga in 2 weeks for postoperative management. Patient was seen and examined, she noted notable relief in her preoperative symptoms and was pleased with her postoperative result, discharge today. Subjective . Lisa was seen and evaluated this morning resting comfortably in no apparent distress. She notes that her back pain is well-controlled today as well as some improvement to her lower extremity symptoms. She has been out of bed with no significant issues. She has yet to work physical therapy today. She denies any other concerns today. Review of Systems All systems reviewed & are unremarkable except as noted in HPI & below. Physical Exam . On physical examination of the lower back as well as her lower extremity shows the dressing is clean, dry, intact. Motor and sensory function to the lower extremity grossly intact. Intact plantarflexion and dorsiflexion. +2 DP and PT pulses. Less than 2-second capillary refill. Normal sensation. Neurovascular intact. Results & Data Results & Data Laboratory Results . Diagnostic Findings . PG Care Time/CCT Total # of Minutes Spent Total Time Spent with Patient: Total time spent is greater than 50% in coordination of care (as documented) at patient's floor/unit and/or counseling patient: Coding Level of Care Code 27430 Post Operative Follow-Up Diagnoses Status post lumbar spine surgery for decompression of spinal cord Z98.890
--- NOTE | 2023-07-20 11:32 | Discharge Summary ---
Date of Service July 20, 2023 Principal Diagnosis Same as "Discharge Diagnosis" noted below under Discharge Instructions. Discharge Exam . On physical examination of the lower back as well as her lower extremity shows the dressing is clean, dry, intact. Motor and sensory function to the lower extremity grossly intact. Intact plantarflexion and dorsiflexion. +2 DP and PT pulses. Less than 2-second capillary refill. Normal sensation. Neurovascular intact. Discharge Data Consultations 07/19/23 11:44 Consult Hospitalist Routine Procedures Performed Operation Date: 07/19/23 07:15 Actual Procedures p L3-L4, L4-L5 Lumbar Decompression(Not Applicable) - Des Mayorga MD Ordered Studies 07/19/23 07:15 FL spine 1V any level Routine Hospital Course (1) Status post lumbar spine surgery for decompression of spinal cord: On July 19, [address] [facility] and underwent a L3-L4 and L4-L5 lumbar decompression performed by Dr. Mayorga with no complications. She had a general anesthetic. Postoperatively, she was transferred to the PACU for immediate postoperative management and then transferred to the general orthopedic floor in stable condition. Her hospital course was uneventful. On postoperative day #1, her vital signs are stable and her pain is well- controlled. She participated well with physical therapy working on ambulation and range of motion exercises. She was then discharged home in stable condition. She will follow-up with Dr. Mayorga in 2 weeks for postoperative management. PG Care Time/CCT Total # of Minutes Spent Total Time Spent with Patient: Total time spent is greater than 50% in coordination of care (as documented) at patient's floor/unit and/or counseling patient: Discharge Plan Discharge Items Patient Disposition: Home - Self-Care Reason For Visit: Spinal Stenosis Lumbar Region, Lumbar Disc Herniat Discharge Diagnosis: Same Activity: Per Instructions section Non-emergency contact: Surgeon Call non-emergency contact if: your temperature is above 101.5, your wound has increased redness, your wound has increased drainage and your wound pain has increased Follow-up/Referrals: Kala Pa CRNP [Primary Care Provider] - Diet: Regular Addtl Attending Provider Instructions: Please follow Dr. Mayorga Post Operative Instructions that were given in the office upon scheduling surgery. -Dressings will be changed prior to discharge. -Keep Surgical site dry for the next 3 days. -May shower after 3 days with no soaking of the surgical site -May leave surgical site open to air if dry. -Cover the surgical site with a bandage if draining or getting caught on clothes. -Take it easy for the next 2 weeks. (Ex: No Lifting, running, bending, or twisting, etc.). -You will F/u with Dr. Mayorga in 2 weeks for postoperative care. -If any questions or concerns in the mean time, Reach out to [facility] at [phone] Pending Sale To [facility] Driver Provider Instructions: Hospital Medicine: - make sure you are staying hydrated and eating well balanced meals, especially with the hydrochlorothiazide and recent surgery - monitor your blood sugars over the next week, if consistently > 250 please contact your personal carer Pending Studies at Discharge: No Stand-Alone Forms: My [facility], Smoking Cessation Medications and DC Order Prescriptions: Continued bupropion HCl [Wellbutrin XL] 300 mg tablet extended release 24 hr 300 mg PO QAM (DME) pen needle, diabetic [BD Haylee 2nd Gen Pen Needle] 32 gauge x 5/32" needle See Rx Instructions .Route Qty: 100 3RF Rx Instructions: Use to inject insulin BID (DME) OneTouch Ultra Test Strip See Rx Instructions .Route Qty: 100 2RF Rx Instructions: TEST BSGS 3 TIMES DAILY; DX CODE- E11.9 Repatha SureClick 140 mg/mL pen injector 140 mg subcut Q14D Qty: 6 3RF metoprolol succinate 50 mg tablet extended release 24 hr 25 mg PO QAM Qty: 45 3RF budesonide-formoterol [Symbicort] 80-4.5 mcg/actuation HFA aerosol inhaler 2 puff inhalation Q12H Qty: 3 3RF hydrochlorothiazide 12.5 mg capsule 12.5 mg PO QAM Qty: 30 11RF aspirin [Adult Low Dose Aspirin] 81 mg tablet,delayed release (DR/EC) 81 mg PO QAM nystatin 100,000 unit/gram powder 1 applic topical BID PRN (Reason: affected skin folds) Qty: 30 0RF mecobalamin (vitamin B12) 2,500 mcg tablet,chewable 2,500 mcg PO QAM insulin asp prt-insulin aspart [Novolog Mix 70-30FlexPen U-100] 100 unit/mL (70-30) insulin pen 12 unit subcut BID Rx Instructions: 06/21/23>adjusting dosages frequently to get "ready for surgery" flaxseed oil 1,000 mg capsule 1,000 mg PO DAILY Qty: 30 0RF Rx Instructions: administer with a meal albuterol sulfate 90 mcg/actuation HFA aerosol inhaler 2 inh inhalation QID PRN (Reason: shortness of breath or wheezing) Qty: 8.5 3RF nitroglycerin [Nitrostat] 0.4 mg tablet, sublingual 0.4 mg Sublingual ONCE PRN (Reason: Chest Pain) Qty: 20 5RF Rx Instructions: Take 1 tablet every 5 minutes as needed for chest pain. Do not exceed 3 doses at a time. (DME) Dexcom G7 Sensor Device See Rx Instructions .Route Rx Instructions: change every 10 days (DME) Dexcom G7 Juke Box Servicer Misc See Rx Instructions .Route Rx Instructions: As directed Jardiance 25 mg tablet 25 mg PO DAILY Qty: 30 5RF Rx Instructions: Take one tablet by mouth once a day. dulaglutide 1.5 mg/0.5 mL pen injector 1.5 mg subcut Q7D Qty: 2 3RF Patient Comments: fridays Rx Instructions: Increase to Trulicity 1.5 duloxetine [Cymbalta] 60 mg Capsule,Delayed Release(Dr/Ec) 60 mg PO QAM fluticasone propionate 50 mcg/actuation spray,suspension 2 spray intranasal QAM PRN (Reason: sinus congestion) Rx Instructions: 2 sprays each nostril daily x 3 weeks then 1 spray each nostril dily. Systane (PF) 0.4-0.3 % Dropperette 1 drp ophthalmic (eye) QID PRN (Reason: Dry Eyes) cholecalciferol (vitamin D3) [Vitamin D3] 25 mcg (1,000 unit) Tablet 25 mcg PO QAM omeprazole 40 mg capsule,delayed release(DR/EC) 40 mg PO QAM irbesartan [Avapro] 150 mg tablet 150 mg PO QAM Rx Instructions: Take ONE tablet by mouth once daily. Vision Formula (with lutein) 300 mcg-200 mg-27 mg-2 mg tablet 1 tab PO QAM Rx Instructions: administer after a meal Discharge Orders: Discharge Order (Routine); Ordered 07/20/23 Ordered By: Elia Lane Admission Data Admit Date/Time: 07/19/23 11:44 Attending Provider: Des Mayorga Admit Provider: Des Mayorga Primary Care Provider: Kala Pa Other Providers: Mariano Agrawal Other Interventions: Discharge Summary Assessment (RN) Last Done: 07/20/23 12:21
--- NOTE | 2023-07-20 11:36 | Hospitalist Consultation ---
Date of Consultation July 20, 2023 Assessment & Plan (1) Status post lumbar spine surgery for decompression of spinal cord: - S/P L3-L5 lumbar decompression with Dr. Mayorga 07/18 - Pain control, bowel regiment, dvt proh and abx per primary team - EBL 20 No post-op labs drawn by primary team, however patient is dressed with discharge orders placed by primary team at the time of my evaluation. Patient without hypoxia, pallor, or difficulty urination - will defer any labs at this time. (2) Chronic kidney disease, stage 3b: Baseline GFR ~ 40-45 Patient did not have labs drawn and was given HCTZ post op day #1. Discussed with patient and family importance of staying hydrated over the next few days. Consider outpatient BMP within the next week. (3) Depression with anxiety: Stable Continue home medications - wellbutrin and cymbalta. (4) Hypertension: Continue home - HCTZ and irbesartan. Patient did receive HCTZ, post op day #1 - stressed the importance of staying hydrated. (5) Diabetes mellitus, type 2: Continue check BS at home - no changes to home regiment - instructed to continue checking BS at home, notify outpatient provider if BS > 250 Plan Dispo: medically stable Thank you for allowing us to participate in the care of this patient, please reach out with any questions or concerns History of Present Illness Reason for Consultation: medical management Attending Physician: Des Mayorga MD History of Present Illness Ms. Brown is an 83F with a PMH of HTN, DMT2, CAD, CKD3, depression and anxiety who present to the hospital for elective back surgery with Dr. Mayorga. Patient underwent L3-L5 Lumbar decompression on 07/19. Day of consult she is feeling well, reports no pain, tolerating diet and anxious to go home. Has been passing gas but no BM since surgery. Allergies Allergy/AdvReac Type Severity Reaction Status Date / Time gluten Allergy Intermediate Hives Verified 07/19/23 05:46 semaglutide [From Ozempic] AdvReac Intermediate Nausea,vomiting, Verified 07/19/23 05:46 diarrhea Home Medications Medication Instructions Recorded Confirmed Type duloxetine 60 mg capsule,delayed 60 mg PO QAM 03/30/18 07/19/23 History release (Cymbalta) aspirin 81 mg tablet,delayed 81 mg PO QAM 08/14/19 07/19/23 History release (Adult Low Dose Aspirin) bupropion HCl 300 mg 24 hr tablet, 300 mg PO QAM 06/22/21 07/19/23 History extended release (Wellbutrin XL) fluticasone propionate 50 2 spray intranasal QAM PRN sinus 07/17/21 07/19/23 History mcg/actuation nasal congestion spray,suspension flaxseed oil 1,000 mg capsule 1,000 mg PO DAILY #30 caps 03/15/22 07/19/23 Rx albuterol sulfate 90 mcg/actuation 2 inh inhalation QID PRN shortness 06/09/22 07/19/23 Rx aerosol inhaler of breath or wheezing #8.5 grams cholecalciferol (vitamin D3) 25 25 mcg PO QAM 06/25/22 07/19/23 History mcg (1,000 unit) tablet (Vitamin D3) peg 400-propylene glycol (PF) 0.4 1 drp ophthalmic (eye) QID PRN Dry 06/25/22 07/19/23 History %-0.3 % eye drops in a dropperette Eyes (Systane (PF)) pen needle, diabetic 32 gauge x #100 ea 07/01/22 06/27/23 Rx 5/32" (BD Haylee 2nd Gen Pen Needle) blood sugar diagnostic (OneTouch #100 ea 08/09/22 06/27/23 Rx Ultra Test strips) evolocumab 140 mg/mL subcutaneous 140 mg subcut Q14D #6 mL 10/22/22 07/19/23 Rx pen injector (Harjit Perez) metoprolol succinate 50 mg 25 mg (1/2 x 50 mg) PO QAM #45 tabs 11/01/22 07/19/23 Rx tablet,extended release 24 hr blood-glucose meter,continuous 11/30/22 06/27/23 History (Dexcom G7 Resident Care Technician) blood-glucose sensor (Dexcom G7 11/30/22 06/27/23 History Sensor device) insulin aspar prot-insulin aspart 12 unit subcut BID 12/20/22 07/19/23 History 100 unit/mL (70-30) subcutaneous pen (Novolog Mix 70-30FlexPen U-100) nystatin 100,000 unit/gram topical 1 applic topical BID PRN affected 12/20/22 07/19/23 Rx powder skin folds #30 grams nitroglycerin 0.4 mg sublingual 0.4 mg sublingual ONCE PRN Chest 02/04/23 07/19/23 Rx tablet (Nitrostat) Pain #20 tabs mecobalamin (vitamin B12) 2,500 2,500 mcg PO QAM 03/01/23 07/19/23 History mcg chewable tablet budesonide-formoterol HFA 80 2 puff inhalation Q12H #3 Inhalers 03/16/23 07/19/23 Rx mcg-4.5 mcg/actuation aerosol inhaler (Symbicort) dulaglutide 1.5 mg/0.5 mL 1.5 mg (0.5 mL) subcut Q7D #2 mL 06/06/23 07/19/23 Rx subcutaneous pen injector irbesartan 150 mg tablet (Avapro) 150 mg PO QAM 06/21/23 07/19/23 History omeprazole 40 mg capsule,delayed 40 mg PO QAM 06/21/23 07/19/23 History release vit A 300 mcg-C 200 mg-E 27 1 tab PO QAM 06/21/23 07/19/23 History mg-lutein 2 mg and minerals tablet (Vision Formula (with lutein)) empagliflozin 25 mg tablet 25 mg PO DAILY #30 tabs 06/27/23 07/19/23 Rx (Jardiance) hydrochlorothiazide 12.5 mg capsule 12.5 mg PO QAM #30 caps 07/15/23 07/19/23 Rx Patient History Medical History Anxiety BOOP (bronchiolitis obliterans with organizing pneumonia) 2005 Brain aneurysm Follows with [facility] [place] neuro [id number], stable/no issues CAD (coronary artery disease) 2006- stent x1 Chronic back pain Degenerative disc disease Depression Diabetes mellitus, type 2 IDDM GERD (gastroesophageal reflux disease) Glaucoma no current meds Hiatal hernia History of COVID-19 02/2021- asymptomatic (tested d/t exposure) Hoarseness of voice Hyperlipidemia Hypertension Insomnia Lumbar facet joint syndrome Macular degeneration of both eyes Mild persistent asthma Neurogenic claudication due to lumbar spinal stenosis Oliguria Osteoarthritis Sleep apnea unable to tolerate device Spinal stenosis of lumbar region Surgical History History of appendectomy History of bronchoscopy History of cardiac cath 2006- stent x1 History of colonoscopy History of laminectomy lumbar x2 History of laparoscopy ovarian cystectomy History of tonsillectomy S/P NIRALI-BSO Family History Family/Other Family history of diabetes mellitus Father Myocardial infarction CHF (congestive heart failure) Cancer Throat cancer Stroke Hypertension Mother Alzheimer disease Brother Heart disease Other Hearing loss No family history of allergies No family history of bleeding disorder Denies family history of Asthma Social History Smoking Status: Never smoker Second Hand Exposure: Yes (hx growing up); Do You Dip or Chew Tobacco: No; Tobacco Cessation Education Requested by Patient: No Hx Alcohol Use: Yes Alcohol type: beer Alcohol Intake Frequency: Monthly or Less Hx Substance Use: No Preferred Language: Bahraini Communication Ability: Effective Visual Impairment: No Limitations Hearing Ability: Normal Foundation Stage Teacher Required: No Beliefs That Will Affect Care: None marital status: Current Living Situation: Spouse current occupational status: retired How many Children do You have: 2 Other Information That Helps Us Care for You: No Feels Safe at Home: Yes Safety Concerns: Feels Safe At This Time Childhood Exposure to Second-Hand Smoke: Yes Diet: regular caffeine: No during the past year weight has: remained stable Dental Care, Regularly: Yes Physical Activity Frequency: Daily Seatbelt Use: always Sunscreen Use: No Assistive Devices: Walker Review of Systems Review of Systems: All systems reviewed & are unremarkable except as noted in Subjective Physical Exam Physical Exam: General: NAD, sitting up in the chair, dressed in street clothes, VS as above Resp: normal respiratory effort, lungs clear to auscultation CV: RRR, no murmur, Abd: normal bowel sounds, non tender, no hepatosplenomegaly Extremities: Moves all extremities, dyan hose in place Neuro: A&O x3, Results & Data Results & Data Vital Signs (Past 12 Hours) Vital Signs Temp Pulse Resp BP Pulse Ox O2 Del Method 07/20/23 07:16 36.7 C 62 18 127/70 94 Room Air 07/20/23 03:00 36.7 C 66 14 131/72 95 Room Air PG Care Time/CCT Total # of Minutes Spent Total Time Spent with Patient: Total time spent is greater than 50% in coordination of care (as documented) at patient's floor/unit and/or counseling patient: Coding Level of Care Code 35925 IN/OBS CONSULT LVL 3,45M Diagnoses Status post lumbar spine surgery for decompression of spinal cord Z98.890 Chronic kidney disease, stage 3b N18.32 Depression with anxiety F41.8 Primary hypertension I10 Hypertension type: primary hypertension Type 2 diabetes mellitus with stage 3b chronic kidney disease, with long-term current use of insulin E11.22; N18.32; Z79.4 Chronic kidney disease stage: stage 3 (moderate) Chronic kidney disease stage 3 subtype: stage 3b (GFR 30-44) Diabetes mellitus complication detail: with chronic kidney disease Diabetes mellitus complication status: with kidney complications Diabetes mellitus intermediate insulin use: with intermediate use (4) Hypertension Hypertension type: primary hypertension Qualified Code(s): I10 - Essential (primary) hypertension (5) Diabetes mellitus, type 2 Chronic kidney disease stage: stage 3 (moderate) Chronic kidney disease stage 3 subtype: stage 3b (GFR 30-44) Diabetes mellitus complication detail: with chronic kidney disease Diabetes mellitus complication status: with kidney complications Diabetes mellitus intermediate insulin use: with manager long term care use Qualified Code(s): E11.22 - Type 2 diabetes mellitus with diabetic chronic kidney disease; N18.32 - Chronic kidney disease, stage 3b; Z79.4 - terminal operations manager (current) use of insulin
--- NOTE | 2023-07-22 19:55 | Operative Report ---
PG Post Operative Report Pre & Post Diagnosis Operation Date: 07/19/23 07:15 Pre-Op Diagnosis: Spinal Stenosis Lumbar Region, Lumbar Disc Herniation Post-Op Diagnosis: Spinal Stenosis Lumbar Region, Lumbar Disc Herniation I identified the patient and participated in the time-out.: Yes Procedure Operation Date: 07/19/23 07:15 Actual Procedures p L4-L5 Lumbar Decompression(Not Applicable) - Des Mayorga MD Surgeon Des Mayorga MD Stand Up Comedian none Estimated Blood Loss 20 Findings Consistent with Post-Op Diagnosis Specimens None Description of Procedure 1. L4-5 posterior lumbar decompression, laminectomy. (99970) Patient was taken the operating room after adequate anesthesia was carefully positioned prone on a Vinnie frame. Preprepped was performed in the lumbar region followed by then bringing in fluoroscopy by then marked for the incision area over the L4-5 level. Prep and drape was performed, I began the procedure with a midline incision taken down through the interlaminar region on the right side, and then confirmed my location fluoroscopically. Once in place, I set the tube retractors, and began the procedure with a right-sided laminectomy. Resection of the superior laminar region of L4 and a portion of the superior laminar edge of L5 along with a medial facetectomy was performed. The decompression then extended across the posterior aspect to the opposite side where the ligamentum flavum was resected along with some of the epidural lipomatosis to the medial aspect of the facet on the opposite side. Additional spondylosis was then also resected posteriorly with decompression of the exiting L4 and L5 nerve roots. With this completed, inspection revealed decompression of the nerve roots in the epidural region and the L4-5 segment. Irrigation was then applied, inspection revealed no evidence of any CSF leakage. Some Floseal was applied, local was injected in the operative area followed by vancomycin powder. Closure was obtained with closure of the fascial layer with 0 Vicryl sutures, additional layer of 0 Vicryl sutures 2-0 Vicryl sutures and evangelina for the skin. Patient tolerated procedure well was taken to the recovery in satisfactory condition. I attest to the content of the Intraoperative Record and any orders documented therein. Any exceptions are noted below.
== END 2023-07-20 12:37 | disposition home or self-care (01) ==
LOC: 3W 05:17 → ASU 05:17